=== PATIENT | male | born 1935 | race Caucasian/White ===

== ENCOUNTER → 2016-08-20 | Outpatient (CLI) | payer OTHER ==
[~2016-08-20] MED LIST: ALLO300T2 PO; ASPI81TA28 PO; GLC/500 PO; GLIP5TAB3 PO; INDA1TAB3 PO; LEVO125T72 PO; LOSA1TAB38 PO; SIMV40TA2 PO; VSK5 PO
[2016-08-21 06:59] LABS: ESTIMATED AVERAGE GLUCOSE 134 mg/dl; HA1C FLAG Normal (Normal)
== END | disposition home or self-care (01) ==
LOC: C.LAB1850 15:00
PROVIDERS: ATTEND Internal Medicine
DX: E11.9 Type 2 diabetes mellitus without complications (principal)

== ENCOUNTER → 2016-11-18 | Outpatient (CLI) | payer OTHER ==
[2016-11-18 09:38] LABS: BASO % 0.2 %; BASO ABS # 0.02 K/uL (0-0.2); COMPLETE YES; EOS % 5.9 %; HEMATOCRIT 40.3 % (42-52); IG% 0.5 %; LYMPH % 32.9 %; LYMPH ABS # 2.77 K/uL (1.2-3.4); MEAN CELL VOLUME 89.2 fL (80-100); MEAN CORPUSCULAR HEMOGLOBIN 29.2 pg (25-34); MEAN CORPUSCULAR HGB CONC 32.8 g/dl (32-36); MEAN PLATELET VOLUME 12.1 fL (7.4-10.4); MONO % 7.5 %; PLATELET COUNT 190 K/uL (130-400); RED BLOOD COUNT 4.52 M/uL (4.7-6.1); WHITE BLOOD COUNT 8.41 K/uL (4.8-10.8)
[2016-11-18 09:56] LABS: ESTIMATED AVERAGE GLUCOSE 143 mg/dl; HA1C FLAG Normal (Normal)
[2016-11-18 10:01] LABS: ALT/SGPT 27 U/L (12-78); AST/SGOT 13 U/L (15-37); BLOOD UREA NITROGEN 18 mg/dl (7-18); CALCIUM 8.8 mg/dl (8.5-10.1); CARBON DIOXIDE 31 mmol/L (21-32); CHLORIDE 103 mmol/L (98-107); GLUCOSE 121 mg/dl (70-99); POTASSIUM 4.1 mmol/L (3.5-5.1); SODIUM 138 mmol/L (136-145)
[2016-11-18 10:12] LABS: CHOLESTEROL 82 mg/dl (0-200); CHOLESTEROL/HDL RATIO 2.3; HDL CHOLESTEROL 35 mg/dl; LDL CHOLESTEROL CALCULATED 31 mg/dl; THYROID STIMULATING HORMONE 0.544 uIu/ml (0.300-4.500); TRIGLYCERIDES 79 mg/dl (0-150); VERY LOW DENSITY LIPOPROT CALC 16 mg/dl
== END | disposition home or self-care (01) ==
LOC: C.LAB1850 08:08
PROVIDERS: ATTEND Internal Medicine
DX: E11.9 Type 2 diabetes mellitus without complications (principal)

== ENCOUNTER → 2016-12-30 | Outpatient (CLI) | payer OTHER ==
[~2016-12-30] MED LIST changes: +OPTIRAY 320 IV PRN
--- NOTE | 2016-12-30 12:14 | DIAGNOSTIC IMAGING REPORT ---
MAXILLOFACIAL CT WITH CONTRAST CLINICAL HISTORY: Right cheek mass. TECHNIQUE: Helical axial images of the face were obtained following intravenous injection of 92 cc Optiray 320 IV. Sagittal and coronal reconstructions were viewed. COMPARISON STUDY: None. FINDINGS: Visualization portions of the intracranial contents are unremarkable. There is no upper cervical lymphadenopathy. There is moderate polypoid mucosal thickening of the maxillary sinuses. There are no areas of bony destruction. Note is made of a 5.4 x 3.5 x 3.1 cm fat containing mass of the right aspect of the face which overlies the right masseter muscle. This appears to be intimately associated with the underlying masseter muscle and appears to have a capsule. Areas of increased attenuation within this fatty lesion are present. This mass abuts the right parotid gland. This reflects the palpable abnormality. No additional masses within the face are identified on this examination. IMPRESSION: 5.4 x 3.5 x 3.1 cm complex fat-containing right facial mass which reflects the palpable abnormality. This mass is intimately associated with the underlying right masseter muscle and appears to have a capsule. Although predominantly fatty, areas of increased attenuation are noted within this lesion and therefore this does not reflect a typical lipoma. Differential considerations include an atypical lipoma or liposarcoma. Surgical consultation is recommended. Electronically signed by: Stephen Florian M.D. 12/30/2016 12:13 PM Dictated Date/Time: 12/30/2016 11:55 AM
== END | disposition home or self-care (01) ==
LOC: C.CTS 11:20
PROVIDERS: ATTEND Dentist Oral and Maxillofacial Surgery
DX: R22.0 Localized swelling, mass and lump, head (principal)

== ENCOUNTER → 2017-01-06 | Outpatient (CLI) | payer OTHER ==
[~2017-01-06] MED LIST changes: -OPTIRAY 320 IV PRN
== END | disposition home or self-care (01) ==
LOC: C.PATH 08:09
PROVIDERS: ATTEND Dentist Oral and Maxillofacial Surgery
DX: R22.0 Localized swelling, mass and lump, head (principal)

== ENCOUNTER → 2017-03-23 | Outpatient (CLI) | payer OTHER ==
[2017-03-23 12:43] LABS: ESTIMATED AVERAGE GLUCOSE 137 mg/dl; HA1C FLAG Normal (Normal)
--- NOTE | 2017-04-02 07:40 | CODING QUERY MEDICAL NECESSITY ---
CQSUPPORTING DIAGNOSIS NEEDED A supporting diagnosis is required for the test/procedure performed on this patient in order for us to be reimbursed by the patient's insurance. Please provide a supporting diagnosis for the following test/procedure listed below next to the test name along with your signature. *If there is no additional diagnosis for this patient that would support the following test/procedure please document that below next to the test/procedure. Test(s)/Procedure(s) that require a supporting diagnosis: DOS 03/23/17 GLYCATED HEMOGLOBIN TEST Provider Signature: Date: Thank you Makayla Rocha Health Information Management Once completed, please kindly fax back to [phone] For questions please call [phone]
== END | disposition home or self-care (01) ==
LOC: C.LAB1850 09:59
PROVIDERS: ATTEND Internal Medicine
DX: E78.00 Pure hypercholesterolemia, unspecified (principal)

== ENCOUNTER → 2017-06-29 | Outpatient (CLI) | payer OTHER ==
[2017-06-29 09:41] LABS: BASO % 0.2 %; BASO ABS # 0.02 K/uL (0-0.2); COMPLETE YES; EOS % 6.1 %; HEMATOCRIT 42.1 % (42-52); IG% 0.4 %; LYMPH % 29.9 %; LYMPH ABS # 2.86 K/uL (1.2-3.4); MEAN CELL VOLUME 90.5 fL (80-100); MEAN CORPUSCULAR HEMOGLOBIN 29.2 pg (25-34); MEAN CORPUSCULAR HGB CONC 32.3 g/dl (32-36); MEAN PLATELET VOLUME 12.9 fL (7.4-10.4); MONO % 9.6 %; NEUT % 53.8 %; PLATELET COUNT 164 K/uL (130-400); RED BLOOD COUNT 4.65 M/uL (4.7-6.1); WHITE BLOOD COUNT 9.55 K/uL (4.8-10.8)
[2017-06-29 09:59] LABS: URINE APPEARANCE CLEAR (CLEAR); URINE BILIRUBIN NEG (NEG); URINE COLOR YELLOW; URINE NITRITE NEG (NEG); URINE SPECIFIC GRAVITY 1.018 (1.000-1.030); UROBILINOGEN NEG (NEG)
[2017-06-29 10:03] LABS: MANUAL MICROSCOPIC REQUIRED? NO; REVIEW REQ? NO
[2017-06-29 10:32] LABS: ESTIMATED AVERAGE GLUCOSE 134 mg/dl; HA1C FLAG Normal (Normal)
[2017-06-29 10:35] LABS: ALT/SGPT 27 U/L (12-78); AST/SGOT 14 U/L (15-37); BLOOD UREA NITROGEN 24 mg/dl (7-18); BUN/CREATININE RATIO 21.8 (10-20); CALCIUM 9.1 mg/dl (8.5-10.1); CARBON DIOXIDE 30 mmol/L (21-32); CHLORIDE 101 mmol/L (98-107); CREATININE 1.12 mg/dl (0.60-1.40); GLUCOSE 98 mg/dl (70-99); POTASSIUM 4.2 mmol/L (3.5-5.1); SODIUM 136 mmol/L (136-145)
[2017-06-29 10:45] LABS: CHOLESTEROL 86 mg/dl (0-200); CHOLESTEROL/HDL RATIO 2.4; HDL CHOLESTEROL 36 mg/dl; LDL CHOLESTEROL CALCULATED 29 mg/dl; THYROID STIMULATING HORMONE 0.908 uIu/ml (0.300-4.500); TRIGLYCERIDES 105 mg/dl (0-150); URIC ACID 3.9 mg/dl (2.6-7.2); VERY LOW DENSITY LIPOPROT CALC 21 mg/dl
== END | disposition home or self-care (01) ==
LOC: C.LAB1850 07:40
PROVIDERS: ATTEND Internal Medicine
DX: E11.9 Type 2 diabetes mellitus without complications (principal)

== ENCOUNTER → 2017-09-28 | Outpatient (CLI) | payer OTHER ==
[2017-09-28 12:33] LABS: HEMOGLOBIN A1C 6.1 % (4.5-5.6)
== END | disposition home or self-care (01) ==
LOC: C.LAB1850 10:02
PROVIDERS: ATTEND Internal Medicine
DX: E11.9 Type 2 diabetes mellitus without complications (principal)

== ENCOUNTER 2020-06-06 21:32 | Inpatient (IN) ==
[2020-06-06 22:06] LABS: Basophils # (auto) 0.02 K/uL (0-0.2); Basophils % (auto) 0.2 %; Eosinophils # (auto) 0.51 K/uL (0-0.5); Eosinophils % (auto) 4.8 %; Hematocrit (blood only) 39.7 % (42-52); Hemoglobin 12.6 g/dL (14.0-18.0); Immature Granulocytes # (auto) 0.04 K/uL (0.00-0.02); Immature Granulocytes % (auto) 0.4 %; Lymphocytes # (auto) 2.32 K/uL (1.2-3.4); Lymphocytes % (auto) 21.7 %; Mean Corpuscular Hemoglobin 27.5 pg (25-34); Mean Corpuscular Hgb Conc 31.7 g/dL (32-36); Mean Corpuscular Volume 86.7 fL (80-100); Mean Platelet Volume 12.2 fL (7.4-10.4); Monocytes % (auto) 6.6 %; Neutrophils # (auto) 7.08 K/uL (1.4-6.5); Neutrophils % (auto) 66.3 %; Platelet Count 195 K/uL (130-400); RDW Coefficient of Variation 14.5 % (11.5-14.5); RDW Standard Deviation 45.5 fL (36.4-46.3); Red Blood Count 4.58 M/uL (4.7-6.1); White Blood Count 10.67 K/uL (4.8-10.8)
[2020-06-06 22:16] LABS: Partial Thromboplastin Ratio 1.1; Partial Thromboplastin Time 30.3 Seconds (21.0-31.0); Prothrombin Time 10.5 Seconds (9.0-12.0)
[2020-06-06 22:21] LABS: Alanine Aminotransferase 24 U/L (12-78); Albumin Level 3.8 gm/dl (3.4-5.0); Aspartate Aminotransferase 15 U/L (15-37); BUN Creatinine Ratio 20.9 (10-20); Blood Urea Nitrogen 24 mg/dl (7-18); Calcium 8.8 mg/dl (8.5-10.1); Carbon Dioxide 29 mmol/L (21-32); Chloride 104 mmol/L (98-107); Creatinine Clr Calc Pharmacy 48.1 ml/min; Est GFR (African American) 66.2; Est GFR (Non-African American) 57.1; Glucose 140 mg/dl (70-99); Lipase 84 U/L (73-393); Potassium 4.1 mmol/L (3.5-5.1); Sodium 138 mmol/L (136-145)
[2020-06-06 22:26] LABS: Alkaline Phosphatase 63 U/L (45-117); Bilirubin,Total 0.4 mg/dl (0.2-1); Globulin 3.8 gm/dl (2.5-4.0); Total Protein 7.6 gm/dl (6.4-8.2); Troponin I < 0.015 ng/ml (0-0.045)
[2020-06-06] MEDS ORDERED: ACETAMINOPHEN 1,000 MG/100 ML VIAL IV STA (23:32)
--- NOTE | 2020-06-06 23:36 | Emergency Department Note ---
History of Present Illness General Chief complaint: Chest Pain Stated complaint: CHEST PAIN Time Seen by Provider: 06/06/20 23:02 Source: patient Mode of arrival: ambulatory Limitations: no limitations History of Present Illness Provider complaint: Chest pain, abdominal pain Onset (ago): hour(s) 3 Location: chest and abdomen Radiation: back and abdomen Severity: moderate Pain Consistency: + constant Maximum Pain Intensity: 8 Current Pain Intensity: 3 Quality: + constant Relieved By: + none Associated symptoms: + denies other symptoms This is an 84-year-old male presents the emergency department after developing abdominal pain following a large meal this evening. Patient states that he ate at the [employer] where he ate more than usual, heavier and richer foods than usual, and also had a small glass of wine. Patient states that the end of the meal he noticed he started to not feel well in his upper abdomen, describes this as a discomfort. Patient states he went to the bathroom and tried to take some Tums. States after this he began to notice the sense of discomfort was coming upwards into the lower part of his chest. At the same time he also noticed some accompanying back pain. Patient denies nausea vomiting, cough or shortness of breath, fevers or chills. Patient denies any recent change in bowel movements or urine. Patient states he felt well prior to the meal. Patient denies overt history of reflux, peptic ulcer disease, or IBS. Patient states he does still have his gallbladder. Patient was most concerned about the chest discomfort with that as when this occurred he checked his blood pressure at home and found it to be markedly elevated. Patient states the chest pain and back pain then resolved on their own, now he has some mild abdominal discomfort yet although feels it is slightly lower than where it originally started. Patient is a diabetic, states he feels his blood sugars have been well controlled recently however cannot recall the numbers. No recent sick contacts, no known exposure to coronavirus. at bedside states she feels fine. Pt seen during a time of high acuity and national emergency pandemic while wearing PPE. Home Medications Home Medications Medication Instructions Recorded Confirmed Type ketoconazole 1 applic TOPICAL BID PRN 04/28/18 06/07/20 History multivitamin 1 cap PO DAILY 02/28/19 06/07/20 History metformin 500 mg tablet,extended 1,000 mg PO BID #360 tab 07/04/19 06/07/20 Rx release 24 hr indapamide 1.25 mg tablet 1.25 mg PO QAM #90 tab 10/17/19 06/07/20 Rx levothyroxine 150 mcg tablet 150 mcg PO QAM #90 tab 10/17/19 06/07/20 Rx omeprazole 20 mg capsule,delayed 20 mg PO QAM #90 cap 10/17/19 06/07/20 Rx release allopurinol 300 mg tablet 300 mg PO QAM #90 tab 11/02/19 06/07/20 Rx nitroglycerin 0.4 mg sublingual 0.4 mg SUBLINGUAL UD PRN #25 tab 11/24/19 06/07/20 Rx tablet pindolol 5 mg tablet 5 mg PO BID tab 01/26/20 06/07/20 History losartan 100 mg tablet 100 mg PO DAILY #90 tab 02/09/20 06/07/20 Rx dicyclomine 10 mg capsule 10 mg PO QAM #90 cap 02/13/20 06/07/20 Rx glipizide 5 mg tablet, extended 5 mg PO BID 90 Days #180 tab 04/05/20 06/07/20 Rx release 24 hr aspirin 81 mg PO HS 06/07/20 06/07/20 History simvastatin [Zocor] 40 mg PO HS 06/07/20 06/07/20 History Allergies Allergy/AdvReac Type Severity Reaction Status Date / Time lisinopril Allergy Severe FACE SWELLS Verified 06/07/20 00:17 Past Med/Surg History Medical History Acid reflux Angioedema CAD (coronary artery disease) Coronary artery disease, occlusive Diabetes mellitus Dysphagia Gout, joint Hearing loss Hiatal hernia High cholesterol Hypercholesterolemia Hypertension Hypertension Hypothyroidism Type 2 diabetes mellitus Vertigo Surgical History History of cardiac cath "ANGIOPLASTY" X2 - 1994, 1996 1996 - STENT X 1 History of cataract surgery History of colonoscopy History of heart artery stent X 1 - 1996 History of left knee surgery X3 History of shoulder surgery RIGHT/DISLOCATED Family History (Updated 06/07/20 @ 21:55 by Dereck Stevens DO) Other Heart disease Hypertension Social History Smoking Status: Former smoker Cigarettes Per Day: 45 YEARS AGO; Second Hand Exposure: No; Do You Dip or Chew Tobacco: No; Tobacco Cessation Education Requested by Patient: No Hx Alcohol Use: Yes Alcohol type: wine Hx Substance Use: No Preferred Language: Filipino Communication Ability: Effective 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 and A total of 10 systems reviewed and were otherwise negative Physical Exam Vital Signs Vital Signs - 24 hr 06/07/20 00:00 06/07/20 00:30 06/07/20 01:21 Temperature Temperature Source Pulse Rate 69 67 65 Pulse Rate [Apical] Pulse Rate from SpO2 Sensor 68 62 69 Pulse Rhythm [Apical] Pulse Strength [Apical] Respiratory Rate 23 20 20 Respiratory Effort / Characteristics Respiratory Depth Respiratory Pattern Blood Pressure 160/78 H 169/104 H 172/77 H Blood Pressure [Left Arm] Blood Pressure Mean 99 125 95 Blood Pressure Mean [Left Arm] Blood Pressure Position [Left Arm] Pulse Oximetry 91 93 92 Pulse Oximetry [Right Index Finger] Oxygen Delivery Method Oxygen Delivery Method [Right Index Finger] Oxygen Flow Rate Oxygen Flow Rate [Right Index Finger] Oxygen Flow Rate - Titration Pulse Oximetry Post Tiitration 06/07/20 01:30 06/07/20 02:00 06/07/20 02:30 Temperature Temperature Source Pulse Rate 67 77 69 Pulse Rate [Apical] Pulse Rate from SpO2 Sensor 67 75 69 Pulse Rhythm [Apical] Pulse Strength [Apical] Respiratory Rate 20 17 18 Respiratory Effort / Characteristics Respiratory Depth Respiratory Pattern Blood Pressure 174/76 H 173/83 H 186/80 H Blood Pressure [Left Arm] Blood Pressure Mean 112 115 110 Blood Pressure Mean [Left Arm] Blood Pressure Position [Left Arm] Pulse Oximetry 92 91 90 Pulse Oximetry [Right Index Finger] Oxygen Delivery Method Oxygen Delivery Method [Right Index Finger] Oxygen Flow Rate Oxygen Flow Rate [Right Index Finger] Oxygen Flow Rate - Titration Pulse Oximetry Post Tiitration 06/07/20 03:00 06/07/20 03:30 06/07/20 04:00 Temperature Temperature Source Pulse Rate 82 81 78 Pulse Rate [Apical] Pulse Rate from SpO2 Sensor 81 80 85 Pulse Rhythm [Apical] Pulse Strength [Apical] Respiratory Rate 23 16 18 Respiratory Effort / Characteristics Respiratory Depth Respiratory Pattern Blood Pressure 174/95 H 193/99 H 161/89 H Blood Pressure [Left Arm] Blood Pressure Mean 116 141 102 Blood Pressure Mean [Left Arm] Blood Pressure Position [Left Arm] Pulse Oximetry 95 93 92 Pulse Oximetry [Right Index Finger] Oxygen Delivery Method Room Air Room Air Room Air Oxygen Delivery Method [Right Index Finger] Oxygen Flow Rate Oxygen Flow Rate [Right Index Finger] Oxygen Flow Rate - Titration Pulse Oximetry Post Tiitration 06/07/20 05:00 06/07/20 05:18 06/07/20 05:30 Temperature Temperature Source Pulse Rate 83 72 Pulse Rate [Apical] Pulse Rate from SpO2 Sensor 78 76 Pulse Rhythm [Apical] Pulse Strength [Apical] Respiratory Rate 16 19 Respiratory Effort / Characteristics Respiratory Depth Respiratory Pattern Blood Pressure 172/91 H 174/92 H Blood Pressure [Left Arm] Blood Pressure Mean 134 112 Blood Pressure Mean [Left Arm] Blood Pressure Position [Left Arm] Pulse Oximetry 93 86 L 93 Pulse Oximetry [Right Index Finger] Oxygen Delivery Method Room Air Nasal Cannula Nasal Cannula Oxygen Delivery Method [Right Index Finger] Oxygen Flow Rate 0 2 Oxygen Flow Rate [Right Index Finger] Oxygen Flow Rate - Titration 2 Pulse Oximetry Post Tiitration 94 06/07/20 06:00 06/07/20 06:30 06/07/20 07:00 Temperature Temperature Source Pulse Rate 76 81 78 Pulse Rate [Apical] Pulse Rate from SpO2 Sensor 74 84 79 Pulse Rhythm [Apical] Pulse Strength [Apical] Respiratory Rate 16 21 20 Respiratory Effort / Characteristics Respiratory Depth Respiratory Pattern Blood Pressure 174/86 H 173/96 H 178/91 H Blood Pressure [Left Arm] Blood Pressure Mean 115 120 120 Blood Pressure Mean [Left Arm] Blood Pressure Position [Left Arm] Pulse Oximetry 94 95 91 Pulse Oximetry [Right Index Finger] Oxygen Delivery Method Nasal Cannula Room Air Room Air Oxygen Delivery Method [Right Index Finger] Oxygen Flow Rate 2 Oxygen Flow Rate [Right Index Finger] Oxygen Flow Rate - Titration Pulse Oximetry Post Tiitration 06/07/20 07:30 06/07/20 07:55 06/07/20 08:00 Temperature Temperature Source Pulse Rate 81 83 Pulse Rate [Apical] Pulse Rate from SpO2 Sensor 82 83 Pulse Rhythm [Apical] Pulse Strength [Apical] Respiratory Rate 13 24 Respiratory Effort / Characteristics Respiratory Depth Respiratory Pattern Blood Pressure 168/86 H 185/95 H Blood Pressure [Left Arm] Blood Pressure Mean 98 107 Blood Pressure Mean [Left Arm] Blood Pressure Position [Left Arm] Pulse Oximetry 90 95 Pulse Oximetry [Right Index Finger] Oxygen Delivery Method Room Air Oxygen Delivery Method [Right Index Finger] Oxygen Flow Rate Oxygen Flow Rate [Right Index Finger] Oxygen Flow Rate - Titration Pulse Oximetry Post Tiitration 06/07/20 08:30 06/07/20 09:00 06/07/20 09:30 Temperature Temperature Source Pulse Rate 74 63 73 Pulse Rate [Apical] Pulse Rate from SpO2 Sensor 72 64 73 Pulse Rhythm [Apical] Pulse Strength [Apical] Respiratory Rate 14 18 19 Respiratory Effort / Characteristics Respiratory Depth Respiratory Pattern Blood Pressure 181/98 H 161/80 H 158/79 H Blood Pressure [Left Arm] Blood Pressure Mean 122 110 97 Blood Pressure Mean [Left Arm] Blood Pressure Position [Left Arm] Pulse Oximetry 96 93 95 Pulse Oximetry [Right Index Finger] Oxygen Delivery Method Oxygen Delivery Method [Right Index Finger] Oxygen Flow Rate Oxygen Flow Rate [Right Index Finger] Oxygen Flow Rate - Titration Pulse Oximetry Post Tiitration 06/07/20 09:48 06/07/20 10:00 06/07/20 10:10 Temperature Temperature Source Pulse Rate 81 Pulse Rate [Apical] 75 Pulse Rate from SpO2 Sensor 80 Pulse Rhythm [Apical] Pulse Strength [Apical] Respiratory Rate 20 18 15 Respiratory Effort / Characteristics Non-Labored Spontaneous Respiratory Depth Normal Respiratory Pattern Blood Pressure 149/76 H Blood Pressure [Left Arm] 158/79 H Blood Pressure Mean 106 Blood Pressure Mean [Left Arm] 105 Blood Pressure Position [Left Arm] Pulse Oximetry 95 95 Pulse Oximetry [Right Index Finger] Oxygen Delivery Method Room Air Oxygen Delivery Method [Right Index Finger] Oxygen Flow Rate Oxygen Flow Rate [Right Index Finger] Oxygen Flow Rate - Titration Pulse Oximetry Post Tiitration 06/07/20 10:15 06/07/20 10:20 06/07/20 10:35 Temperature Temperature Source Pulse Rate 79 Pulse Rate [Apical] Pulse Rate from SpO2 Sensor 82 Pulse Rhythm [Apical] Pulse Strength [Apical] Respiratory Rate 18 Respiratory Effort / Characteristics Respiratory Depth Respiratory Pattern Blood Pressure Blood Pressure [Left Arm] Blood Pressure Mean Blood Pressure Mean [Left Arm] Blood Pressure Position [Left Arm] Pulse Oximetry 96 Pulse Oximetry [Right Index Finger] 95 Oxygen Delivery Method Oxygen Delivery Method [Right Index Finger] Room Air Oxygen Flow Rate Oxygen Flow Rate [Right Index Finger] Oxygen Flow Rate - Titration Pulse Oximetry Post Tiitration 06/07/20 10:36 06/07/20 10:40 06/07/20 10:50 Temperature Temperature Source Pulse Rate Pulse Rate [Apical] Pulse Rate from SpO2 Sensor 73 71 67 Pulse Rhythm [Apical] Pulse Strength [Apical] Respiratory Rate Respiratory Effort / Characteristics Respiratory Depth Respiratory Pattern Blood Pressure 182/92 H Blood Pressure [Left Arm] Blood Pressure Mean 114 Blood Pressure Mean [Left Arm] Blood Pressure Position [Left Arm] Pulse Oximetry 98 95 92 Pulse Oximetry [Right Index Finger] Oxygen Delivery Method Oxygen Delivery Method [Right Index Finger] Oxygen Flow Rate Oxygen Flow Rate [Right Index Finger] Oxygen Flow Rate - Titration Pulse Oximetry Post Tiitration 06/07/20 11:00 06/07/20 11:10 06/07/20 11:20 Temperature Temperature Source Pulse Rate Pulse Rate [Apical] Pulse Rate from SpO2 Sensor 68 68 68 Pulse Rhythm [Apical] Pulse Strength [Apical] Respiratory Rate Respiratory Effort / Characteristics Respiratory Depth Respiratory Pattern Blood Pressure 130/75 Blood Pressure [Left Arm] Blood Pressure Mean 85 Blood Pressure Mean [Left Arm] Blood Pressure Position [Left Arm] Pulse Oximetry 92 93 93 Pulse Oximetry [Right Index Finger] 96 Oxygen Delivery Method Oxygen Delivery Method [Right Index Finger] Room Air Oxygen Flow Rate Oxygen Flow Rate [Right Index Finger] 2 Oxygen Flow Rate - Titration Pulse Oximetry Post Tiitration 06/07/20 11:30 06/07/20 12:00 06/07/20 12:30 Temperature Temperature Source Pulse Rate Pulse Rate [Apical] Pulse Rate from SpO2 Sensor 64 Pulse Rhythm [Apical] Pulse Strength [Apical] Respiratory Rate Respiratory Effort / Characteristics Respiratory Depth Respiratory Pattern Blood Pressure 131/65 145/73 H 153/80 H Blood Pressure [Left Arm] Blood Pressure Mean 89 96 119 Blood Pressure Mean [Left Arm] Blood Pressure Position [Left Arm] Pulse Oximetry 92 Pulse Oximetry [Right Index Finger] 95 Oxygen Delivery Method Oxygen Delivery Method [Right Index Finger] Room Air Oxygen Flow Rate Oxygen Flow Rate [Right Index Finger] Oxygen Flow Rate - Titration Pulse Oximetry Post Tiitration 06/07/20 12:36 06/07/20 12:37 06/07/20 12:40 Temperature Temperature Source Pulse Rate 63 63 64 Pulse Rate [Apical] Pulse Rate from SpO2 Sensor 64 63 63 Pulse Rhythm [Apical] Pulse Strength [Apical] Respiratory Rate 17 15 18 Respiratory Effort / Characteristics Respiratory Depth Respiratory Pattern Blood Pressure 151/81 H Blood Pressure [Left Arm] Blood Pressure Mean 116 Blood Pressure Mean [Left Arm] Blood Pressure Position [Left Arm] Pulse Oximetry 95 94 94 Pulse Oximetry [Right Index Finger] Oxygen Delivery Method Oxygen Delivery Method [Right Index Finger] Oxygen Flow Rate Oxygen Flow Rate [Right Index Finger] Oxygen Flow Rate - Titration Pulse Oximetry Post Tiitration 06/07/20 12:50 06/07/20 13:00 06/07/20 13:10 Temperature Temperature Source Pulse Rate 62 72 70 Pulse Rate [Apical] Pulse Rate from SpO2 Sensor 64 59 L 70 Pulse Rhythm [Apical] Pulse Strength [Apical] Respiratory Rate 20 17 26 H Respiratory Effort / Characteristics Respiratory Depth Respiratory Pattern Blood Pressure 174/78 H Blood Pressure [Left Arm] Blood Pressure Mean 87 Blood Pressure Mean [Left Arm] Blood Pressure Position [Left Arm] Pulse Oximetry 96 95 97 Pulse Oximetry [Right Index Finger] Oxygen Delivery Method Oxygen Delivery Method [Right Index Finger] Oxygen Flow Rate Oxygen Flow Rate [Right Index Finger] Oxygen Flow Rate - Titration Pulse Oximetry Post Tiitration 06/07/20 13:20 06/07/20 13:30 06/07/20 13:39 Temperature Temperature Source Pulse Rate 66 65 Pulse Rate [Apical] Pulse Rate from SpO2 Sensor 64 64 Pulse Rhythm [Apical] Pulse Strength [Apical] Respiratory Rate 18 18 Respiratory Effort / Characteristics Respiratory Depth Respiratory Pattern Blood Pressure 153/75 H Blood Pressure [Left Arm] Blood Pressure Mean 93 Blood Pressure Mean [Left Arm] Blood Pressure Position [Left Arm] Pulse Oximetry 93 97 96 Pulse Oximetry [Right Index Finger] Oxygen Delivery Method Room Air Oxygen Delivery Method [Right Index Finger] Oxygen Flow Rate Oxygen Flow Rate [Right Index Finger] Oxygen Flow Rate - Titration Pulse Oximetry Post Tiitration 06/07/20 13:40 06/07/20 13:50 06/07/20 14:00 Temperature Temperature Source Pulse Rate 69 67 68 Pulse Rate [Apical] Pulse Rate from SpO2 Sensor 69 67 68 Pulse Rhythm [Apical] Pulse Strength [Apical] Respiratory Rate 21 19 19 Respiratory Effort / Characteristics Respiratory Depth Respiratory Pattern Blood Pressure 158/71 H Blood Pressure [Left Arm] Blood Pressure Mean 79 Blood Pressure Mean [Left Arm] Blood Pressure Position [Left Arm] Pulse Oximetry 95 92 96 Pulse Oximetry [Right Index Finger] Oxygen Delivery Method Oxygen Delivery Method [Right Index Finger] Oxygen Flow Rate Oxygen Flow Rate [Right Index Finger] Oxygen Flow Rate - Titration Pulse Oximetry Post Tiitration 06/07/20 14:10 06/07/20 14:20 06/07/20 14:30 Temperature Temperature Source Pulse Rate 70 75 68 Pulse Rate [Apical] Pulse Rate from SpO2 Sensor 69 75 67 Pulse Rhythm [Apical] Pulse Strength [Apical] Respiratory Rate 18 15 11 L Respiratory Effort / Characteristics Respiratory Depth Respiratory Pattern Blood Pressure Blood Pressure [Left Arm] Blood Pressure Mean Blood Pressure Mean [Left Arm] Blood Pressure Position [Left Arm] Pulse Oximetry 95 93 94 Pulse Oximetry [Right Index Finger] Oxygen Delivery Method Oxygen Delivery Method [Right Index Finger] Oxygen Flow Rate Oxygen Flow Rate [Right Index Finger] Oxygen Flow Rate - Titration Pulse Oximetry Post Tiitration 06/07/20 14:31 06/07/20 14:40 06/07/20 14:50 Temperature Temperature Source Pulse Rate 68 65 68 Pulse Rate [Apical] Pulse Rate from SpO2 Sensor 68 65 67 Pulse Rhythm [Apical] Pulse Strength [Apical] Respiratory Rate 4 L 12 9 L Respiratory Effort / Characteristics Respiratory Depth Respiratory Pattern Blood Pressure 183/92 H Blood Pressure [Left Arm] Blood Pressure Mean 123 Blood Pressure Mean [Left Arm] Blood Pressure Position [Left Arm] Pulse Oximetry 94 95 96 Pulse Oximetry [Right Index Finger] Oxygen Delivery Method Oxygen Delivery Method [Right Index Finger] Oxygen Flow Rate Oxygen Flow Rate [Right Index Finger] Oxygen Flow Rate - Titration Pulse Oximetry Post Tiitration 06/07/20 15:00 06/07/20 15:01 06/07/20 15:03 Temperature Temperature Source Pulse Rate 62 64 67 Pulse Rate [Apical] Pulse Rate from SpO2 Sensor 62 62 59 L Pulse Rhythm [Apical] Pulse Strength [Apical] Respiratory Rate 14 19 17 Respiratory Effort / Characteristics Respiratory Depth Respiratory Pattern Blood Pressure 168/120 H 182/75 H Blood Pressure [Left Arm] Blood Pressure Mean 141 98 Blood Pressure Mean [Left Arm] Blood Pressure Position [Left Arm] Pulse Oximetry 97 97 97 Pulse Oximetry [Right Index Finger] Oxygen Delivery Method Oxygen Delivery Method [Right Index Finger] Oxygen Flow Rate Oxygen Flow Rate [Right Index Finger] Oxygen Flow Rate - Titration Pulse Oximetry Post Tiitration 06/07/20 15:10 06/07/20 15:11 06/07/20 15:12 Temperature Temperature Source Pulse Rate 62 69 Pulse Rate [Apical] Pulse Rate from SpO2 Sensor 60 64 Pulse Rhythm [Apical] Pulse Strength [Apical] Respiratory Rate 17 20 Respiratory Effort / Characteristics Respiratory Depth Respiratory Pattern Blood Pressure 154/77 H Blood Pressure [Left Arm] 154/77 H Blood Pressure Mean 102 Blood Pressure Mean [Left Arm] 102 Blood Pressure Position [Left Arm] Pulse Oximetry 96 95 Pulse Oximetry [Right Index Finger] Oxygen Delivery Method Oxygen Delivery Method [Right Index Finger] Oxygen Flow Rate Oxygen Flow Rate [Right Index Finger] Oxygen Flow Rate - Titration Pulse Oximetry Post Tiitration 06/07/20 15:20 06/07/20 15:30 06/07/20 15:31 Temperature Temperature Source Pulse Rate 65 65 Pulse Rate [Apical] Pulse Rate from SpO2 Sensor 65 64 Pulse Rhythm [Apical] Pulse Strength [Apical] Respiratory Rate 17 20 Respiratory Effort / Characteristics Respiratory Depth Respiratory Pattern Blood Pressure 142/67 H Blood Pressure [Left Arm] Blood Pressure Mean 81 Blood Pressure Mean [Left Arm] Blood Pressure Position [Left Arm] Pulse Oximetry 92 92 92 Pulse Oximetry [Right Index Finger] Oxygen Delivery Method Room Air Oxygen Delivery Method [Right Index Finger] Oxygen Flow Rate Oxygen Flow Rate [Right Index Finger] Oxygen Flow Rate - Titration Pulse Oximetry Post Tiitration 06/07/20 15:40 06/07/20 15:42 06/07/20 15:46 Temperature Temperature Source Pulse Rate 66 65 Pulse Rate [Apical] 63 Pulse Rate from SpO2 Sensor 60 60 Pulse Rhythm [Apical] Regular Pulse Strength [Apical] Normal Respiratory Rate 16 17 17 Respiratory Effort / Characteristics Non-Labored Respiratory Depth Normal Respiratory Pattern Regular Blood Pressure 142/64 H Blood Pressure [Left Arm] 120/61 Blood Pressure Mean 69 Blood Pressure Mean [Left Arm] 80 Blood Pressure Position [Left Arm] Lying Pulse Oximetry 93 93 93 Pulse Oximetry [Right Index Finger] Oxygen Delivery Method Nasal Cannula Oxygen Delivery Method [Right Index Finger] Oxygen Flow Rate 2.5 Oxygen Flow Rate [Right Index Finger] Oxygen Flow Rate - Titration Pulse Oximetry Post Tiitration 06/07/20 16:00 06/07/20 16:25 06/07/20 19:00 Temperature 37.3 C 36.9 C Temperature Source Oral Oral Pulse Rate 69 Pulse Rate [Apical] 67 61 Pulse Rate from SpO2 Sensor Pulse Rhythm [Apical] Regular Pulse Strength [Apical] Normal Respiratory Rate 20 18 Respiratory Effort / Characteristics Non-Labored Spontaneous Respiratory Depth Normal Respiratory Pattern Regular Blood Pressure Blood Pressure [Left Arm] 124/65 113/68 Blood Pressure Mean Blood Pressure Mean [Left Arm] 84 83 Blood Pressure Position [Left Arm] Lying Lying Pulse Oximetry 93 96 Pulse Oximetry [Right Index Finger] Oxygen Delivery Method Nasal Cannula Room Air Nasal Cannula Oxygen Delivery Method [Right Index Finger] Oxygen Flow Rate 1 1 18 Oxygen Flow Rate [Right Index Finger] Oxygen Flow Rate - Titration Pulse Oximetry Post Tiitration GENERAL: alert, well appearing, well nourished, no distress, non-toxic EYE EXAM: normal conjunctiva, PERRL and EOM's grossly intact OROPHARYNX: no exudate, no erythema, lips, buccal mucosa, and tongue normal and mucous membranes are moist NECK: supple, no nuchal rigidity, no adenopathy, non-tender LUNGS: Clear to auscultation. Normal chest wall mechanics, no w/r/r HEART: no murmurs, S1 normal and S2 normal ABDOMEN: abdomen soft, non-tender, normo-active bowel sounds, no masses, no rebound or guarding. BACK: Back is symmetrical on inspection and there is no deformity, no midline tenderness, no CVA tenderness. SKIN: no rashes and no bruising UPPER EXTREMITIES: upper extremities are grossly normal. FROM, nml pulses b/l. LOWER EXTREMITIES: No pitting edema. FROM, nml pulses b/l. NEURO EXAM: Normal sensorium, cranial nerves II-XII grossly intact, normal speech, no gross weakness of arms, no gross weakness of legs. Gross sensation intact. Course Course 0302: Pt updated on results. States still having discomfort in his abdomen. feels he should stay until morning. They are concerned his BP was high but he did not have his nighttime pindolol. 0400: Pt had an episode of nausea and increased discomfort after getting up to use the restroom. [place] ordered and CT a/p. 0545: Pt still having discomfort. Discussed disposition. Discussed unclear etiology. 07: Case discussed with Dr. Stevens. Administered Medications Acetaminophen (Acetaminophen 325 Mg Tab) 650 mg PO Q4H PRN PRN Reason: Pain or Fever Stop: 07/07/20 08:32 Last Admin: 06/07/20 20:08 Dose: 650 mg Documented by: [id number] Aspirin (Aspirin 81 Mg Ectab) 81 mg PO HS [facility] Stop: 07/07/20 20:59 Last Admin: 06/07/20 21:18 Dose: 81 mg Documented by: [id number] Dicyclomine HCl (Dicyclomine Hcl 10 Mg Cap) 10 mg PO QAM MOUNA Stop: 07/07/20 08:59 Last Admin: 06/07/20 09:34 Dose: 10 mg Documented by: [id number] Enoxaparin Sodium (Enoxaparin Inj 40 Mg/0.4 Ml Syr) 40 mg SQ DAILY MOUNA Stop: 07/07/20 08:59 Last Admin: 06/07/20 09:36 Dose: 40 mg Documented by: [id number] Sodium Chloride (Nss) 500 mls @ 125 mls/hr IV .Q4H MOUNA Stop: 07/06/20 23:44 Last Admin: 06/07/20 21:04 Dose: 125 mls/hr Documented by: [id number] Infusion: 06/07/20 21:01 Dose: 125 mls/hr Documented by: [id number] Admin: 06/07/20 17:01 Dose: 125 mls/hr Documented by: [id number] Infusion: 06/07/20 17:01 Dose: 0 mls/hr Documented by: [id number] Infusion: 06/07/20 15:41 Dose: 0 mls/hr Documented by: [id number] Admin: 06/07/20 13:36 Dose: 125 mls/hr Documented by: [id number] Infusion: 06/07/20 12:45 Dose: 125 mls/hr Documented by: [id number] Admin: 06/07/20 08:45 Dose: 125 mls/hr Documented by: [id number] Infusion: 06/07/20 08:45 Dose: 125 mls/hr Documented by: [id number] Admin: 06/07/20 08:41 Dose: 125 mls/hr Documented by: [id number] Infusion: 06/07/20 05:04 Dose: 0 mls/hr Documented by: [id number] Admin: 06/06/20 23:46 Dose: 125 mls/hr Documented by: [id number] Heparin Sodium/Dextrose (Heparin Sodium/Dextrose) 25,000 units in 500 mls @ 26 mls/hr IV .[id number] MOUNA; Protocol Stop: 07/07/20 14:14 Last Titration: 06/07/20 22:32 Dose: 1,300 units/hr, 26 mls/hr Documented by: [id number] Cosigned by: [id number] Admin: 06/07/20 15:32 Dose: 1,400 units/hr, 28 mls/hr Documented by: [id number] Cosigned by: [id number] Indapamide (Indapamide 1.25 Mg Tab) 1.25 mg PO QAM [facility] Stop: 07/07/20 08:59 Last Admin: 06/07/20 09:34 Dose: 1.25 mg Documented by: [id number] Insulin Aspart (Insulin Aspart 100 Units/Ml 3 Ml Pen) 0 units SC ACHS [facility] Stop: 06/07/20 23:59 Last Admin: 06/07/20 21:17 Dose: Not Given Documented by: [id number] Insulin Glargine (Insulin Glargine Solostar 100 Units/Ml 3 Ml Pen) 8 units SC BID [facility] Stop: 07/07/20 20:59 Last Admin: 06/07/20 21:08 Dose: 6 units Documented by: [id number] Cosigned by: [id number] Losartan Potassium (Losartan Potassium 50 Mg Tab) 100 mg PO DAILY [facility] Stop: 07/07/20 08:59 Last Admin: 06/07/20 09:34 Dose: 100 mg Documented by: [id number] Nitroglycerin (Nitroglycerin Sl 0.4 Mg/Tab Tab) 0.4 mg SL UD PRN PRN Reason: Chest Pain Stop: 07/07/20 08:32 Last Admin: 06/07/20 15:42 Dose: 0.4 mg Documented by: [id number] Admin: 06/07/20 15:08 Dose: 0.4 mg Documented by: [id number] Ondansetron HCl (Ondansetron Inj 2 Mg/Ml 2 Ml Vial) 4 mg IV Q6H PRN PRN Reason: Nausea Stop: 07/07/20 08:32 Last Admin: 06/07/20 20:08 Dose: 4 mg Documented by: [id number] Pindolol (Pindolol 5 Mg Tablet) 1 ea PO BID [facility] Stop: 07/07/20 13:14 Last Admin: 06/07/20 21:19 Dose: 1 ea Documented by: [id number] Admin: 06/07/20 13:36 Dose: 1 ea Documented by: [id number] Simvastatin (Simvastatin 40 Mg Tab) 40 mg PO HS MOUNA Stop: 07/07/20 20:59 Last Admin: 06/07/20 21:18 Dose: 40 mg Documented by: [id number] Discontinued Medications Dicyclomine HCl (Dicyclomine Hcl 10 Mg Cap) 10 mg PO NOW ONE Stop: 06/07/20 02:58 Last Admin: 06/07/20 03:08 Dose: 10 mg Documented by: [id number] Famotidine (Famotidine 20mg/5ml Iv Push) 20 mg IV ONE STA Stop: 06/07/20 03:01 Last Admin: 06/07/20 03:08 Dose: 20 mg Documented by: [id number] Glipizide (Glipizide 5 Mg Tab) 5 mg PO NOW ONE Stop: 06/07/20 02:58 Last Admin: 06/07/20 03:22 Dose: 5 mg Documented by: [id number] Heparin Sodium/Dextrose (Heparin Iv Standard *No* Bolus) 1 ea IV Q1H MOUNA; Protocol Stop: 07/07/20 14:05 Last Admin: 06/07/20 17:03 Dose: Not Given Documented by: [id number] Admin: 06/07/20 17:03 Dose: Not Given Documented by: [id number] Acetaminophen (Ofirmev) 1,000 mg in 100 mls @ 400 mls/hr IV NOW STA Stop: 06/06/20 23:46 Last Infusion: 06/07/20 00:01 Dose: 0 mls/hr Documented by: [id number] Admin: 06/06/20 23:46 Dose: 400 mls/hr Documented by: [id number] Pantoprazole Sodium 40 mg/ (Syringe) 10 mls @ 5 mls/min IV NOW ONE Stop: 06/07/20 07:30 Last Admin: 06/07/20 08:25 Dose: 5 mls/min Documented by: [id number] Ioversol (Ioversol 100ml) 100 ml IV ONCE ONE Stop: 06/07/20 04:43 Last Admin: 06/07/20 04:42 Dose: 93 ml Documented by: [id number] Isosorbide Mononitrate (Isosorbide [place] Extended Rel 30 Mg Tabcr) 30 mg PO NOW ONE Stop: 06/07/20 14:18 Last Admin: 06/07/20 15:02 Dose: 30 mg Documented by: [id number] Ondansetron HCl (Ondansetron Inj 2 Mg/Ml 2 Ml Vial) 4 mg IV NOW STA Stop: 06/07/20 03:48 Last Admin: 06/07/20 05:05 Dose: Not Given Documented by: [id number] Ondansetron HCl (Ondansetron Inj 2 Mg/Ml 2 Ml Vial) 4 mg IV NOW STA Stop: 06/07/20 14:18 Last Admin: 06/07/20 15:01 Dose: 4 mg Documented by: [id number] Medical Decision Making Differential Diagnosis Differential diagnoses includes but is not limited to gastritis, peptic ulcer disease, GERD, gallbladder disease, pancreatitis, small bowel obstruction, acute coronary syndrome, pericarditis, ischemic bowel, irritable bowel disease, irritable bowel syndrome, appendicitis, diverticulitis, malignancy, hernia, urinary tract infection, torsion, [/ectopic (if female)], perforation, trauma, infectious. Medical Records Attestation: I reviewed the patient's medical records. Home Medications Current Medication List: was personally reviewed by me Laboratory Data Attestation: I reviewed the patient's lab results. Result diagrams: 06/07/20 12:09 06/07/20 12:09 Lab Results 06/06/20 06/06/20 06/06/20 Range/Units 21:52 21:52 21:52 WBC 10.67 (4.8-10.8) K/uL RBC 4.58 L (4.7-6.1) M/uL Hgb 12.6 L (14.0-18.0) g/dL Hct 39.7 L (42-52) % MCV 86.7 (80-100) fL MCH 27.5 (25-34) pg MCHC 31.7 L (32-36) g/dL RDW Std Deviation 45.5 (36.4-46.3) fL RDW Coeff of Linnea 14.5 (11.5-14.5) % Plt Count 195 (130-400) K/uL MPV 12.2 H (7.4-10.4) fL Immature Gran % (Auto) 0.4 % Neut % (Auto) 66.3 % Lymph % (Auto) 21.7 % [place] % (Auto) 6.6 % Eos % (Auto) 4.8 % Baso % (Auto) 0.2 % Neut # (Auto) 7.08 H (1.4-6.5) K/uL Lymph # (Auto) 2.32 (1.2-3.4) K/uL [place] # (Auto) 0.70 H (0.11-0.59) K/uL Eos # (Auto) 0.51 H (0-0.5) K/uL Baso # (Auto) 0.02 (0-0.2) K/uL Immature Gran # (Auto) 0.04 H (0.00-0.02) K/uL PT 10.5 (9.0-12.0) Seconds INR 1.0 (0.9-1.1) APTT 30.3 (21.0-31.0) Seconds PTT Ratio 1.1 Sodium 138 (136-145) mmol/L Potassium 4.1 (3.5-5.1) mmol/L Chloride 104 (98-107) mmol/L Carbon Dioxide 29 (21-32) mmol/L Anion Gap 5.0 (3-11) BUN 24 H (7-18) mg/dl Creatinine 1.16 (0.6-1.4) mg/dl Est Cr Clr Drug Dosing 48.1 ml/min Est GFR ( Amer) 66.2 Est GFR (Non-Af Amer) 57.1 BUN/Creatinine Ratio 20.9 H (10-20) Glucose 140 H (70-99) mg/dl POC Glucose (70-99) mg/dl Lactate (0.4-2.0) mmol/L Calcium 8.8 (8.5-10.1) mg/dl Total Bilirubin 0.4 (0.2-1) mg/dl AST 15 (15-37) U/L ALT 24 (12-78) U/L Alkaline Phosphatase 63 (45-117) U/L Troponin I < 0.015 (0-0.045) ng/ml Total Protein 7.6 (6.4-8.2) gm/dl Albumin 3.8 (3.4-5.0) gm/dl Globulin 3.8 (2.5-4.0) gm/dl Albumin/Globulin Ratio 1.0 (0.9-2) Lipase 84 (73-393) U/L 06/07/20 06/07/20 06/07/20 Range/Units 01:18 02:19 12:09 WBC 12.58 H (4.8-10.8) K/uL RBC 4.55 L (4.7-6.1) M/uL Hgb 12.7 L (14.0-18.0) g/dL Hct 39.8 L (42-52) % MCV 87.5 (80-100) fL MCH 27.9 (25-34) pg MCHC 31.9 L (32-36) g/dL RDW Std Deviation 46.4 H (36.4-46.3) fL RDW Coeff of Linnea 14.5 (11.5-14.5) % Plt Count 235 (130-400) K/uL MPV 12.3 H (7.4-10.4) fL Immature Gran % (Auto) 0.2 % Neut % (Auto) 81.1 % Lymph % (Auto) 12.4 % [place] % (Auto) 6.1 % Eos % (Auto) 0.1 % Baso % (Auto) 0.1 % Neut # (Auto) 10.20 H (1.4-6.5) K/uL Lymph # (Auto) 1.56 (1.2-3.4) K/uL [place] # (Auto) 0.77 H (0.11-0.59) K/uL Eos # (Auto) 0.01 (0-0.5) K/uL Baso # (Auto) 0.01 (0-0.2) K/uL Immature Gran # (Auto) 0.03 H (0.00-0.02) K/uL PT (9.0-12.0) Seconds INR (0.9-1.1) APTT (21.0-31.0) Seconds PTT Ratio Sodium (136-145) mmol/L Potassium (3.5-5.1) mmol/L Chloride (98-107) mmol/L Carbon Dioxide (21-32) mmol/L Anion Gap (3-11) BUN (7-18) mg/dl Creatinine (0.6-1.4) mg/dl Est Cr Clr Drug Dosing ml/min Est GFR ( Amer) Est GFR (Non-Af Amer) BUN/Creatinine Ratio (10-20) Glucose (70-99) mg/dl POC Glucose (70-99) mg/dl Lactate 1.5 (0.4-2.0) mmol/L Calcium (8.5-10.1) mg/dl Total Bilirubin (0.2-1) mg/dl AST (15-37) U/L ALT (12-78) U/L Alkaline Phosphatase (45-117) U/L Troponin I < 0.015 (0-0.045) ng/ml Total Protein (6.4-8.2) gm/dl Albumin (3.4-5.0) gm/dl Globulin (2.5-4.0) gm/dl Albumin/Globulin Ratio (0.9-2) Lipase (73-393) U/L 06/07/20 06/07/20 06/07/20 Range/Units 12:09 19:52 20:43 WBC (4.8-10.8) K/uL RBC (4.7-6.1) M/uL Hgb (14.0-18.0) g/dL Hct (42-52) % MCV (80-100) fL MCH (25-34) pg MCHC (32-36) g/dL RDW Std Deviation (36.4-46.3) fL RDW Coeff of Linnea (11.5-14.5) % Plt Count (130-400) K/uL MPV (7.4-10.4) fL Immature Gran % (Auto) % Neut % (Auto) % Lymph % (Auto) % [place] % (Auto) % Eos % (Auto) % Baso % (Auto) % Neut # (Auto) (1.4-6.5) K/uL Lymph # (Auto) (1.2-3.4) K/uL [place] # (Auto) (0.11-0.59) K/uL Eos # (Auto) (0-0.5) K/uL Baso # (Auto) (0-0.2) K/uL Immature Gran # (Auto) (0.00-0.02) K/uL PT (9.0-12.0) Seconds INR (0.9-1.1) APTT (21.0-31.0) Seconds PTT Ratio Sodium 135 L (136-145) mmol/L Potassium 3.8 (3.5-5.1) mmol/L Chloride 101 (98-107) mmol/L Carbon Dioxide 29 (21-32) mmol/L Anion Gap 6.0 (3-11) BUN 19 H (7-18) mg/dl Creatinine 1.13 (0.6-1.4) mg/dl Est Cr Clr Drug Dosing 49.3 ml/min Est GFR ( Amer) 68.3 Est GFR (Non-Af Amer) 58.9 BUN/Creatinine Ratio 16.8 (10-20) Glucose 175 H (70-99) mg/dl POC Glucose 163 H (70-99) mg/dl Lactate (0.4-2.0) mmol/L Calcium 9.5 (8.5-10.1) mg/dl Total Bilirubin 0.5 (0.2-1) mg/dl AST 14 L (15-37) U/L ALT 20 (12-78) U/L Alkaline Phosphatase 59 (45-117) U/L Troponin I 0.267 H* 0.398 H* (0-0.045) ng/ml Total Protein 7.3 (6.4-8.2) gm/dl Albumin 3.6 (3.4-5.0) gm/dl Globulin 3.7 (2.5-4.0) gm/dl Albumin/Globulin Ratio 1.0 (0.9-2) Lipase (73-393) U/L 06/07/20 Range/Units 21:15 WBC (4.8-10.8) K/uL RBC (4.7-6.1) M/uL Hgb (14.0-18.0) g/dL Hct (42-52) % MCV (80-100) fL MCH (25-34) pg MCHC (32-36) g/dL RDW Std Deviation (36.4-46.3) fL RDW Coeff of Linnea (11.5-14.5) % Plt Count (130-400) K/uL MPV (7.4-10.4) fL Immature Gran % (Auto) % Neut % (Auto) % Lymph % (Auto) % [place] % (Auto) % Eos % (Auto) % Baso % (Auto) % Neut # (Auto) (1.4-6.5) K/uL Lymph # (Auto) (1.2-3.4) K/uL [place] # (Auto) (0.11-0.59) K/uL Eos # (Auto) (0-0.5) K/uL Baso # (Auto) (0-0.2) K/uL Immature Gran # (Auto) (0.00-0.02) K/uL PT (9.0-12.0) Seconds INR (0.9-1.1) APTT 77.9 H* (21.0-31.0) Seconds PTT Ratio 2.8 Sodium (136-145) mmol/L Potassium (3.5-5.1) mmol/L Chloride (98-107) mmol/L Carbon Dioxide (21-32) mmol/L Anion Gap (3-11) BUN (7-18) mg/dl Creatinine (0.6-1.4) mg/dl Est Cr Clr Drug Dosing ml/min Est GFR ( Amer) Est GFR (Non-Af Amer) BUN/Creatinine Ratio (10-20) Glucose (70-99) mg/dl POC Glucose (70-99) mg/dl Lactate (0.4-2.0) mmol/L Calcium (8.5-10.1) mg/dl Total Bilirubin (0.2-1) mg/dl AST (15-37) U/L ALT (12-78) U/L Alkaline Phosphatase (45-117) U/L Troponin I (0-0.045) ng/ml Total Protein (6.4-8.2) gm/dl Albumin (3.4-5.0) gm/dl Globulin (2.5-4.0) gm/dl Albumin/Globulin Ratio (0.9-2) Lipase (73-393) U/L Imaging Data My Impression: X-ray: I interpreted the following studies. Chest: A single view study of the chest was reviewed and was negative for cardiomegaly, focal infiltrate, effusion, pulmonary edema, or wide mediastinum. Unchanged compared to prior. Radiologist's Impression: Ultrasound right upper quadrant: Hepatomegaly with coarse echotexture and multiple echogenic foci throughout the liver which may represent calcifications, which can indicate sequelae of prior granulomatous disease. The gallbladder contains sludge but no stones and there is no gallbladder wall thickening or pericholecystic fluid negative sonographic Griffith sign. Common bile duct is nondilated. No hydronephrosis of the right kidney. Radiologist: America Cramer M.D. CT abdomen and pelvis with contrast: There is a hiatal hernia with a large portion of the stomach located within the thorax, as seen on prior exam from 12/10/2015. Stomach is distended from a recent meal. No small bowel obstruction or bowel thickening is seen. No free fluid or free air. The appendix is not clearly visualized. Numerous foci of hypoattenuation scattered throughout the liver are too small to characterize. Many of these were present on the previous exam and may represent small cyst. No hydronephrosis or evidence of acute cholecystitis. Pancreas, spleen and adrenal glands are unremarkable. Stomach is distended from a recent meal. No small bowel obstruction or bowel thickening is seen. No free fluid or free air. The appendix is not clearly visualized. Numerous foci of hypoattenuation scattered throughout the liver are too small to characterize. Many of these were present on the previous exam and may represent small cyst. No hydronephrosis or evidence of acute cholecystitis. Pancreas, spleen and adrenal glands are unremarkable. Atherosclerotic calcifications of the aortoiliac arteries. Radiologist: America Cramer MD ECG Data Attestation: I personally reviewed and interpreted this ECG as follows: Indication: + abdominal pain Rate (beats per minute): 72 Rhythm: + normal sinus ECG Intervals/blocks: + First degree AV block, + Normal QRS and + Normal QT ECG Gomer: + Normal ECG ST segments: + Nonspecific ST abnormalities ECG Findings: + PVCs Blood Pressure Blood Pressure Findings: Elevated blood pressure MDM Narrative This is an elderly male presents the emergency department with concern for indigestion following a large meal this evening that is different from his usual diet. Patient stated that his chest pain resolved by the time of arrival here and he only had some lingering abdominal "discomfort". No nausea, no trouble breathing, no fevers or chills. Patient initially had labs drawn and sent, x- ray performed, we discussed imaging of his gallbladder which did reveal sludge however no evidence of cholecystitis. We did attempt a p.o. challenge which made the patient feel worse. Patient then given additional medication and sent for CT imaging. While patient's exam remained the same with slight discomfort with palpation of the central abdomen and no other evolving symptoms, patient could not tolerate p.o. Patient did have one episode where he became hypoxic into the 80s on room air and oxygen was applied. However, I was able to wean the patient down to room air with no further dips in his oxygen, is unclear if this was an error or related to mucous plugging. Patient denied any shortness of breath or URI symptoms. Chest x-ray did not reveal any acute pulmonary pathology. Troponins were negative x2. I do not suspect cardiac etiology of the patient's abdominal pain. Patient was hypertensive here, although he did not get his evening dose of blood pressure medication prior to bed. I do not suspect hypertensive urgency/emergency. CT imaging was reassuring. Given persistent symptoms and patient and family comfortable going home as he could not tolerate p.o., case was discussed with hospitalist for additional evaluation. Pt seen during a time of high acuity and national emergency pandemic while wearing PPE. Patient has a family history of CAD. Patient was first seen and observation began at 2302 and was necessary in order to determine rule out cardiac etiology, continue to medicate and monitor for improvement. Upon re-evaluation, 8 hours of observation revealed that the patient could be admitted. Discharge time at 0700. Impression & Plan Abdominal pain, Nausea Discharge Plan Visit Data Chief Complaint: Chest Pain Stated Complaint: CHEST PAIN ED Provider: Johanna Suazo Discharge Problem: Abdominal pain, Nausea Patient Disposition: Admitted As Inpatient Condition: Good Discharge Instructions Interventions: ED Discharge Assessment Last Done: 06/07/20 16:12 Discharge Problem: Abdominal pain Qualifiers: Abdominal location: unspecified location Qualified Code(s): R10.9 - Unspecified abdominal pain
[2020-06-06] MEDS: SODIUM CHLORIDE 0.9% 500 ML IV SCH (23:46)
[2020-06-07] MEDS ORDERED: glipiZIDE 5 MG TAB PO ONE (02:57)
[2020-06-07] MEDS ORDERED: DICYCLOMINE HCL 10 MG CAP PO ONE (02:57)
[2020-06-07] MEDS ORDERED: FAMOTIDINE 20MG/5ML IV PUSH IV STA (03:00)
[2020-06-07] MEDS ORDERED: ONDANSETRON INJ 2 MG/ML 2 ML VIAL IV STA ×2 (03:47→14:17)
[2020-06-07] MEDS ORDERED: IOVERSOL 100ml IV ONE (04:42)
--- NOTE | 2020-06-07 07:24 | CT Scan Report ---
CT abd pelvis IV con only CLINICAL HISTORY: abd pain, nausea COMPARISON STUDY: November 2015 TECHNIQUE: The patient was scanned in a dynamic helical fashion during intravenous administration of 93 cc of Optiray 320 A dose lowering technique was utilized adhering to the principles of ALARA. CT DOSE: 600.40 mGy.cm FINDINGS: Lower chest: There is a large hiatal hernia. There is basilar atelectasis. Liver: There are multiple subcentimeter hepatic hypodensities similar to the prior study, likely repr esenting cysts or biliary hamartomas. Gallbladder: Unremarkable. Spleen: Normal in size and attenuation. Pancreas: Unremarkable. Adrenal glands: Unremarkable. Kidneys: There is symmetric renal cortical enhancement. The kidneys are normal in size without hydron ephrosis. Bowel: There are no transition zones indicate bowel obstruction. There is colonic diverticulosis. The re is no evidence of acute diverticulitis. The appendix was not visualized with certainty, but there are no findings to indicate acute appendicitis Peritoneum: There is no intraperitoneal free air or abdominal ascites. Vasculature: The abdominal aorta is normal in course and caliber. Adenopathy: None. Pelvic viscera: There is prostatomegaly. There is bladder wall thickening. Skeletal structures: There are few nonspecific lytic foci within the iliac bones, similar to the prio r study IMPRESSION: 1. No evidence of bowel obstruction. No evidence of free air 2. Large hiatal hernia. 3. No evidence of acute appendicitis. No evidence of acute diverticulitis. ACT 112: Negative or not required by law. Electronically signed by: Solitario Soni M.D. 06/07/2020 7:22 AM
--- NOTE | 2020-06-07 07:27 | XRay Report ---
SINGLE VIEW CHEST CLINICAL HISTORY: Atypical chest pain. FINDINGS: An AP, portable, upright chest radiograph is compared to study dated 12/10/2015. The examina tion is degraded by portable technique and apical lordotic positioning. There is a large hiatal herni a. The heart is enlarged noting atherosclerotic calcification of the thoracic aorta. The pulmonary va sculature is noncongested. There is mild elevation of the right hemidiaphragm. Chronic interstitial t hickening is similar to previous. There is bibasilar scarring/atelectasis. No airspace consolidation or large pleural effusion is identified. No pneumothorax is seen. The skeletal structures are osteope chris. The bony thorax is grossly intact. Arthritic change is noted in the shoulders and thoracic spine . IMPRESSION: 1. Mild cardiac enlargement with no acute cardiopulmonary abnormality. 2. Hiatal hernia. ACT 112: Negative or not required by law. Electronically signed by: Herberth Streeter M.D. 06/07/2020 7:25 AM
[2020-06-07] MEDS ORDERED: PANTOprazole 40 MG in SYRINGE 0 ML IV ONE (07:29)
--- NOTE | 2020-06-07 07:50 | Ultrasound Report ---
ULTRASOUND RIGHT UPPER QUADRANT ABDOMEN CLINICAL HISTORY: Postprandial abdominal pain. COMPARISON STUDY: Abdominal CT dated 12/10/2015. TECHNIQUE: Real-time, grayscale, and color flow sonography of the right upper quadrant of the abdomen was performed. Images are reviewed in the transverse and longitudinal planes. FINDINGS: Liver: The liver is top normal in size and heterogeneous in echotexture. Numerous tiny cystic foci me asure up to 5 mm. There is no intrahepatic biliary ductal dilatation. The main portal vein is patent. Gallbladder: The gallbladder is normal in appearance. No gallstones are identified. There is no gallb ladder wall thickening or pericholecystic fluid. A sonographic Griffith's sign is reportedly absent. Th e common bile duct measures up to 0.4 cm in diameter. Pancreas: Not visualized due to overlying bowel gas. Right kidney: Survey images of the right kidney demonstrate mild cortical atrophy. Echotexture is nor mal. There is no hydronephrosis. Ascites: None. IMPRESSION: 1. No acute sonographic abnormality is seen in the right upper quadrant. No gallstones are identified . 2. Heterogeneous liver with numerous tiny cystic foci which likely represent cysts or biliary hamarto mas when correlated with previous abdominal CT scans. 3. Nonvisualization of the pancreas. ACT 112: Negative or not required by law. Electronically signed by: Herberth Streeter M.D. 06/07/2020 7:49 AM
[2020-06-07] MEDS ORDERED: MoRPHine SULFATE 2 MG/ML CARP IV PRN (08:33)
[2020-06-07] MEDS ORDERED: ONDANSETRON INJ 2 MG/ML 2 ML VIAL IV PRN (08:33)
[2020-06-07] MEDS: SODIUM CHLORIDE 0.9% 500 ML IV SCH ×5 (08:41→21:04)
[2020-06-07] MEDS: INDAPAMIDE 1.25 MG TAB PO SCH (09:34)
[2020-06-07] MEDS: LOSARTAN POTASSIUM 50 MG TAB PO SCH (09:34)
[2020-06-07] MEDS: DICYCLOMINE HCL 10 MG CAP PO SCH (09:34)
[2020-06-07] MEDS: ENOXAPARIN INJ 40 MG/0.4 ML SYR SQ SCH (09:36)
--- NOTE | 2020-06-07 09:43 | History & Physical Report ---
Date of Service June 07, 2020 Assessment & Plan (1) Chest pain: patient initially had epigastric pain, nausea and diarrhea last night after heavy dinner at the [employer] he then had pain radiating up to his chest, had some diaphoresis he says he never gets chest pain initial EKG without ischemic changes two troponin were negative, but third set up to 0.2 patient still with epigastric pain and nausea will treat as possible ACS, possible NSTEMI given chest pain/pressure and rise i n troponin repeat troponin at 1999 this evening start on heparin drip, aspirin, statin will give Imdur 30mg since his BP is 150's systolic, HR is too low for beta olayinka check echocardiogram consult [facility] [place], he has seen Dr. Wheatley in the past (2) Epigastric pain: (3) Diabetes mellitus: diabetic diet Novolog SS monitor for hypoglycemia (4) Hiatal hernia: unlikely cause of epigastric pain given his elevated troponin (5) Hypercholesterolemia: continue Zocor, may consider changing to a higher intensity status (6) Hypertension: continue Losartii (7) Hypothyroidism: Admission and Anticipated Discharge Date Admission Date: June 07, 2020 History of Present Illness Chief Complaint: I had chest pain Primary Care Provider: Yuri Astudillo MD 84 yo male with remote history of CAD with stent placed in 1996 who presented to the ED early this morning due to epigastric pain and chest pain. He and his were out to eat last night at the [employer]. He said they were eating food that was very rich and he normally does not eat foods that are like that. He started to feel uneasy in his stomach when they got home then had epigastric pain. He experienced some nausea as well. He then had a large loose BM but that did not help his pain. He said the pain radiated up to his chest, it was a pressure like pain. He had diaphoresis. He tried to take some Tums but that did nothing to improve pain. He was not able to rest and started to get worried about his heart so he came to the ED. By the time he was in the ED he said the pain had returned to his epigastric region. At it's worse it was a 7 out of 10. Nothing made it better or worse. EKG showed no ischemic changes. Initial two troponin in the ED were negative. BMP and CBC unremarkable. CT abdomen/pelvis showed a hiatal hernia but nothing else. RUQ US shows no gall stones or cholecystitis. Patient placed on observation, his third troponin at noon trended up to 0.2 Revisited patient and he was still having epigastric pain. Got some relief with Imdur and Nitro SL x 2. Allergies Allergy/AdvReac Type Severity Reaction Status Date / Time lisinopril Allergy Severe FACE SWELLS Verified 06/07/20 00:17 Home Medications Home Medications Medication Instructions Recorded Confirmed Type ketoconazole 1 applic TOPICAL BID PRN 04/28/18 06/07/20 History multivitamin 1 cap PO DAILY 02/28/19 06/07/20 History metformin 500 mg tablet,extended 1,000 mg PO BID #360 tab 07/04/19 06/07/20 Rx release 24 hr indapamide 1.25 mg tablet 1.25 mg PO QAM #90 tab 10/17/19 06/07/20 Rx levothyroxine 150 mcg tablet 150 mcg PO QAM #90 tab 10/17/19 06/07/20 Rx omeprazole 20 mg capsule,delayed 20 mg PO QAM #90 cap 10/17/19 06/07/20 Rx release allopurinol 300 mg tablet 300 mg PO QAM #90 tab 11/02/19 06/07/20 Rx nitroglycerin 0.4 mg sublingual 0.4 mg SUBLINGUAL UD PRN #25 tab 11/24/19 06/07/20 Rx tablet pindolol 5 mg tablet 5 mg PO BID tab 01/26/20 06/07/20 History losartan 100 mg tablet 100 mg PO DAILY #90 tab 02/09/20 06/07/20 Rx dicyclomine 10 mg capsule 10 mg PO QAM #90 cap 02/13/20 06/07/20 Rx glipizide 5 mg tablet, extended 5 mg PO BID 90 Days #180 tab 04/05/20 06/07/20 Rx release 24 hr aspirin 81 mg PO HS 06/07/20 06/07/20 History simvastatin [Zocor] 40 mg PO HS 06/07/20 06/07/20 History Past Med/Surg History Medical History Acid reflux Angioedema CAD (coronary artery disease) Coronary artery disease, occlusive Diabetes mellitus Dysphagia Gout, joint Hearing loss Hiatal hernia High cholesterol Hypercholesterolemia Hypertension Hypertension Hypothyroidism Type 2 diabetes mellitus Vertigo Surgical History History of cardiac cath "ANGIOPLASTY" X2 - 1994, 1996 1996 - STENT X 1 History of cataract surgery History of colonoscopy History of heart artery stent X 1 - 1996 History of left knee surgery X3 History of shoulder surgery RIGHT/DISLOCATED Family History (Updated 06/07/20 @ 21:55 by Dereck Stevens DO) Other Heart disease Hypertension Social History Smoking Status: Former smoker Cigarettes Per Day: 45 YEARS AGO; Second Hand Exposure: No; Hx Alcohol Use: Yes Alcohol type: wine Hx Substance Use: No Preferred Language: Romanian Communication Ability: Effective [employer] Required: No Beliefs That Will Affect Care: None marital status: Current Living Situation: Spouse Feels Safe at Home: Yes Assistive Devices: Denture - Upper, Denture - Lower and Hearing Aid - Bilateral Review of Systems Review of Systems: All systems reviewed & are unremarkable except as noted in Subjective Physical Exam Constitutional: WD/WN, vitals as above Eyes: PERRL, conjunctivae normal, anicteric sclerae ENMT: external ear and nose normal, oropharynx normal Neck: trachea midline, no thyromegaly Respiratory: normal respiratory effort, lungs clear to auscultation Cardiovascular: RRR, no murmur, no edema Gastrointestinal (Abdomen): normal bowel sounds, soft, nontender, no hepatosplenomegaly Musculoskeletal: no cyanosis or clubbing, extremities motor strength 5/5 Skin: no rashes, warm and dry Neurologic: patellar DTR's 2+ bilat, sensation intact and PERRL, EOMI, accommodation nl, no face palsy, no dysarthria Psychiatric: A+Ox3, euthymic affect Lymphatic: no cervical or axillary lymphadenopathy Results & Data Results & Data ([facility]) Vital Signs (Past 12 Hours) Vital Signs Pulse Resp BP Pulse Ox 06/07/20 08:00 83 24 185/95 H 95 06/07/20 07:30 81 13 168/86 H 90 06/07/20 07:00 78 20 178/91 H 91 06/07/20 06:30 81 21 173/96 H 95 06/07/20 06:00 76 16 174/86 H 94 06/07/20 05:30 72 19 174/92 H 93 06/07/20 05:18 86 L 06/07/20 05:00 83 16 172/91 H 93 06/07/20 04:00 78 18 161/89 H 92 06/07/20 03:30 81 16 193/99 H 93 06/07/20 03:00 82 23 174/95 H 95 06/07/20 02:30 69 18 186/80 H 90 06/07/20 02:00 77 17 173/83 H 91 06/07/20 01:30 67 20 174/76 H 92 06/07/20 01:21 65 20 172/77 H 92 06/07/20 00:30 67 20 169/104 H 93 06/07/20 00:00 69 23 160/78 H 91 06/06/20 23:30 65 18 187/87 H 92 06/06/20 23:00 66 22 173/90 H 93 06/06/20 22:47 67 17 96 06/06/20 22:45 65 17 181/83 H 98 Laboratory Results Laboratory Results - last 24 hr 06/06/20 06/06/20 06/06/20 21:52 21:52 21:52 WBC 10.67 RBC 4.58 L Hgb 12.6 L Hct 39.7 L MCV 86.7 MCH 27.5 MCHC 31.7 L RDW Std Deviation 45.5 RDW Coeff of Linnea 14.5 Plt Count 195 MPV 12.2 H Immature Gran % (Auto) 0.4 Neut % (Auto) 66.3 Lymph % (Auto) 21.7 Leon % (Auto) 6.6 Eos % (Auto) 4.8 Baso % (Auto) 0.2 Neut # (Auto) 7.08 H Lymph # (Auto) 2.32 Leon # (Auto) 0.70 H Eos # (Auto) 0.51 H Baso # (Auto) 0.02 Immature Gran # (Auto) 0.04 H PT 10.5 INR 1.0 APTT 30.3 PTT Ratio 1.1 Sodium 138 Potassium 4.1 Chloride 104 Carbon Dioxide 29 Anion Gap 5.0 BUN 24 H Creatinine 1.16 Est Cr Clr Drug Dosing 48.1 Est GFR ( Amer) 66.2 Est GFR (Non-Af Amer) 57.1 BUN/Creatinine Ratio 20.9 H Glucose 140 H POC Glucose Lactate Calcium 8.8 Total Bilirubin 0.4 AST 15 ALT 24 Alkaline Phosphatase 63 Troponin I < 0.015 Total Protein 7.6 Albumin 3.8 Globulin 3.8 Albumin/Globulin Ratio 1.0 Lipase 84 06/07/20 06/07/20 06/07/20 01:18 02:19 12:09 WBC 12.58 H RBC 4.55 L Hgb 12.7 L Hct 39.8 L MCV 87.5 MCH 27.9 MCHC 31.9 L RDW Std Deviation 46.4 H RDW Coeff of Linnea 14.5 Plt Count 235 MPV 12.3 H Immature Gran % (Auto) 0.2 Neut % (Auto) 81.1 Lymph % (Auto) 12.4 Leon % (Auto) 6.1 Eos % (Auto) 0.1 Baso % (Auto) 0.1 Neut # (Auto) 10.20 H Lymph # (Auto) 1.56 Leon # (Auto) 0.77 H Eos # (Auto) 0.01 Baso # (Auto) 0.01 Immature Gran # (Auto) 0.03 H PT INR APTT PTT Ratio Sodium Potassium Chloride Carbon Dioxide Anion Gap BUN Creatinine Est Cr Clr Drug Dosing Est GFR ( Amer) Est GFR (Non-Af Amer) BUN/Creatinine Ratio Glucose POC Glucose Lactate 1.5 Calcium Total Bilirubin AST ALT Alkaline Phosphatase Troponin I < 0.015 Total Protein Albumin Globulin Albumin/Globulin Ratio Lipase 06/07/20 06/07/20 06/07/20 12:09 19:52 20:43 WBC RBC Hgb Hct MCV MCH MCHC RDW Std Deviation RDW Coeff of Linnea Plt Count MPV Immature Gran % (Auto) Neut % (Auto) Lymph % (Auto) Leon % (Auto) Eos % (Auto) Baso % (Auto) Neut # (Auto) Lymph # (Auto) Leon # (Auto) Eos # (Auto) Baso # (Auto) Immature Gran # (Auto) PT INR APTT PTT Ratio Sodium 135 L Potassium 3.8 Chloride 101 Carbon Dioxide 29 Anion Gap 6.0 BUN 19 H Creatinine 1.13 Est Cr Clr Drug Dosing 49.3 Est GFR ( Amer) 68.3 Est GFR (Non-Af Amer) 58.9 BUN/Creatinine Ratio 16.8 Glucose 175 H POC Glucose 163 H Lactate Calcium 9.5 Total Bilirubin 0.5 AST 14 L ALT 20 Alkaline Phosphatase 59 Troponin I 0.267 H* 0.398 H* Total Protein 7.3 Albumin 3.6 Globulin 3.7 Albumin/Globulin Ratio 1.0 Lipase 06/07/20 21:15 WBC RBC Hgb Hct MCV MCH MCHC RDW Std Deviation RDW Coeff of Linnea Plt Count MPV Immature Gran % (Auto) Neut % (Auto) Lymph % (Auto) Leon % (Auto) Eos % (Auto) Baso % (Auto) Neut # (Auto) Lymph # (Auto) Leon # (Auto) Eos # (Auto) Baso # (Auto) Immature Gran # (Auto) PT INR APTT 77.9 H* PTT Ratio 2.8 Sodium Potassium Chloride Carbon Dioxide Anion Gap BUN Creatinine Est Cr Clr Drug Dosing Est GFR ( Amer) Est GFR (Non-Af Amer) BUN/Creatinine Ratio Glucose POC Glucose Lactate Calcium Total Bilirubin AST ALT Alkaline Phosphatase Troponin I Total Protein Albumin Globulin Albumin/Globulin Ratio Lipase Diagnostic Findings CT abdomen/pelvis IMPRESSION: 1. No evidence of bowel obstruction. No evidence of free air 2. Large hiatal hernia. 3. No evidence of acute appendicitis. No evidence of acute diverticulitis. RUQ US IMPRESSION: 1. No acute sonographic abnormality is seen in the right upper quadrant. No gallstones are identified. 2. Heterogeneous liver with numerous tiny cystic foci which likely represent cysts or biliary hamartomas when correlated with previous abdominal CT scans. 3. Nonvisualization of the pancreas. ECG Indication: chest pain Rhythm: normal sinus Findings: + 1st degree AV block Code Status & VTE Plan VTE Prophylaxis Plan VTE Prophylaxis will be ordered: Yes PG Care Time/CCT Total # of Minutes Spent Total Time Spent: 50 Total Time Spent with Patient: Total time spent is greater than 50% in coordination of care (as documented) at patient's floor/unit and/or counseling patient: visited with patient three times today updated his at the bedside discussed the case with Dr. Ward Coding Level of Care Code 42473 Initial Inpt Care Lvl 3 Diagnoses Chest pain R07.9 Epigastric pain R10.13 Diabetes mellitus E11.9 Hiatal hernia K44.9 Hypercholesterolemia E78.00 Hypertension I10 Hypothyroidism E03.9
--- NOTE | 2020-06-07 10:48 | Electrocardiogram Report ---
Test Reason : Blood Pressure : / mmHG Vent. Rate : 072 BPM Atrial Rate : 072 BPM P-R Int : 216 ms QRS Dur : 100 ms QT Int : 408 ms P-R-T Axes : 051 025 058 degrees QTc Int : 446 ms Sinus rhythm with 1st degree A-V block with frequent , and consecutive Premature ventricular complexe s Low voltage QRS Septal infarct , age undetermined Abnormal ECG When compared with ECG of 28-APR-2018 15:45, Nonspecific T wave abnormality no longer evident in Inferior leads Consecutive Premature ventricular complexes are now Present Confirmed by Chris Mcknight ([id number]) on 06/07/2020 10:47:40 AM Referred By: REFERRED SELF Confirmed By:Chris Mcknight
[2020-06-07 12:31] LABS: Basophils # (auto) 0.01 K/uL (0-0.2); Basophils % (auto) 0.1 %; Eosinophils # (auto) 0.01 K/uL (0-0.5); Eosinophils % (auto) 0.1 %; Hematocrit (blood only) 39.8 % (42-52); Hemoglobin 12.7 g/dL (14.0-18.0); Immature Granulocytes # (auto) 0.03 K/uL (0.00-0.02); Immature Granulocytes % (auto) 0.2 %; Lymphocytes # (auto) 1.56 K/uL (1.2-3.4); Lymphocytes % (auto) 12.4 %; Mean Corpuscular Hemoglobin 27.9 pg (25-34); Mean Corpuscular Hgb Conc 31.9 g/dL (32-36); Mean Corpuscular Volume 87.5 fL (80-100); Mean Platelet Volume 12.3 fL (7.4-10.4); Monocytes # (auto) 0.77 K/uL (0.11-0.59); Monocytes % (auto) 6.1 %; Neutrophils % (auto) 81.1 %; Platelet Count 235 K/uL (130-400); RDW Coefficient of Variation 14.5 % (11.5-14.5); RDW Standard Deviation 46.4 fL (36.4-46.3); Red Blood Count 4.55 M/uL (4.7-6.1); White Blood Count 12.58 K/uL (4.8-10.8)
[2020-06-07 12:52] LABS: Albumin Level 3.6 gm/dl (3.4-5.0); BUN Creatinine Ratio 16.8 (10-20); Calcium 9.5 mg/dl (8.5-10.1); Creatinine Clr Calc Pharmacy 49.3 ml/min; Est GFR (African American) 68.3; Est GFR (Non-African American) 58.9; Potassium 3.8 mmol/L (3.5-5.1)
[2020-06-07 13:01] LABS: Bilirubin,Total 0.5 mg/dl (0.2-1); Globulin 3.7 gm/dl (2.5-4.0); Total Protein 7.3 gm/dl (6.4-8.2); Troponin I 0.267 ng/ml (0-0.045)
[2020-06-07] MEDS ORDERED: ISOSORBIDE MONO EXTENDED REL 30 MG TABCR PO ONE (14:17)
[2020-06-07] MEDS: NITROGLYCERIN SL 0.4 MG/TAB TAB SL PRN ×2 (15:08→15:42)
[2020-06-07] MEDS: HEPARIN SODIUM/DEXTROSE 25,000 UNITS/500 ML BAG IV SCH (15:32)
[2020-06-07] MEDS ORDERED: [UNRECOGNIZED DRUG - REMARK] SCH (16:00)
--- NOTE | 2020-06-07 16:01 | XCELERA ---
[id number]
--- NOTE | 2020-06-07 16:58 | Cardiology Consultation ---
Date of Consultation June 07, 2020 Assessment & Plan (1) Chest pain: His chest discomfort is worrisome, however it is associated with GI discomfort and the character of it is more consistent with GI than cardiac. Especially the duration and it occurring after eating, but of course that does not exclude myocardial ischemia. He did have 2 cardiac enzymes last evening in the emergency room which were negative, the one done this morning was minimally abnormal and another one is pending. Having about 16 or 18 hours of chest discomfort and only having minimal troponin elevation is suggestive that this is not a primary cardiac etiology, however his echocardiogram is abnormal as well but his electrocardiogram does not show acute changes. My recommendation would be to continue to trend enzymes as you are doing, keep him n.p.o. tonight and we will need to consider whether to do stress testing tomorrow or catheterization. (2) Coronary artery disease, occlusive: He has known coronary artery disease however his last catheterization was 1994 and his last stress test was in 2011 (a nuclear study) with normal perfusion. I do not see an interim stress test or echocardiogram. He certainly could have had progression, a stress test may well be abnormal, but still he has very recently been golfing and being very active and just finding ischemia without symptoms may not justify intervention. We will proceed as outlined above, in the meantime we should plan on maintaining risk factor modification with aspirin and statin therapy. History of Present Illness Reason for Consultation: Chest and abdominal discomfort Attending Physician: Dereck Stevens, DO History of Present Illness This is an 84-year-old gentleman who has a history of hypothyroidism, hypercholesterolemia and longstanding [id number] diabetes mellitus. He also has a history of known coronary artery disease as well as a history of GERD. I believe he initially presented with wheezing while shoveling snow, by his recollection this was in 1994 although I have not seen records. He had no chest discomfort at the time. He went on to have a catheterization where he had stent placement. He tells me he also had a catheterization 1996. This was performed at [place]. I do not believe he is followed up in our office, at least with our recent records, although he did have stress tests periodically but none recently. He is very active, he has been golfing and having no difficulty with it. He was golfing as recently as several days ago with no exertional symptoms. He went out to dinner at [employer], perhaps ate more than he should have, on June 06, 2020. He felt poorly with epigastric and chest discomfort and came into the emergency room. He felt poorly all night long, he tells me that his symptoms were only relieved this afternoon after eating present for nearly 24 hours but he has got a combination of GI and cardiac medications so is hard to tell what relieved his symptoms. An echocardiogram done today did show wall motion abnormalities, he tells me he never had a heart attack in the past although I do not believe he has had an echocardiogram for some time. This time my evaluation in his hospital room he was pain-free although he had no appetite and still was not feeling quite normal. He did not have any GI or cardiac discomfort remaining. He has not been having shortness of breath with this and no lightheadedness or dizziness. Allergies Allergy/AdvReac Type Severity Reaction Status Date / Time lisinopril Allergy Severe FACE SWELLS Verified 06/07/20 00:17 Home Medications Home Medications Medication Instructions Recorded Confirmed Type ketoconazole 1 applic TOPICAL BID PRN 04/28/18 06/07/20 History multivitamin 1 cap PO DAILY 02/28/19 06/07/20 History metformin 500 mg tablet,extended 1,000 mg PO BID #360 tab 07/04/19 06/07/20 Rx release 24 hr indapamide 1.25 mg tablet 1.25 mg PO QAM #90 tab 10/17/19 06/07/20 Rx levothyroxine 150 mcg tablet 150 mcg PO QAM #90 tab 10/17/19 06/07/20 Rx omeprazole 20 mg capsule,delayed 20 mg PO QAM #90 cap 10/17/19 06/07/20 Rx release allopurinol 300 mg tablet 300 mg PO QAM #90 tab 11/02/19 06/07/20 Rx nitroglycerin 0.4 mg sublingual 0.4 mg SUBLINGUAL UD PRN #25 tab 11/24/19 06/07/20 Rx tablet pindolol 5 mg tablet 5 mg PO BID tab 01/26/20 06/07/20 History losartan 100 mg tablet 100 mg PO DAILY #90 tab 02/09/20 06/07/20 Rx dicyclomine 10 mg capsule 10 mg PO QAM #90 cap 02/13/20 06/07/20 Rx glipizide 5 mg tablet, extended 5 mg PO BID 90 Days #180 tab 04/05/20 06/07/20 Rx release 24 hr aspirin 81 mg PO HS 06/07/20 06/07/20 History simvastatin [Zocor] 40 mg PO HS 06/07/20 06/07/20 History Patient History Medical History Acid reflux Angioedema CAD (coronary artery disease) Coronary artery disease, occlusive Diabetes mellitus Dysphagia Gout, joint Hearing loss Hiatal hernia High cholesterol Hypercholesterolemia Hypertension Hypertension Hypothyroidism Type 2 diabetes mellitus Vertigo Surgical History History of cardiac cath "ANGIOPLASTY" X2 - 1994, 1996 1996 - STENT X 1 History of cataract surgery History of colonoscopy History of heart artery stent X 1 - 1996 History of left knee surgery X3 History of shoulder surgery RIGHT/DISLOCATED Social History Smoking Status: Former smoker Cigarettes Per Day: 45 YEARS AGO; Second Hand Exposure: No; Hx Alcohol Use: Yes Alcohol type: wine Hx Substance Use: No Preferred Language: Belarusian Communication Ability: Effective [employer] Required: No Beliefs That Will Affect Care: None marital status: Current Living Situation: Spouse Feels Safe at Home: Yes Assistive Devices: Denture - Upper, Denture - Lower, Glasses and Hearing Aid - Bilateral Review of Systems Review of Systems: All systems reviewed & are unremarkable except as noted in HPI & below Physical Exam Physical Exam: Constitutional: Alert, cooperative and in no distress. HEENT: Unremarkable Neck: No jugular venous distention, carotid pulses are normal and equal bilaterally without bruits. Pulmonary: Clear to auscultation bilaterally. Cardiac: Regular rhythm with no murmur, gallop or rub. Abdomen: Soft, nontender with normal bowel sounds. Extremities: No edema. Distal pulses intact. Neurologic: No focal findings. Gait is steady. Skin: No rash, ecchymoses or petechiae. Results & Data ([facility]) Vital Signs (Past 12 Hours) Vital Signs Temp Pulse Pulse Resp BP BP Pulse Ox 06/07/20 16:25 37.3 C 67 20 124/65 93 06/07/20 15:46 63 17 120/61 93 06/07/20 15:42 65 17 142/64 H 93 06/07/20 15:40 66 16 93 06/07/20 15:31 92 06/07/20 15:30 65 20 142/67 H 92 06/07/20 15:20 65 17 92 06/07/20 15:12 154/77 H 06/07/20 15:11 69 20 154/77 H 95 06/07/20 15:10 62 17 96 06/07/20 15:03 67 17 97 06/07/20 15:01 64 19 182/75 H 97 06/07/20 15:00 62 14 168/120 H 97 06/07/20 14:50 68 9 L 96 06/07/20 14:40 65 12 95 06/07/20 14:31 68 4 L 183/92 H 94 06/07/20 14:30 68 11 L 94 06/07/20 14:20 75 15 93 06/07/20 14:10 70 18 95 06/07/20 14:00 68 19 158/71 H 96 06/07/20 13:50 67 19 92 06/07/20 13:40 69 21 95 06/07/20 13:39 96 06/07/20 13:30 65 18 153/75 H 97 06/07/20 13:20 66 18 93 06/07/20 13:10 70 26 H 97 06/07/20 13:00 72 17 174/78 H 95 06/07/20 12:50 62 20 96 06/07/20 12:40 64 18 94 06/07/20 12:37 63 15 94 06/07/20 12:36 63 17 151/81 H 95 06/07/20 12:30 153/80 H 06/07/20 12:00 145/73 H 06/07/20 11:30 131/65 92 06/07/20 11:20 93 06/07/20 11:10 93 06/07/20 11:00 130/75 92 06/07/20 10:50 92 06/07/20 10:40 95 06/07/20 10:36 182/92 H 98 06/07/20 10:35 96 06/07/20 10:20 79 18 06/07/20 10:15 06/07/20 10:10 81 15 95 06/07/20 10:00 18 149/76 H 06/07/20 09:48 75 20 158/79 H 95 06/07/20 09:30 73 19 158/79 H 95 06/07/20 09:00 63 18 161/80 H 93 06/07/20 08:30 74 14 181/98 H 96 06/07/20 08:00 83 24 185/95 H 95 06/07/20 07:30 81 13 168/86 H 90 06/07/20 07:00 78 20 178/91 H 91 06/07/20 06:30 81 21 173/96 H 95 06/07/20 06:00 76 16 174/86 H 94 06/07/20 05:30 72 19 174/92 H 93 06/07/20 05:18 86 L 06/07/20 05:00 83 16 172/91 H 93 Pulse Ox 06/07/20 16:25 06/07/20 15:46 06/07/20 15:42 06/07/20 15:40 06/07/20 15:31 06/07/20 15:30 06/07/20 15:20 06/07/20 15:12 06/07/20 15:11 06/07/20 15:10 06/07/20 15:03 06/07/20 15:01 06/07/20 15:00 06/07/20 14:50 06/07/20 14:40 06/07/20 14:31 06/07/20 14:30 06/07/20 14:20 06/07/20 14:10 06/07/20 14:00 06/07/20 13:50 06/07/20 13:40 06/07/20 13:39 06/07/20 13:30 06/07/20 13:20 06/07/20 13:10 06/07/20 13:00 06/07/20 12:50 06/07/20 12:40 06/07/20 12:37 06/07/20 12:36 06/07/20 12:30 06/07/20 12:00 95 06/07/20 11:30 06/07/20 11:20 06/07/20 11:10 06/07/20 11:00 96 06/07/20 10:50 06/07/20 10:40 06/07/20 10:36 06/07/20 10:35 06/07/20 10:20 06/07/20 10:15 95 06/07/20 10:10 06/07/20 10:00 06/07/20 09:48 06/07/20 09:30 06/07/20 09:00 06/07/20 08:30 06/07/20 08:00 06/07/20 07:30 06/07/20 07:00 06/07/20 06:30 06/07/20 06:00 06/07/20 05:30 06/07/20 05:18 06/07/20 05:00 Laboratory Results Cardiac Enzymes 06/06/20 06/07/20 06/07/20 Range/Units 21:52 01:18 12:09 AST 15 14 L (15-37) U/L Troponin I < 0.015 < 0.015 0.267 H* (0-0.045) ng/ml Coagulation 06/06/20 Range/Units 21:52 PT 10.5 (9.0-12.0) Seconds APTT 30.3 (21.0-31.0) Seconds CBC 06/06/20 06/07/20 Range/Units 21:52 12:09 WBC 10.67 12.58 H (4.8-10.8) K/uL RBC 4.58 L 4.55 L (4.7-6.1) M/uL Hgb 12.6 L 12.7 L (14.0-18.0) g/dL Hct 39.7 L 39.8 L (42-52) % Plt Count 195 235 (130-400) K/uL Neut # (Auto) 7.08 H 10.20 H (1.4-6.5) K/uL Lymph # (Auto) 2.32 1.56 (1.2-3.4) K/uL Bates # (Auto) 0.70 H 0.77 H (0.11-0.59) K/uL Eos # (Auto) 0.51 H 0.01 (0-0.5) K/uL Baso # (Auto) 0.02 0.01 (0-0.2) K/uL Comprehensive Metabolic Panel 06/06/20 06/07/20 Range/Units 21:52 12:09 Sodium 138 135 L (136-145) mmol/L Potassium 4.1 3.8 (3.5-5.1) mmol/L Chloride 104 101 (98-107) mmol/L Carbon Dioxide 29 29 (21-32) mmol/L BUN 24 H 19 H (7-18) mg/dl Creatinine 1.16 1.13 (0.6-1.4) mg/dl Glucose 140 H 175 H (70-99) mg/dl Calcium 8.8 9.5 (8.5-10.1) mg/dl AST 15 14 L (15-37) U/L ALT 24 20 (12-78) U/L Alkaline Phosphatase 63 59 (45-117) U/L Total Protein 7.6 7.3 (6.4-8.2) gm/dl Albumin 3.8 3.6 (3.4-5.0) gm/dl Intake and Output 06/07/20 06/07/20 06/07/20 06:59 14:59 22:59 Intake Total 600 / 600 508.333 / 768.750 260.417 / 768.750 Balance 600 / 600 508.333 / 768.750 260.417 / 768.750 Intake: IV 600 / 600 508.333 / 768.750 260.417 / 768.750 OFIRMEV 1,000 mg In 100 ml @ 100 / 100 400 mls/hr IV NOW STA Rx#: [id number] Nss 500 ml @ 125 mls/hr IV .Q4H 500 / 500 508.333 / 768.750 260.417 / 768.750 [facility] Rx#:[id number] Other: Weight 82.9 kg 82.9 kg Weight Measurement Method Chair Scale Patient Weight 06/08/20 06:59 Weight 82.9 kg Diagnostic Findings Electrocardiogram: He has had several electrocardiograms, the most recent this afternoon at 1537. This shows sinus rhythm with first-degree AV block and a septal infarct, he has minor nonspecific ST-T abnormalities which might be a little bit different than his prior electrocardiogram but no changes of acute myocardial infarction other than perhaps the slightest ST elevation inferiorly which I do not think is enough to call as an abnormality. Echocardiogram: An echocardiogram done today shows normal overall left ventricular function with mild concentric left ventricular hypertrophy but there are regional wall motion abnormalities including apical akinesis. There are not prior studies for comparison. PG Care Time/CCT Total # of Minutes Spent Total Time Spent with Patient: Total time spent is greater than 50% in coordination of care (as documented) at patient's floor/unit and/or counseling patient: Coding Level of Care Code 89129 Initial Inpt Care Lvl 3 Diagnoses Chest pain R07.9 Coronary artery disease, occlusive I25.10
[2020-06-07] MEDS: Heparin IV Standard *NO* Bolus IV SCH (17:03)
[2020-06-07] MEDS ORDERED: CARBOHYDRATES FOR HYPOGLYCEMIA PO PRN (19:24)
[2020-06-07] MEDS ORDERED: GLUCAGON FOR INJ 1 MG VIAL SQ PRN (19:24)
[2020-06-07] MEDS ORDERED: GLUCOSE 10 TABS/TUBE PO PRN (19:24)
[2020-06-07] MEDS ORDERED: GLUCOSE 40% GEL 15 GM TUBE PO PRN (19:24)
[2020-06-07] MEDS ORDERED: DEXTROSE 50% 50 ML SYRINGE IV PRN (19:24)
[2020-06-07] MEDS: ACETAMINOPHEN 325 MG TAB PO PRN (20:08)
[2020-06-07] MEDS ORDERED: INSULIN GLARGINE SOLOSTAR 100 UNITS/ML 3 ML PEN SC SCH (21:00)
[2020-06-07] MEDS ORDERED: INSULIN ASPART 100 UNITS/ML 3 ML PEN SC SCH (21:00)
--- NOTE | 2020-06-07 21:00 | Communication Note ---
Date of Service: June 07, 2020 Troponin uptrending at .39. Patient clinically asymptomatic. VSS. NPO at midnight, pending cardiology re-eval in AM. Continue to trend troponin, follow clinically at this time.
[2020-06-07] MEDS: ASPIRIN 81 MG ECTAB PO SCH (21:18)
[2020-06-07] MEDS: SIMVASTATIN 40 MG TAB PO SCH (21:18)
[2020-06-07 21:41] LABS: Partial Thromboplastin Ratio 2.8
[2020-06-07 21:44] LABS: Partial Thromboplastin Time 77.9 Seconds (21.0-31.0)
[2020-06-07] MEDS ORDERED: CALCIUM CARBONATE 500 MG CHEWABLE TAB PO STA (23:56)
[2020-06-08] MEDS: SODIUM CHLORIDE 0.9% 500 ML IV SCH ×4 (01:48→16:53)
[2020-06-08] MEDS ORDERED: ASPIRIN 81 MG CHEW PO ONE (02:01)
[2020-06-08] MEDS: NITROGLYCERIN 2% OINTMENT 30GM TUBE EXT SCH ×2 (02:17→07:48)
--- NOTE | 2020-06-08 02:41 | Communication Note ---
Date of Service: June 08, 2020 Patient with indigestion/heartburn. On assessment patient reports epigastric pain, nonradiating to back or shoulder, but similar to the lower pain he felt when coming in. Mildly uptrending troponin leak. Pt on heparin gtt. EKG obtained, showed new anterior T wave inversions compared to prior. Pt without shortness of breath, dyspnea, diaphoresis, lightheadedness, or chest pain/pressure. BP 130's systolic. Given territorial T wave inversion and troponin pt plcaed on nitropaste for afterload reduction, given 3x 81mg aspirin chewable to make up a full dose, and serially assessed. PT made NPO, to be seen in AM by cards. Lab profile ordered, replete to Mg >2.0, K 4.0.
[2020-06-08 02:42] LABS: Basophils # (auto) 0.01 K/uL (0-0.2); Basophils % (auto) 0.1 %; Eosinophils # (auto) 0.02 K/uL (0-0.5); Eosinophils % (auto) 0.2 %; Hematocrit (blood only) 35.5 % (42-52); Hemoglobin 11.3 g/dL (14.0-18.0); Immature Granulocytes # (auto) 0.02 K/uL (0.00-0.02); Immature Granulocytes % (auto) 0.2 %; Lymphocytes # (auto) 1.74 K/uL (1.2-3.4); Lymphocytes % (auto) 14.7 %; Mean Corpuscular Hgb Conc 31.8 g/dL (32-36); Mean Corpuscular Volume 88.1 fL (80-100); Mean Platelet Volume 11.7 fL (7.4-10.4); Monocytes # (auto) 1.06 K/uL (0.11-0.59); Monocytes % (auto) 8.9 %; Neutrophils % (auto) 75.9 %; Platelet Count 195 K/uL (130-400); RDW Coefficient of Variation 14.5 % (11.5-14.5); RDW Standard Deviation 46.8 fL (36.4-46.3); Red Blood Count 4.03 M/uL (4.7-6.1); White Blood Count 11.85 K/uL (4.8-10.8)
[2020-06-08 03:02] LABS: INR 1.1 (0.9-1.1); Prothrombin Time 11.6 Seconds (9.0-12.0)
[2020-06-08 03:08] LABS: Albumin Level 3.1 gm/dl (3.4-5.0); BUN Creatinine Ratio 17.8 (10-20); Calcium 8.6 mg/dl (8.5-10.1); Creatinine Clr Calc Pharmacy 51.2 ml/min; Est GFR (African American) 71.4; Est GFR (Non-African American) 61.6; Magnesium 1.6 mg/dl (1.8-2.4); Potassium 3.6 mmol/L (3.5-5.1)
[2020-06-08] MEDS ORDERED: POTASSIUM CHLORIDE CRTAB 20 MEQ TABCR PO STA (03:09)
[2020-06-08] MEDS ORDERED: MAGNESIUM OXIDE 400 MG TAB PO ONE (03:10)
[2020-06-08 03:11] LABS: Bilirubin,Total 0.6 mg/dl (0.2-1); Globulin 3.1 gm/dl (2.5-4.0); Phosphorus 3.5 mg/dl (2.5-4.9); Total Protein 6.2 gm/dl (6.4-8.2)
[2020-06-08] MEDS: ACETAMINOPHEN 325 MG TAB PO PRN (05:50)
[2020-06-08 05:59] LABS: Partial Thromboplastin Ratio 2.8
[2020-06-08 06:02] LABS: Partial Thromboplastin Time 77.1 Seconds (21.0-31.0)
[2020-06-08] MEDS: INSULIN ASPART 100 UNITS/ML 3 ML PEN SC SCH ×4 (06:37→20:24)
[2020-06-08] MEDS: INDAPAMIDE 1.25 MG TAB PO SCH (07:48)
[2020-06-08] MEDS: LOSARTAN POTASSIUM 50 MG TAB PO SCH (07:48)
[2020-06-08] MEDS: DICYCLOMINE HCL 10 MG CAP PO SCH (07:49)
[2020-06-08] MEDS: MAGNESIUM OXIDE 400 MG TAB PO SCH ×2 (07:49→20:09)
[2020-06-08] MEDS: ENOXAPARIN INJ 40 MG/0.4 ML SYR SQ SCH ×2 (07:49→08:05)
--- NOTE | 2020-06-08 08:04 | Hospitalist Progress Note ---
Date of Service June 08, 2020 Assessment & Plan (1) NSTEMI (non-ST elevated myocardial infarction): presented with epigastric and chest pain, nausea troponin torri to 0.4 and EKG this morning with inverted T waves treated with heparin drip, Imdur, aspirin until he could get [facility] left heart cath on 06/[address] Bartlett, found severe disease in mid and distal LAD, with the 95% lesion in distal LAD the culprit lesion three drug eluting stents placed, tolerated well aspirin and Plavix, statin therapy monitor on PCU overnight, likely can go home tomorrow if he can ambulate in the halls and no chest pain echocardiogram with EF of 55% but with akinesis of the apex which was concerning (2) Chest pain: patient initially had epigastric pain, nausea and diarrhea after heavy dinner at the [employer] he then had pain radiating up to his chest, had some diaphoresis he says he never gets chest pain initial EKG without ischemic changes two troponin were negative, but third set up to 0.2 repeat EKG with flipped T waves in anterior leads see above (3) Epigastric pain: anginal equivalent with NSTEMI in the LAD (4) Diabetes mellitus: diabetic diet Novolog monitor for hypoglycemia, no episodes (5) Hiatal hernia: unlikely cause of epigastric pain given his elevated troponin (6) Hypercholesterolemia: continue Zocor, may consider changing to a higher intensity status (7) Hypertension: holding BP medications this morning due to low normal BP (8) Hypothyroidism: Synthroid Admission and Anticipated Discharge Date Admission Date: June 07, 2020 Subjective patient was feeling okay this morning, no epigastric pain but he did have some over night went to [employer] this morning, Dr. Bartlett found severe disease in LAD, placed three stents total in LAD, he tolerated well no chest pain or dyspnea afterwards, vitals stable he had some food later today, tolerated fine reviewed labs spoke with Dr. Wheatley prior to cath and Dr. Bartlett after cath in the afternoon he had a 2.3 second pause, will watch Review of Systems Review of Systems: All systems reviewed & are unremarkable except as noted in Subjective Physical Exam Constitutional: WD/WN, vitals as above Neck: trachea midline, no thyromegaly Respiratory: normal respiratory effort, lungs clear to auscultation Cardiovascular: RRR, no murmur, no edema Gastrointestinal (Abdomen): normal bowel sounds, soft, nontender, no hepatosplenomegaly Musculoskeletal: no cyanosis or clubbing, extremities motor strength 5/5 Skin: no rashes, warm and dry Neurologic: patellar DTR's 2+ bilat, sensation intact and PERRL, EOMI, accommodation nl, no face palsy, no dysarthria Psychiatric: A+Ox3, euthymic affect Lymphatic: no cervical or axillary lymphadenopathy Results & Data Results & Data ([facility]) Vital Signs (Past 12 Hours) Vital Signs Temp Pulse Pulse Resp BP BP Pulse Ox 06/08/20 07:55 36.6 C 58 L 18 94/57 L 90/48 L 90 06/08/20 03:20 37.2 C 55 L 20 108/45 L 92 06/08/20 02:46 71 06/08/20 02:20 55 L 18 106/57 L 97 06/07/20 22:24 37.2 C 55 L 20 137/62 90 Laboratory Results Laboratory Results - last 24 hr 06/07/20 06/07/20 06/07/20 12:09 12:09 19:52 WBC 12.58 H RBC 4.55 L Hgb 12.7 L Hct 39.8 L MCV 87.5 MCH 27.9 MCHC 31.9 L RDW Std Deviation 46.4 H RDW Coeff of Linnea 14.5 Plt Count 235 MPV 12.3 H Immature Gran % (Auto) 0.2 Neut % (Auto) 81.1 Lymph % (Auto) 12.4 [place] % (Auto) 6.1 Eos % (Auto) 0.1 Baso % (Auto) 0.1 Neut # (Auto) 10.20 H Lymph # (Auto) 1.56 [place] # (Auto) 0.77 H Eos # (Auto) 0.01 Baso # (Auto) 0.01 Immature Gran # (Auto) 0.03 H PT INR APTT PTT Ratio Sodium 135 L Potassium 3.8 Chloride 101 Carbon Dioxide 29 Anion Gap 6.0 BUN 19 H Creatinine 1.13 Est Cr Clr Drug Dosing 49.3 Est GFR ( Amer) 68.3 Est GFR (Non-Af Amer) 58.9 BUN/Creatinine Ratio 16.8 Glucose 175 H POC Glucose Calcium 9.5 Phosphorus Magnesium Total Bilirubin 0.5 AST 14 L ALT 20 Alkaline Phosphatase 59 Troponin I 0.267 H* 0.398 H* Total Protein 7.3 Albumin 3.6 Globulin 3.7 Albumin/Globulin Ratio 1.0 06/07/20 06/07/20 06/08/20 20:43 21:15 02:26 WBC 11.85 H RBC 4.03 L Hgb 11.3 L Hct 35.5 L MCV 88.1 MCH 28.0 MCHC 31.8 L RDW Std Deviation 46.8 H RDW Coeff of Linnea 14.5 Plt Count 195 MPV 11.7 H Immature Gran % (Auto) 0.2 Neut % (Auto) 75.9 Lymph % (Auto) 14.7 [place] % (Auto) 8.9 Eos % (Auto) 0.2 Baso % (Auto) 0.1 Neut # (Auto) 9.00 H Lymph # (Auto) 1.74 [place] # (Auto) 1.06 H Eos # (Auto) 0.02 Baso # (Auto) 0.01 Immature Gran # (Auto) 0.02 PT INR APTT 77.9 H* PTT Ratio 2.8 Sodium Potassium Chloride Carbon Dioxide Anion Gap BUN Creatinine Est Cr Clr Drug Dosing Est GFR ( Amer) Est GFR (Non-Af Amer) BUN/Creatinine Ratio Glucose POC Glucose 163 H Calcium Phosphorus Magnesium Total Bilirubin AST ALT Alkaline Phosphatase Troponin I Total Protein Albumin Globulin Albumin/Globulin Ratio 06/08/20 06/08/20 06/08/20 02:26 02:26 04:56 WBC RBC Hgb Hct MCV MCH MCHC RDW Std Deviation RDW Coeff of Linnea Plt Count MPV Immature Gran % (Auto) Neut % (Auto) Lymph % (Auto) [place] % (Auto) Eos % (Auto) Baso % (Auto) Neut # (Auto) Lymph # (Auto) [place] # (Auto) Eos # (Auto) Baso # (Auto) Immature Gran # (Auto) PT 11.6 INR 1.1 APTT PTT Ratio Sodium 138 Potassium 3.6 Chloride 103 Carbon Dioxide 31 Anion Gap 4.0 BUN 19 H Creatinine 1.09 Est Cr Clr Drug Dosing 51.2 Est GFR ( Amer) 71.4 Est GFR (Non-Af Amer) 61.6 BUN/Creatinine Ratio 17.8 Glucose 154 H POC Glucose Calcium 8.6 Phosphorus 3.5 Magnesium 1.6 L Total Bilirubin 0.6 AST 15 ALT 21 Alkaline Phosphatase 52 Troponin I 0.452 H* Total Protein 6.2 L Albumin 3.1 L Globulin 3.1 Albumin/Globulin Ratio 1.0 06/08/20 06/08/20 06/08/20 04:56 06:19 07:31 WBC RBC Hgb Hct MCV MCH MCHC RDW Std Deviation RDW Coeff of Linnea Plt Count MPV Immature Gran % (Auto) Neut % (Auto) Lymph % (Auto) [place] % (Auto) Eos % (Auto) Baso % (Auto) Neut # (Auto) Lymph # (Auto) [place] # (Auto) Eos # (Auto) Baso # (Auto) Immature Gran # (Auto) PT INR APTT 77.1 H* PTT Ratio 2.8 Sodium Potassium Chloride Carbon Dioxide Anion Gap BUN Creatinine Est Cr Clr Drug Dosing Est GFR ( Amer) Est GFR (Non-Af Amer) BUN/Creatinine Ratio Glucose POC Glucose 170 H 161 H Calcium Phosphorus Magnesium Total Bilirubin AST ALT Alkaline Phosphatase Troponin I Total Protein Albumin Globulin Albumin/Globulin Ratio Medications Administered Current Inpatient Medications Acetaminophen (Acetaminophen 325 Mg Tab) 650 mg PO Q4H PRN PRN Reason: Pain or Fever Stop: 07/07/20 08:32 Last Admin: 06/08/20 05:50 Dose: 650 mg Documented by: Aspirin (Aspirin 81 Mg Ectab) 81 mg PO HS [facility] Stop: 07/07/20 20:59 Last Admin: 06/07/20 21:18 Dose: 81 mg Documented by: Dextrose (Dextrose 50% 50 Ml Syringe) 25 - 50 ml IV UD PRN; Protocol PRN Reason: Hypoglycemia Protocol Stop: 07/07/20 19:23 Dicyclomine HCl (Dicyclomine Hcl 10 Mg Cap) 10 mg PO QAM MOU[facility] Stop: 07/07/20 08:59 Last Admin: 06/08/20 07:49 Dose: 10 mg Documented by: Enoxaparin Sodium (Enoxaparin Inj 40 Mg/0.4 Ml Syr) 40 mg SQ DAILY MOUNA Stop: 07/07/20 08:59 Last Admin: 06/07/20 09:36 Dose: 40 mg Documented by: Glucagon (Glucagon For Inj 1 Mg Vial) 1 mg SQ UD PRN; Protocol PRN Reason: Hypoglycemia Protocol Stop: 07/07/20 19:23 Glucose (Glucose 10 Tabs/Tube) 4 - 8 tabs PO UD PRN; Protocol PRN Reason: Hypoglycemia Protocol Stop: 07/07/20 19:23 Glucose (Glucose 40% Gel 15 Gm Tube) 15 - 30 gm PO UD PRN; Protocol PRN Reason: Hypoglycemia Protocol Stop: 07/07/20 19:23 Sodium Chloride (Nss) 500 mls @ 125 mls/hr IV .Q4H [facility] Stop: 07/06/20 23:44 Last Admin: 06/08/20 04:23 Dose: 125 mls/hr Documented by: Heparin Sodium/Dextrose (Heparin Sodium/Dextrose) 25,000 units in 500 mls @ 24 mls/hr IV .[id number] [facility]; Protocol Stop: 07/07/20 14:14 Last Titration: 06/08/20 06:11 Dose: 1,200 units/hr, 24 mls/hr Documented by: Famotidine 20 mg/ Syringe 5 mls @ 2.5 mls/min IV BID PRN PRN Reason: GERD Stop: 07/08/20 08:59 Last Admin: 06/08/20 05:51 Dose: 2.5 mls/min Documented by: Indapamide (Indapamide 1.25 Mg Tab) 1.25 mg PO QAM [facility] Stop: 07/07/20 08:59 Last Admin: 06/08/20 07:48 Dose: Not Given Documented by: Insulin Aspart (Insulin Aspart 100 Units/Ml 3 Ml Pen) 0 units SC Q6 [facility] Stop: 07/08/20 05:59 Last Admin: 06/08/20 06:37 Dose: 1 units Documented by: Losartan Potassium (Losartan Potassium 50 Mg Tab) 100 mg PO DAILY [facility] Stop: 07/07/20 08:59 Last Admin: 06/08/20 07:48 Dose: Not Given Documented by: Magnesium Oxide (Magnesium Oxide 400 Mg Tab) 400 mg PO BID [facility] Stop: 07/08/20 08:59 Last Admin: 06/08/20 07:49 Dose: 400 mg Documented by: Miscellaneous (Carbohydrates For Hypoglycemia ) 15 - 30 gm PO UD PRN PRN Reason: Hypoglycemia Protocol Stop: 07/07/20 19:23 Morphine Sulfate (Morphine Sulfate 2 Mg/Ml Carp) 2 mg IV Q30M PRN PRN Reason: Chest Pain Stop: 06/21/20 08:32 Nitroglycerin (Nitroglycerin Sl 0.4 Mg/Tab Tab) 0.4 mg SL UD PRN PRN Reason: Chest Pain Stop: 07/07/20 08:32 Last Admin: 06/07/20 15:42 Dose: 0.4 mg Documented by: Nitroglycerin (Nitroglycerin 2% Ointment 30gm Tube) 1 inch EXT Q6H [facility] Stop: 07/08/20 01:59 Last Admin: 06/08/20 07:48 Dose: Not Given Documented by: Ondansetron HCl (Ondansetron Inj 2 Mg/Ml 2 Ml Vial) 4 mg IV Q6H PRN PRN Reason: Nausea Stop: 07/07/20 08:32 Last Admin: 06/07/20 20:08 Dose: 4 mg Documented by: Pindolol (Pindolol 5 Mg Tablet) 1 ea PO BID [facility] Stop: 07/07/20 13:14 Last Admin: 06/08/20 07:48 Dose: Not Given Documented by: Simvastatin (Simvastatin 40 Mg Tab) 40 mg PO HS [facility] Stop: 07/07/20 20:59 Last Admin: 06/07/20 21:18 Dose: 40 mg Documented by: PG Care Time/CCT Total # of Minutes Spent Total Time Spent with Patient: Total time spent is greater than 50% in coordination of care (as documented) at patient's floor/unit and/or counseling patient: Coding Level of Care Code 39636 Subseq Hosp Care Lvl 3 Diagnoses NSTEMI (non-ST elevated myocardial infarction) I21.4 Chest pain R07.9 Epigastric pain R10.13 Diabetes mellitus E11.9 Hiatal hernia K44.9 Hypercholesterolemia E78.00 Hypertension I10 Hypothyroidism E03.9
[2020-06-08] MEDS ORDERED: FAMOTIDINE 20 MG in SYRINGE 3 ML IV PRN (09:00)
[2020-06-08] MEDS: HEPARIN SODIUM/DEXTROSE 25,000 UNITS/500 ML BAG IV SCH (09:57)
[2020-06-08] MEDS ORDERED: fentaNYL citrate 100 MCG/2 ML VIAL ONE (10:49)
[2020-06-08] MEDS ORDERED: HEPARIN (PORCINE) 1000 UNIT/ML 10 ML (CATH LAB USE ONLY) ONE ×2 (10:49→12:35)
[2020-06-08] MEDS ORDERED: niCARdipine HCL INJ 2.5 MG/ML 10 ML AMP ONE (10:49)
[2020-06-08] MEDS ORDERED: MIDAZOLAM HCL 1 MG/ML 2ML VIAL ONE ×2 (10:50→12:10)
[2020-06-08] MEDS ORDERED: NITROGLYCERIN/D5W 100MCG/ML 20ML SYR ONE (10:50)
--- NOTE | 2020-06-08 11:53 | Electrocardiogram Report ---
Test Reason : Blood Pressure : / mmHG Vent. Rate : 065 BPM Atrial Rate : 065 BPM P-R Int : 220 ms QRS Dur : 108 ms QT Int : 404 ms P-R-T Axes : 043 -21 062 degrees QTc Int : 420 ms Sinus rhythm with 1st degree A-V block with occasional Premature ventricular complexes Septal infarct (cited on or before 10-DEC-2015) Abnormal ECG When compared with ECG of 06-JUN-2020 21:40, Nonspecific T wave abnormality now evident in Anterolateral leads Confirmed by Chris Mcknight ([id number]) on 06/08/2020 11:53:16 AM Referred By: REFERRED SELF Confirmed By:Chris Mcknight
--- NOTE | 2020-06-08 12:16 | Cardiology Progress Note ---
Date of Service June 08, 2020 Assessment & Plan (1) Acute coronary syndromes: -symptoms, EKG changes, and elevated troponin consistent with acute coronary syndrome. -agree with intravenous heparin. -would proceed with urgent cardiac catheterization. -case discussed with Drs. Stevens and Dhruv. (2) CAD (coronary artery disease): -had an LAD PTCA at [facility] in 1993. -had an RCA BMS at [facility] in 1996. (3) Hypertension: -adequate control on current regimen. (4) Hypercholesterolemia: -would change simvastatin to either atorvastatin or rosuvastatin. Admission and Anticipated Discharge Date Admission Date: June 07, 2020 Subjective The patient is resting comfortably in bed without complaints of chest discomfort. We have discussed the need for cardiac catheterization. His is at the bedside. Physical Exam Physical Exam: In general this is a well-developed well-nourished white male in no acute distress. HEENT exam is negative. Neck is supple with full carotid upstrokes. There are no carotid bruits. Jugular venous pressure is flat at 90. There is no thyromegaly. Cardiovascular exam reveals a regular rhythm with a normal S1 and S2. No S3, S4, or murmurs are noted. Lungs are clear without rales, rhonchi, or wheezes. Abdomen is soft and nontender without bruit s. Extremities reveal intact radial artery and posterior tibial pulses bilaterally. There is no peripheral edema. Results & Data ([facility]) Vital Signs (Past 12 Hours) Vital Signs Temp Pulse Pulse Resp BP BP Pulse Ox 06/08/20 10:09 121/51 L 06/08/20 07:55 36.6 C 58 L 18 94/57 L 90/48 L 90 06/08/20 07:50 50 L 06/08/20 03:20 37.2 C 55 L 20 108/45 L 92 06/08/20 02:46 71 06/08/20 02:20 55 L 18 106/57 L 97 Laboratory Results Troponin I level continues to rise and is now at 0.452. Diagnostic Findings EKG this morning notes sinus rhythm and anterior T-wave abnormality. Echocardiogram noted low-normal systolic function with akinesis of the apex. panel monitor is benign. PG Care Time/CCT Total # of Minutes Spent Total Time Spent with Patient: Total time spent is greater than 50% in coordination of care (as documented) at patient's floor/unit and/or counseling patient: Coding Level of Care Code 26362 Subseq Hosp Care Lvl 3 Diagnoses Acute coronary syndromes I24.9 CAD (coronary artery disease) I25.10 Hypertension I10 Hypercholesterolemia E78.00
--- NOTE | 2020-06-08 12:17 | Electrocardiogram Report ---
Test Reason : Blood Pressure : / mmHG Vent. Rate : 053 BPM Atrial Rate : 053 BPM P-R Int : 162 ms QRS Dur : 104 ms QT Int : 472 ms P-R-T Axes : -04 031 100 degrees QTc Int : 442 ms Sinus bradycardia Low voltage QRS Septal infarct (cited on or before 10-DEC-2015) T wave abnormality, consider anterior ischemia Abnormal ECG When compared with ECG of 07-JUN-2020 15:37, (unconfirmed) Premature ventricular complexes are no longer Present Confirmed by Chris Mcknight ([id number]) on 06/08/2020 12:17:11 PM Referred By: REFERRED SELF Confirmed By:Chris Mcknight
[2020-06-08] MEDS ORDERED: CLOPIDOGREL BISULFATE 300 MG TAB ONE (13:17)
--- NOTE | 2020-06-08 13:19 | Post Anesthesia Assessment ---
Date of Service June 08, 2020 Post Sedation Assessment Vital Signs Temp Pulse Pulse Resp BP BP BP 06/08/20 10:09 121/51 L 06/08/20 07:55 97.9 F 58 L 18 94/57 L 90/48 L 06/08/20 07:50 50 L 06/08/20 03:20 99.0 F 55 L 20 108/45 L 06/08/20 02:46 71 06/08/20 02:20 55 L 18 106/57 L 06/07/20 22:24 99.0 F 55 L 20 137/62 06/07/20 19:00 98.4 F 61 18 113/68 06/07/20 16:25 99.1 F 67 20 124/65 06/07/20 16:00 69 06/07/20 15:46 63 17 120/61 06/07/20 15:42 65 17 142/64 H 06/07/20 15:40 66 16 06/07/20 15:31 06/07/20 15:30 65 20 142/67 H 06/07/20 15:20 65 17 06/07/20 15:12 154/77 H 06/07/20 15:11 69 20 154/77 H 06/07/20 15:10 62 17 06/07/20 15:03 67 17 06/07/20 15:01 64 19 182/75 H 06/07/20 15:00 62 14 168/120 H 06/07/20 14:50 68 9 L 06/07/20 14:40 65 12 06/07/20 14:31 68 4 L 183/92 H 06/07/20 14:30 68 11 L 06/07/20 14:20 75 15 06/07/20 14:10 70 18 06/07/20 14:00 68 19 158/71 H 06/07/20 13:50 67 19 06/07/20 13:40 69 21 06/07/20 13:39 06/07/20 13:30 65 18 153/75 H 06/07/20 13:20 66 18 Pulse Ox 06/08/20 10:09 06/08/20 07:55 90 06/08/20 07:50 06/08/20 03:20 92 06/08/20 02:46 06/08/20 02:20 97 06/07/20 22:24 90 06/07/20 19:00 96 06/07/20 16:25 93 06/07/20 16:00 06/07/20 15:46 93 06/07/20 15:42 93 06/07/20 15:40 93 06/07/20 15:31 92 06/07/20 15:30 92 06/07/20 15:20 92 06/07/20 15:12 06/07/20 15:11 95 06/07/20 15:10 96 06/07/20 15:03 97 06/07/20 15:01 97 06/07/20 15:00 97 06/07/20 14:50 96 06/07/20 14:40 95 06/07/20 14:31 94 06/07/20 14:30 94 06/07/20 14:20 93 06/07/20 14:10 95 06/07/20 14:00 96 06/07/20 13:50 92 06/07/20 13:40 95 06/07/20 13:39 96 06/07/20 13:30 97 06/07/20 13:20 93 Recovery Score Activity: Moves 4 extremities Respiration: Deep Breath/Cough Circulation: +/-20% PreAnes Value Consciousness: Fully Awake Oxygen Saturation: O2 needed for >90% Discharge Sedation Level of Care: Fast Track Phase II Post Sedation Plan On clinical assessment, the patient appears to have tolerated the sedation without complications. Patient is recovering as anticipated. Patient will continue to be monitored by nursing and may be discharged when sedation discharge criteria are met per below protocol. Upon Completions of procedure up to 15 minutes continue every 5 minute vital signs and the P.A.R. score; then discharge to a Phase I or Fast Track to Phase II per the following guidelines: * Discharge Patient to appropriate Phase II area if PAR is 8 or greater or return to pre- procedure baseline. The post - procedure orders will be as directed. * If PAR score is less than 8 or not return to pre-procedure baseline then patient will follow Phase I monitoring till PAR is reached for Phase II. The Phase I may be done in procedure room or may call to secure a Phase I area. * If naloxone or flumazenil are used for reversal, hold in Phase I for continued monitoring from when last reversal dose was given for a minimum of 60 minutes or longer pending the nurse and/or physician discretion of patient condition before discharge to Phase II. Please call the Sedation Physician to re-evaluate and complete post-note for discharge to Phase II area. Do NOT discharge from procedure sedation or Phase 1 until post- sedation evaluation note is complete by procedure /sedation MD Sedation Discharge Instructions to be given to the patient at discharge to home.
--- NOTE | 2020-06-08 13:24 | Post Operative Brief Note ---
Cardiology Brief Post Op Date of Surgery June 08, 2020 Pre & Post Diagnosis Coronary artery disease Procedure -- Hard Hat Diver Amol Bartlett MD Lead Supply Worker Liam Hanson Estimated Blood Loss 15 Findings See Below 1. Severe, diffuse, calcified mid LAD disease 70-80%. 95% early-distal stenosis (likely culprit). 2. Mild proximal Ramus disease 3. Small circumflex with distal moderate to severe disease. 4. RCA 100% GENERATOR WORKER. R-PLBs fill via left to right collaterals. Successful PCI of proximal to mid LAD with 2 overlapping KUSUM (2.5 x 30, 2.25 x 30 [place]). Successful PCI of distal LAD with single KUSUM (2.25 x 12 [place]). Anesthesia Type RN Sedation Disposition Disposition: PCU
[2020-06-08] MEDS ORDERED: SODIUM CHLORIDE 0.9% 1000ML 750 ML IV SCH (13:30)
[2020-06-08] MEDS: ASPIRIN 81 MG ECTAB PO SCH (20:09)
[2020-06-08] MEDS: SIMVASTATIN 40 MG TAB PO SCH (20:10)
--- NOTE | 2020-06-08 23:44 | Cardiac Catheterization ---
ACC Data: [employer] Therapist Cardiac Status Clinical evaluation leading to the procedure CAD Presenation: Non STEMI Anginal Classification: CCS IV Heart Failure: No Cardiogenic Shock within 24 Hours: No Cardiac Arrest within 24 Hours: No Imaging Studies Past 6 Months: Yes Stress Studies Past 6 Months: No Diagnostic Physicians Name: Amol Bartlett MD Status: Elective Closure Device Percutaneous Entry Location: Radial Closure Device: Radial Band Recommendations: PCI without planned CABG PCI Indication: PCI for high risk Non-ALEXEY Lesion Segment Name: proximal to mid LAD Culprit Artery: Yes Stenosis Prior to Rx (%): 75 Chronic Total Occlusion: No IVUS: No FFR: No Pre-Procedure OSWALDO Flow: 3 Previously Treated Lesion: No Lesion Complexity: High/C Lesion Length (mm): 50 Thrombus Present: No Bifurcation Lesion: No Guidewire Across Lesion: Stenosis Post-Procedure (%): 0 Post-Procedure OSWALDO Flow: 3 Devices(s) Deployed: Yes Yes Lesion #2 Segment Name: Distal LAD Culprit Artery: Yes Stenosis Prior to Rx (%): 95 Chronic Total Occlusion: No IVUS: No FFR: No Pre-Procedure OSWALDO Flow: 3 Previously Treated Lesion: No Lesion Complexity: Non-High/Non-C Lesion Length (mm): 10 Thrombus Present: No Bifurcation Lesion: No Guidewire Across Lesion: Yes Stenosis Post-Procedure (%): 0 Post-Procedure OSWALDO Flow: 3 Devices(s) Deployed: Yes Intraprocedure Events Significant Disection: No Perforation: No Cardiac Cath Procedure Full Procedure Date June 08, 2020 Pre-Procedure Diagnosis Pre-Procedure Diagnosis: Non STEMI AUC Score AUC Score: 8 Post-Procedure Diagnosis Post-Procedure Diagnosis: Severe CAD, Successful PCI and Normal Intracardiac Pressures Procedure(s) Performed Procedure(s) Performed: Coronary Angiography, Left Heart Cath, Drug Eluting Stent and Ultrasound Guided Vascular Access Tire Care Manager Amol Bartlett MD Spring Up Supervisor(s) aVlentin Wheeler Estimated Blood Loss Estimated Blood Loss: 15 Medication(s) Medication(s): Clopidogrel, Fentanyl, Heparin, Lidocaine 1%, Nicardipine, Nitroglycerin and Versed Summary of Findings Indication: Acute coronary syndrome Access: 6 Fr slender right radial artery under ultrasound guidance Catheters: [place], EBU 3.5 guide Findings: LM -large caliber, luminal regularities LAD -medium caliber vessel, heavily calcified, diffuse proximal to mid severe disease up to 80%. 95% acute earlydistal LAD stenosis just after takeoff of D3. Small D1, D2 with diffuse disease. Ramuslarge caliber, diffuse 30 to 40% proximal disease Circumflex -small caliber, OM1 with moderate diffuse disease prior to 70% stenosis before bifurcation. Small distal AV groove circumflex with diffuse disease. RCA -dominant, 100% chronic total occlusion of earlymid segment. Distal RCA stent occluded. Right PLB's fill via left to right collaterals LVEDP -14 -- PCI -- Antithrombotic therapy: Heparin, clopidogrel Procedure: Left main cannulated with EBU 3.5 guide Lead Ramp Service Man 50 wire passed across lesion into distal vessel With the aid of a GuideLiner mid and distal lesions predilated with 2.0 compliant balloon Dilated distal LAD stented with 2.25 x 12 mm Bernabe Proximal to mid LAD stented with 2 overlapping drug-eluting stents (2.5 x 30, 2.25 x 30 [place]) Stents post-dilated with 2.5 noncompliant balloon IC vasodilators administered for spasm Post procedure OSWALDO 3 flow, stent well expanded with minimal residual stenosis and no apparent cardiac complications. Arterial Closure: TR band Summary: 1. Severe multi-vessel coronary artery disease -LAD with diffuse proximal to mid 70 to 80% disease. 95% distal LAD stenosis (acute culprit). 100% earlymid RCA chronic total occlusion Small OM with 70% disease 2. Normal intracardiac filling pressure 3. Successful PCI of proximal to mid LAD with 2 overlapping drug-eluting stents (2.5 x 30, 2.25 x 30 [place]). 4. Successful PCI of distal LAD with additional drug-eluting stent (2.25 x 12 [place]). Recommendations: To PCU for continued monitoring Loaded with clopidogrel 600 mg in cath Continue dual-antiplatelet therapy for at least 6 months Continue statin, and ASCVD risk factor modification Consult cardiac Rehab Hemodynamics Rest Ao:: 116/51/74 Final Ao: 107/45/83 LV: 118/14 Recommendations Recommendations: PCI without planned CABG Specimens Specimens: None Radiation Exposure (mGy) 4277 Contrast (mls) 130 Fluids (cc crystalloids) Fluids (cc crystalloids): 100 Drains Drains: none Anesthesia moderate Procedural Complication(s) None Disposition PCU I attest to the content of the Intraoperative Record and any orders documented therein. Any exceptions are noted below. [facility] Card Cath Procedure Codes Cardiac Catheterization Procedure 1: Cardiovascular Cath Procedures: 74033 Coronaries and LHC (+/-LV) Therapeutic Services & Ancillary Proc Procedure 1: Cardiovascular Tx and Anc Procedures: 01366 Ultrasonic Guidance Vascular Access Moderate Sedation Procedure 1: Sedation/Anesthesia: 40818 Mod Sedation by the same physician;Init15 Min Child Age 5 & Up Procedure 2: Sedation/Anesthesia: 99486 Mod Sedation by the same physician; Ea [id number] Minutes Stenting Procedure 1: Cardiovascular Stent Procedures: 16474 Perc transcatheter placement of intracoronary stent(s), with ang PG Care Time/CCT Total # of Minutes Spent Total Time Spent with Patient: Total time spent is greater than 50% in coordination of care (as documented) at patient's floor/unit and/or counseling patient:
[2020-06-09] MEDS: INSULIN ASPART 100 UNITS/ML 3 ML PEN SC SCH (07:58)
[2020-06-09] MEDS: DICYCLOMINE HCL 10 MG CAP PO SCH ×2 (08:04→08:07)
[2020-06-09] MEDS: INDAPAMIDE 1.25 MG TAB PO SCH ×3 (08:04→08:07)
[2020-06-09] MEDS: LOSARTAN POTASSIUM 50 MG TAB PO SCH ×2 (08:04→08:06)
[2020-06-09] MEDS: ENOXAPARIN INJ 40 MG/0.4 ML SYR SQ SCH (08:08)
[2020-06-09] MEDS: MAGNESIUM OXIDE 400 MG TAB PO SCH (08:08)
[2020-06-09 08:25] LABS: Hemoglobin 11.3 g/dL (14.0-18.0); Mean Corpuscular Hemoglobin 27.8 pg (25-34); Mean Corpuscular Hgb Conc 32.3 g/dL (32-36); Mean Platelet Volume 11.4 fL (7.4-10.4); Platelet Count 158 K/uL (130-400); RDW Coefficient of Variation 14.4 % (11.5-14.5); RDW Standard Deviation 44.9 fL (36.4-46.3); Red Blood Count 4.07 M/uL (4.7-6.1); White Blood Count 10.61 K/uL (4.8-10.8)
[2020-06-09] MEDS ORDERED: CLOPIDOGREL BISULFATE 75 MG TAB PO SCH (09:00)
[2020-06-09 09:40] LABS: BUN Creatinine Ratio 15.1 (10-20); Calcium 8.6 mg/dl (8.5-10.1); Creatinine Clr Calc Pharmacy 55.8 ml/min; Est GFR (African American) 79.2; Est GFR (Non-African American) 68.3; Potassium 3.4 mmol/L (3.5-5.1)
--- NOTE | 2020-06-09 12:22 | Discharge Summary ---
Date of Service June 09, 2020 Admission HPI Per Admitting Provider 84 yo male with remote history of CAD with stent placed in 1996 who presented to the ED early this morning due to epigastric pain and chest pain. He and his were out to eat last night at the [employer] club. He said they were eating food that was very rich and he normally does not eat foods that are like that. He started to feel uneasy in his stomach when they got home then had epigastric pain. He experienced some nausea as well. He then had a large loose BM but that did not help his pain. He said the pain radiated up to his chest, it was a pressure like pain. He had diaphoresis. He tried to take some Tums but that did nothing to improve pain. He was not able to rest and started to get worried about his heart so he came to the ED. By the time he was in the ED he said the pain had returned to his epigastric region. At it's worse it was a 7 out of 10. Nothing made it better or worse. EKG showed no ischemic changes. Initial two troponin in the ED were negative. BMP and CBC unremarkable. CT abdomen/pelvis showed a hiatal hernia but nothing else. RUQ US shows no gall stones or cholecystitis. Patient placed on observation, his third troponin at noon trended up to 0.2 Revisited patient and he was still having epigastric pain. Got some relief with Imdur and Nitro SL x 2. Principal Diagnosis NSTEMI Discharge Exam Constitutional WD/WN, vitals as above Eyes PERRL, conjunctivae normal, anicteric sclerae ENMT external ear and nose normal, oropharynx normal Neck trachea midline, no thyromegaly Respiratory normal respiratory effort, lungs clear to auscultation Cardiovascular RRR, no murmur, no edema Gastrointestinal (Abdomen) normal bowel sounds, soft, nontender, no hepatosplenomegaly Musculoskeletal no cyanosis or clubbing, extremities motor strength 5/5 Skin no rashes, warm and dry Neurologic patellar DTR's 2+ bilat, sensation intact and PERRL, EOMI, accommodation nl, no face palsy, no dysarthria Psychiatric A+Ox3, euthymic affect Lymphatic no cervical or axillary lymphadenopathy Discharge Data Allergies Allergy/AdvReac Type Severity Reaction Status Date / Time lisinopril Allergy Severe FACE SWELLS Verified 06/07/20 00:17 Consultations 06/07/20 07:29 ED Decision to Admit Stat 06/07/20 14:17 Consult Cardiology Routine Procedures Performed Operation Date: 06/08/20 11:00 Actual Procedures p Drug Eluting Stent SGl Vessel - Chris Bartlett MD s Cath, Left with Cors and Vent - Chris Bartlett MD s Cineradiography w/Routine Exam - Chris Bartlett MD s Ultrasound Vascular Access - Chris Bartlett MD Ordered Studies 06/06/20 23:32 US gallbladder Urgent 06/07/20 03:47 CT abd pelvis IV con only Urgent 06/08/20 09:07 CL Cath Imgs for PACS use only Routine 06/08/20 11:23 CL Cath Imgs for PACS use only Stat Hospital Course (1) NSTEMI (non-ST elevated myocardial infarction): presented with epigastric and chest pain, nausea troponin torri to 0.4 and EKG on 06/08 with inverted T waves treated with heparin drip, Imdur, aspirin until he could get [facility] left heart cath on 06/[address] Bartlett, found severe disease in mid and distal LAD, with the 95% lesion in distal LAD the culprit lesion three drug eluting stents placed, tolerated well aspirin and Plavix, statin therapy monitor on PCU overnight, no acute issues today he ambulated a few hundred feet with no chest pain, no dyspnea, no light headedness discharge to home, instructed no strenuous activity for two weeks, follow up w jose alberto Astudillo this week, Dr. Wheatley in two weeks echocardiogram with EF of 55% but with akinesis of the apex no clinical evidence of heart failure (2) Chest pain: patient initially had epigastric pain, nausea and diarrhea after heavy dinner at the [employer] he then had pain radiating up to his chest, had some diaphoresis he says he never gets chest pain initial EKG without ischemic changes two troponin were negative, but third set up to 0.2 and further troponin peaked at 0.4 repeat EKG with flipped T waves in anterior leads see above (3) Epigastric pain: anginal equivalent with NSTEMI in the LAD (4) Diabetes mellitus: diabetic diet Novolog SS monitor for hypoglycemia, no episodes (5) Hiatal hernia: unlikely cause of epigastric pain given his elevated troponin changed omeprazole to pantoprazole due to interaction with Plavix (6) Hypercholesterolemia: continue Zocor given his age could change as outpatient but defer to PCP or Dr. Wheatley (7) Hypertension: BP is stable on home regimen (8) Hypothyroidism: Synthroid Total Time Total Time Spent Total Time Spent (In Minutes): 32 minutes Total Time Includes: Examination of the Patient, Discharge Planning, Medication Reconciliation and Communication With Other Providers (Dr. Bartlett) Discharge Plan Discharge Items Patient Disposition: Home - Self-Care Reason For Visit: EPIGASTRIC AND CHEST PAIN Discharge Diagnosis: NSTEMI Condition on Discharge: Good Goals: medical management of coronary disease Activity: Per Instructions section Lifting: None Bathing: No limitations Sexual Activity: Wait until after follow-up appointment Exercise/Sports: Wait until after follow-up appointment Driving/Machine Use: Resume 1 day after discharge Weightbearing: Full weightbearing Non-emergency contact: Primary Care Provider and Locomotive Inspector Call non-emergency contact if: you have any medication questions and your symptoms worsen Follow-up/Referrals: Yuri Astudillo MD [Primary Care Provider] - (one week) Matteo Wheatley MD [Physician] - (two weeks) Diet: Heart Healthy Addtl Attending Provider Instructions: Medications: - PLAVIX: 75mg daily, take this with aspirin 81mg daily for the next year, this helps keep stent open - PROTONIX: 40mg daily, this REPLACES the omeprazole that you were taking, needed to make the switch because omeprazole reduces effectiveness of Plavix - METFORMIN: hold this medication until Monday 06/11 since you got contrast with your heart cath NSTEMI, severe coronary disease left heart cath showed severe disease in LAD as well as a total occlusion in the right coronary, but the right coronary had collateral flow, this was chronic the LAD lesions were more acute with a 95% distal occlusion that was likely the culprit in causing your symptoms three drug eluting stents were placed in the LAD tolerated well, vitals stable, no chest pain recommend light activity for the next two weeks, can go on light walks please see Dr. Astudillo next week and Dr. Wheatley in two weeks Epigastric pain and nausea: most likely due to inferior wall heart attack, could have some symptoms from hiatal hernia continue on Protonix which will reduce acid production follow a light diet for the next few days, nothing heavy or greasy again, follow up with Dr. Astudillo Pending Studies at Discharge: No Stand-Alone Forms: My [facility], Smoking Cessation Medications and DC Order Prescriptions: New clopidogrel 75 mg Tablet 75 mg PO QAM 30 Days Qty: 30 RF: 3 pantoprazole [Protonix] 40 mg tablet,delayed release (DR/EC) 40 mg PO DAILY 30 Days Qty: 30 RF: 3 Continued metformin [Glucophage XR] 500 mg tablet extended release 24 hr 1,000 mg PO BID Qty: 360 RF: 3 indapamide 1.25 mg tablet 1.25 mg PO QAM Qty: 90 RF: 3 levothyroxine [Synthroid] 150 mcg tablet 150 mcg PO QAM Qty: 90 RF: 3 allopurinol [Zyloprim] 300 mg tablet 300 mg PO QAM Qty: 90 RF: 3 nitroglycerin [Nitrostat] 0.4 mg tablet, sublingual 0.4 mg Sublingual UD PRN (Reason: Chest Pain) Qty: 25 RF: 1 losartan 100 mg tablet 100 mg PO DAILY Qty: 90 RF: 3 dicyclomine 10 mg capsule 10 mg PO QAM Qty: 90 RF: 3 glipizide 5 mg tablet extended release 24hr 5 mg PO BID 90 Days Qty: 180 RF: 3 pindolol 5 mg tablet 5 mg PO BID RF: 0 ketoconazole 2 % cream 1 applic Topical BID PRN (Reason: IRRITATION) RF: 0 aspirin 81 mg Tablet,Delayed Release (Dr/Ec) 81 mg PO HS RF: 0 simvastatin [Zocor] 40 mg tablet 40 mg PO HS RF: 0 multivitamin Capsule 1 cap PO DAILY RF: 0 Discontinued omeprazole 20 mg capsule,delayed release(DR/EC) 20 mg PO QAM Qty: 90 RF: 3 Discharge Orders: Discharge Order (Routine); Ordered 06/09/20 Ordered By: Dereck Patino/Other Patient Handouts: Symptoms of a Heart Attack, Managing Post-Op Pain at Home Admission Data Admit Date/Time: 06/07/20 21:37 Attending Provider: Dereck Stevens Admit Provider: Dereck Stevens Primary Care Provider: Yuri Astudillo Other Providers: Dereck Stevens ; Matteo Wheatley Other Interventions: Discharge Summary Assessment (RN) Last Done: 06/09/20 10:08 Coding Level of Care Code D/C Day Management >30 mins Diagnoses NSTEMI (non-ST elevated myocardial infarction) I21.4 Chest pain R07.9 Epigastric pain R10.13 Diabetes mellitus E11.9 Hiatal hernia K44.9 Hypercholesterolemia E78.00 Hypertension I10 Hypothyroidism E03.9
--- NOTE | 2020-06-10 06:17 | Electrocardiogram Report ---
Test Reason : Blood Pressure : / mmHG Vent. Rate : 051 BPM Atrial Rate : 051 BPM P-R Int : 214 ms QRS Dur : 100 ms QT Int : 512 ms P-R-T Axes : 040 004 003 degrees QTc Int : 471 ms Sinus bradycardia with 1st degree A-V block T wave abnormality, consider inferior ischemia T wave abnormality, consider anterolateral ischemia Prolonged QT Abnormal ECG When compared with ECG of 08-JUN-2020 07:18, Premature ventricular complexes are no longer Present QT has shortened Confirmed by Chris Mcknight ([id number]) on 06/10/2020 6:17:35 AM Referred By: REFERRED SELF Confirmed By:Chris Mcknight
--- NOTE | 2020-06-10 06:42 | Electrocardiogram Report ---
Test Reason : Blood Pressure : / mmHG Vent. Rate : 075 BPM Atrial Rate : 061 BPM P-R Int : 200 ms QRS Dur : 112 ms QT Int : 438 ms P-R-T Axes : 038 020 029 degrees QTc Int : 489 ms Sinus rhythm with Premature ventricular complexes Incomplete left bundle block T wave abnormality, consider anterolateral ischemia Prolonged QT Abnormal ECG When compared with ECG of 08-JUN-2020 14:30, (unconfirmed) Premature ventricular complexes are now Present Confirmed by Chris Mcknight ([id number]) on 06/10/2020 6:42:28 AM Referred By: REFERRED SELF Confirmed By:Chris Mcknight
== END 2020-06-09 11:05 | disposition home or self-care (01) | DRG 247 ==
LOC: EDINP 21:32 → ED 21:32 → 2W 06-07 16:12 → 2S 06-08 13:39

== ENCOUNTER 2021-09-16 11:50 | Inpatient (IN) ==
[2021-09-16] MEDS ORDERED: TXA 10% Non-IV Routes 100 MG/ML VIAL TOP ONE ×2 (12:00→17:30)
[2021-09-16] MEDS ORDERED: ACETAMINOPHEN 1000 MG/100 ML IV IV ONE (12:13)
[2021-09-16 12:18] LABS: Basophils # (auto) 0.01 K/uL (0-0.2); Basophils % (auto) 0.1 %; Eosinophils # (auto) 0.42 K/uL (0-0.5); Eosinophils % (auto) 4.4 %; Hematocrit (blood only) 33.1 % (42-52); Hemoglobin 10.6 g/dL (14.0-18.0); Immature Granulocytes # (auto) 0.03 K/uL (0.00-0.02); Immature Granulocytes % (auto) 0.3 %; Lymphocytes # (auto) 1.87 K/uL (1.2-3.4); Lymphocytes % (auto) 19.8 %; Mean Corpuscular Hemoglobin 26.6 pg (25-34); Mean Corpuscular Volume 83.2 fL (80-100); Monocytes % (auto) 9.5 %; Neutrophils # (auto) 6.22 K/uL (1.4-6.5); Neutrophils % (auto) 65.9 %; Platelet Count 228 K/uL (130-400); RDW Coefficient of Variation 15.5 % (11.5-14.5); RDW Standard Deviation 47.3 fL (36.4-46.3); Red Blood Count 3.98 M/uL (4.7-6.1); White Blood Count 9.45 K/uL (4.8-10.8)
--- NOTE | 2021-09-16 12:25 | Emergency Department Note ---
Impression & Plan Post-operative haemorrhage ED Provider Note NAME: MAG RODRIGUEZ AGE: 85 SEX: M : 1935 ARRIVES VIA: Ambulance INFORMANT: Patient, ED PROVIDER(S): Matteo Lal DO CHIEF COMPLAINT: Bleeding HPI: The patient is an 85-year-old male who has a history of a fall where he suffered a hematoma to the left side of his forehead. He was having this drained at the plastic surgeons office. He started having bleeding which was uncontrolled and was sent to the emergency department for further evaluation. Attempts were made to stop the bleeding with cautery as well as pressure. He did have quick clot placed prior to arrival and this appears to have helped because at this time there is no active bleeding. The patient did take his medications today. He takes apixaban and he also takes Plavix. He denies having any nausea or vomiting. He denies having any lightheadedness. The patient denies having any recent fevers. He denies having any other trauma. He was seen here initially after the head injury. ROS: See above HPI for pertinent positives & negatives. A total of 10 systems reviewed and were otherwise negative. PAST MEDICAL HISTORY: See Below PAST SURGICAL HISTORY: See Below FAMILY HISTORY: See Below SOCIAL HISTORY: See Below HOME MEDICATIONS: See Below ALLERGIES: See Below VITALS: See Below PHYSICAL EXAMINATION: GENERAL: The patient is awake and alert. He is very anxious appearing. EYES: The conjunctivae are clear. The pupils are round and reactive. EARS, NOSE, MOUTH AND THROAT: The nose is without any evidence of any deformity. There is a pressure dressing on the forehead. There is a surgical site noted on the lateral left forehead. It is above the left eyebrow. Between the surgical site and the eyebrow there is a pulsatile vessel. The surgical site is packed with quick clot. No active bleeding was noted. NECK: The neck is nontender and supple. RESPIRATORY: Normal respiratory effort is noted there is no evidence of wheezing rhonchi or rales CARDIOVASCULAR: Regular rate and rhythm noted there no murmurs rubs or gallops normal S1 normal S2. GASTROINTESTINAL: The abdomen is soft. Abdomen is nontender. MUSCULOSKELETAL/EXTREMITIES: There is no evidence of gross deformity full range of motion is noted in the hips and shoulders. SKIN: Trace pedal edema was noted bilaterally. NEUROLOGIC: Patient is awake alert and oriented x3 MEDICAL DECISION MAKING: The patient is an 85-year-old male who presented to the emergency department from plastic surgery for an evaluation of bleeding. The patient has history of venous thromboembolic disease. He does take oral anticoagulation. He last took his oral anticoagulation this morning. He also takes Plavix. The patient presented to the emergency department by ambulance after significant bleeding. He had a laceration sustained to his forehead and a surgical procedure. The patient had very severe bleeding. This area was packed with quick clot prior to arrival. This appeared to have tamponaded the bleeding. He was further treated with TXA and pressure dressing in the emergency department. I discussed patient's laboratory results with him. The patient was evaluated in the emergency department by his primary plastic surgeon. He did have a significant amount of blood loss on scene. For this reason I discussed this case with the on-call [facility] hospitalist. They have agreed to observe the patient given his recent blood loss and further work-up. Triage Nursing notes reviewed. Prior medical records reviewed Vital Signs: reviewed and remarkable for elevated blood pressure and bradycardia. Differential diagnosis: Differential diagnosis in this patient could include foreign body, infection, anticoagulation, thrombocytopenia, bleeding vessel which could include arterial versus venous and other differential diagnoses were considered. ER treatment provided: See below Diagnostics interpreted by me: ECG: EKG was obtained in the emergency department. My interpretation is sinus bradycardia 55 bpm. There were no PVCs noted. Left bundle branch block pattern was noted. This was compared to a tracing from June 09, 2020. No sig nificant changes were noted. Cardiac Monitoring: An order was placed for continuous cardiac monitoring. The monitor shows a rate of 57 bpm with sinus bradycardia. Laboratory studies: As stated above and show below. Imaging studies: See below Consultation(s): I discussed this case with Dr. Dale. I discussed this case with Dr. Bedoya [facility] Past Med/Surg History Medical History Coronary artery disease, occlusive DVT (deep venous thrombosis) Gout, joint Hearing loss Hypercholesterolemia Hypertension Hypothyroidism NSTEMI (non-ST elevated myocardial infarction) 06/07/2020--had heart cath @ [facility] with 3 KUSUM placed--follows with Dr. Wheatley Type 2 diabetes mellitus Surgical History History of cardiac cath 06/08/2020 @ [facility] with 3 KUSUM stents placed "ANGIOPLASTY" X2 - 1994, 1996 1996 - STENT X 1 History of cataract surgery bilt History of colonoscopy History of heart artery stent X 1 - 1996 History of left knee surgery X3 History of shoulder surgery RIGHT/DISLOCATED Stented coronary artery 06/08/2020 x3 KUSUM placed @ [facility]---PCI of proximal to mid LAD with 2 overlapping drug-eluting stents PCI of distal LAD with additional drug-eluting stent Family History Mother Heart disease Hypertension Myocardial infarction Father Heart disease Hypertension Myocardial infarction Other No family history of adverse response to anesthesia Denies family history of Ovarian cancer Prostate cancer Breast cancer Colorectal cancer Social History Smoking Status: Never smoker packs per day: 1; Cigarettes Per Day: 45 YEARS AGO; Second Hand Exposure: Yes; Hx Alcohol Use: Yes Alcohol type: wine Alcohol Intake Frequency: Monthly or Less Hx Substance Use: No Preferred Language: Serbian Communication Ability: Effective Visual Impairment: No Limitations Hearing Ability: Use of Hearing Aid Clinical Laboratory Scientist Required: No Beliefs That Will Affect Care: None marital status: Current Living Situation: Spouse 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 Feels Safe at Home: Yes Childhood Exposure to Second-Hand Smoke: Yes Dental Care, Regularly: Yes Physical Activity Frequency: Does not Exercise Seatbelt Use: always Sunscreen Use: No Assistive Devices: Denture - Upper, Denture - Lower, Glasses and Hearing Aid - Bilateral Allergies Allergies Allergy/AdvReac Type Severity Reaction Status Date / Time lisinopril Allergy Severe FACE SWELLS Verified 09/16/21 14:46 Home Meds Home Medications Medication Instructions Recorded Confirmed omeprazole 20 mg capsule,delayed 20 mg PO HS cap 07/15/21 09/16/21 release allopurinol 300 mg tablet 300 mg PO DAILY 08/23/21 09/16/21 metformin 500 mg tablet,extended 1,000 mg PO BIDM 09/16/21 09/16/21 release 24 hr multivitamin 1 tab PO QAM 09/16/21 09/16/21 Previous Rx's Medication Instructions Recorded pindolol 5 mg tablet 5 mg PO BID #180 tab 08/06/20 meclizine 25 mg tablet 25 mg PO QID PRN #30 tab 10/02/20 ketoconazole 2 % topical cream 1 applic TOPICAL BID PRN #60 g 10/09/20 dicyclomine 10 mg capsule 10 mg PO QAM #90 cap 11/23/20 losartan 100 mg tablet 100 mg PO QAM #90 tab 11/23/20 nitroglycerin 0.4 mg sublingual 0.4 mg SUBLINGUAL UD PRN #25 tab 02/01/21 tablet (Nitrostat) glipizide 5 mg tablet, extended 5 mg PO BID 90 Days #180 tab 03/25/21 release 24 hr clopidogrel 75 mg tablet 75 mg PO QAM 90 Days #90 tab 05/21/21 apixaban 2.5 mg tablet (Eliquis) 2.5 mg PO BID #60 tab 05/31/21 simvastatin 40 mg tablet (Zocor) 40 mg PO HS #90 tab 05/31/21 indapamide 1.25 mg tablet 1.25 mg PO DAILY #90 tab 08/05/21 levothyroxine 150 mcg tablet 150 mcg PO DAILY #90 tab 09/03/21 Results & Data (ED) Vital Signs Vital Signs - 24 hr 09/16/21 11:51 09/16/21 12:06 Pulse Rate 56 L 57 L Pulse Rate [Apical] 57 L Pulse Rhythm Regular Respiratory Rate 17 19 Respiratory Depth Normal Blood Pressure 166/83 H Blood Pressure [Right Arm] 166/82 H Blood Pressure Mean 110 Blood Pressure Mean [Right Arm] 110 Pulse Oximetry 96 97 Oxygen Delivery Method Room Air Room Air Sepsis Recent Fever Within 48 Hours No Sepsis New/Unexplained Change in Mental Status N/A Sepsis Action Taken by Nursing No Action Required Home Medications Current Medication List: was personally reviewed by me Laboratory Data Attestation: I reviewed the patient's lab results. Result diagrams: 09/16/21 11:52 09/16/21 11:52 Lab Results 09/16/21 09/16/21 09/16/21 Range/Units 11:52 11:52 11:52 WBC 9.45 (4.8-10.8) K/uL RBC 3.98 L (4.7-6.1) M/uL Hgb 10.6 L (14.0-18.0) g/dL Hct 33.1 L (42-52) % MCV 83.2 (80-100) fL MCH 26.6 (25-34) pg MCHC 32.0 (32-36) g/dL RDW Std Deviation 47.3 H (36.4-46.3) fL RDW Coeff of Linnea 15.5 H (11.5-14.5) % Plt Count 228 (130-400) K/uL MPV 12.0 H (7.4-10.4) fL Immature Gran % (Auto) 0.3 % Neut % (Auto) 65.9 % Lymph % (Auto) 19.8 % Hudspeth % (Auto) 9.5 % Eos % (Auto) 4.4 % Baso % (Auto) 0.1 % Neut # (Auto) 6.22 (1.4-6.5) K/uL Lymph # (Auto) 1.87 (1.2-3.4) K/uL Hudspeth # (Auto) 0.90 H (0.11-0.59) K/uL Eos # (Auto) 0.42 (0-0.5) K/uL Baso # (Auto) 0.01 (0-0.2) K/uL Immature Gran # (Auto) 0.03 H (0.00-0.02) K/uL PT 10.9 (9.0-12.0) Seconds INR 1.1 (0.9-1.1) APTT 32.8 H (21.0-31.0) Seconds PTT Ratio 1.2 Sodium 131 L (136-145) mmol/L Potassium 4.4 (3.5-5.1) mmol/L Chloride 97 L (98-107) mmol/L Carbon Dioxide 29 (21-32) mmol/L Anion Gap 5 (3-11) BUN 22 (6-23) mg/dl Creatinine 0.89 (0.6-1.4) mg/dl Est Cr Clr Drug Dosing 61.5 ml/min Est GFR ( Amer) 89.7 ml/min Est GFR (Non-Af Amer) 77.4 ml/min BUN/Creatinine Ratio 24.7 H (10-20) Glucose 131 H (70-99(Fasting)) mg/dl Calcium 9.1 (8.5-10.1) mg/dl Total Bilirubin 0.5 (0.2-1.0) mg/dl AST 13 (13-39) U/L ALT 13 (7-52) U/L Alkaline Phosphatase 41 (34-104) U/L Total Protein 6.2 (6.0-8.3) gm/dl Albumin 3.8 (3.4-5.0) gm/dl Globulin 2.4 L (2.5-4.0) gm/dl Albumin/Globulin Ratio 1.6 (0.9-2) Administered Medications Discontinued Medications Acetaminophen (Acetaminophen 1000 Mg/100 Ml Iv) Confirm Administered Dose 1,000 mg IV .STK-MED ONE Stop: 09/16/21 12:14 Last Admin: 09/16/21 12:18 Dose: 1,000 mg Documented by: [id number] Morphine Sulfate (Morphine Sulfate 2 Mg/Ml Carp) Confirm Administered Dose 2 mg .ROUTE .STK-MED ONE Stop: 09/16/21 17:28 Last Admin: 09/16/21 17:28 Dose: 2 mg Documented by: [id number] Tranexamic Acid (Txa 10% Non-Iv Routes 100 Mg/Ml Vial) 500 mg TOP ONE ONE Stop: 09/16/21 12:01 Last Admin: 09/16/21 12:06 Dose: 500 mg Documented by: [id number] Tranexamic Acid (Txa 10% Non-Iv Routes 100 Mg/Ml Vial) 500 mg TOP ONE ONE Stop: 09/16/21 17:31 Last Admin: 09/16/21 17:28 Dose: 500 mg Documented by: [id number] Discharge Plan Visit Data Chief Complaint: Bleeding ED Provider: Matteo Lal Discharge Problem: Post-operative haemorrhage Patient Disposition: Being Evaluated by Hospitalist Forms Stand Alone Forms: [facility] Prescriptions Prescriptions: No Action pindolol 5 mg tablet 5 mg PO BID Qty: 180 RF: 3 ketoconazole 2 % cream 1 applic Topical BID PRN (Reason: IRRITATION) Qty: 60 RF: 3 nitroglycerin [Nitrostat] 0.4 mg tablet, sublingual 0.4 mg Sublingual UD PRN (Reason: Chest Pain) Qty: 25 RF: 1 glipizide 5 mg tablet extended release 24hr 5 mg PO BID 90 Days Qty: 180 RF: 3 clopidogrel 75 mg tablet 75 mg PO QAM 90 Days Qty: 90 RF: 3 indapamide 1.25 mg tablet 1.25 mg PO DAILY Qty: 90 RF: 3 Eliquis 2.5 mg tablet 2.5 mg PO BID Qty: 60 RF: 2 simvastatin [Zocor] 40 mg tablet 40 mg PO HS Qty: 90 RF: 3 omeprazole 20 mg capsule,delayed release(DR/EC) 20 mg PO HS RF: 0 dicyclomine 10 mg capsule 10 mg PO QAM Qty: 90 RF: 3 losartan 100 mg tablet 100 mg PO QAM Qty: 90 RF: 3 meclizine 25 mg tablet 25 mg PO QID PRN (Reason: dizziness) Qty: 30 RF: 5 levothyroxine 150 mcg tablet 150 mcg PO DAILY Qty: 90 RF: 3 allopurinol 300 mg tablet 300 mg PO DAILY RF: 0 multivitamin Tablet 1 tab PO QAM RF: 0 metformin 500 mg tablet extended release 24 hr 1,000 mg PO BIDM RF: 0 Referrals Referrals: ProMatteo MD [Primary Care Provider] -
[2021-09-16 12:29] LABS: INR 1.1 (0.9-1.1); Partial Thromboplastin Ratio 1.2; Partial Thromboplastin Time 32.8 Seconds (21.0-31.0); Prothrombin Time 10.9 Seconds (9.0-12.0)
[2021-09-16 12:49] LABS: Albumin Globulin Ratio 1.6 (0.9-2); Albumin Level 3.8 gm/dl (3.4-5.0); BUN Creatinine Ratio 24.7 (10-20); Bilirubin,Total 0.5 mg/dl (0.2-1.0); Calcium 9.1 mg/dl (8.5-10.1); Creatinine Clr Calc Pharmacy 61.5 ml/min; Est GFR (African American) 89.7 ml/min; Est GFR (Non-African American) 77.4 ml/min; Globulin 2.4 gm/dl (2.5-4.0); Potassium 4.4 mmol/L (3.5-5.1); Total Protein 6.2 gm/dl (6.0-8.3)
[2021-09-16] MEDS ORDERED: LIDOCAINE 1%/EPINEPHRINE 1:100,000 50 ML VIAL INFIL ONE (15:14)
[2021-09-16] MEDS ORDERED: XYLOCAINE 1%/SOD BICARB 20 ML VIAL INFIL ONE (15:14)
--- NOTE | 2021-09-16 16:50 | Electrocardiogram Report ---
Test Reason : Blood Pressure : / mmHG Vent. Rate : 055 BPM Atrial Rate : 055 BPM P-R Int : 218 ms QRS Dur : 110 ms QT Int : 446 ms P-R-T Axes : 083 041 050 degrees QTc Int : 426 ms Sinus bradycardia with 1st degree A-V block Anteroseptal infarct , age undetermined Abnormal ECG When compared with ECG of 09-JUN-2020 08:02, Premature ventricular complexes are no longer Present Anteroseptal infarct is now Present T wave inversion no longer evident in Inferior leads T wave inversion no longer evident in Anterolateral leads QT has shortened Confirmed by Amol Ward ([id number]) on 09/16/2021 4:50:00 PM Referred By: REFERRED SELF Confirmed By:Chandler Ward
[2021-09-16] MEDS ORDERED: MoRPHine SULFATE 2 MG/ML CARP ONE (17:27)
[2021-09-16] MEDS ORDERED: GELATIN SPONGE 12-7MM ONE ×2 (17:33→17:40)
[2021-09-16] MEDS ORDERED: METOPROLOL TARTRATE 1 MG/ML VIAL IV ONE (17:37)
[2021-09-16] MEDS ORDERED: METOPROLOL TARTRATE 1 MG/ML VIAL IV STA (17:38)
--- NOTE | 2021-09-16 18:00 | History & Physical Report ---
Date of Service September 16, 2021 Assessment & Plan (1) Traumatic hematoma of forehead: Plan: Active bleeding, unable to be controlled with bedside interventions. Plan to take the patient to the OR for wider exploration. Risk reviewed with patient and consent signed. Risks include, but not limited too, bleeding, infection, scar, delayed wound healing. Patient to receive Kcentra. Plan: Bleeding was stopped at time of presentation to OR. Packing was removed and bleeding resumed. Vessel unable to be visualized, could not be controlled with cautery, gelfoam, quickclot. I personally saw and examined this patient and agree with the assessment and plan. Plan is for OR tonight for further exploration. History of Present Illness Primary Care Provider: MD Sanford Gonzales is being seen today in the ED for follow-up of bleeding that occurred during evacuation of a hematoma in the office earlier today. Bleeding was controlled while in ED when wound was packed with quick clot. Upon removal of packing, pulsatile bleeding occurred. Bleeding was uncontrolled bedside with cautery, TXA, gel foam. His vitals remain stable, BP elevated to 175/82. He is anticoagulated with Plavix and Eliquis. Allergies Allergy/AdvReac Type Severity Reaction Status Date / Time lisinopril Allergy Severe FACE SWELLS Verified 09/16/21 14:46 Home Medications Medication Instructions Recorded Confirmed Type pindolol 5 mg tablet 5 mg PO BID #180 tab 08/06/20 09/16/21 Rx meclizine 25 mg tablet 25 mg PO QID PRN #30 tab 10/02/20 09/16/21 Rx ketoconazole 2 % topical cream 1 applic TOPICAL BID PRN #60 g 10/09/20 09/16/21 Rx dicyclomine 10 mg capsule 10 mg PO QAM #90 cap 11/23/20 09/16/21 Rx losartan 100 mg tablet 100 mg PO QAM #90 tab 11/23/20 09/16/21 Rx nitroglycerin 0.4 mg sublingual 0.4 mg SUBLINGUAL UD PRN #25 tab 02/01/21 09/16/21 Rx tablet (Nitrostat) glipizide 5 mg tablet, extended 5 mg PO BID 90 Days #180 tab 03/25/21 09/16/21 Rx release 24 hr clopidogrel 75 mg tablet 75 mg PO QAM 90 Days #90 tab 05/21/21 09/16/21 Rx apixaban 2.5 mg tablet (Eliquis) 2.5 mg PO BID #60 tab 05/31/21 09/16/21 Rx simvastatin 40 mg tablet (Zocor) 40 mg PO HS #90 tab 05/31/21 09/16/21 Rx omeprazole 20 mg capsule,delayed 20 mg PO HS cap 07/15/21 09/16/21 History release indapamide 1.25 mg tablet 1.25 mg PO DAILY #90 tab 08/05/21 09/16/21 Rx allopurinol 300 mg tablet 300 mg PO DAILY 08/23/21 09/16/21 History levothyroxine 150 mcg tablet 150 mcg PO DAILY #90 tab 09/03/21 09/16/21 Rx metformin 500 mg tablet,extended 1,000 mg PO BIDM 09/16/21 09/16/21 History release 24 hr multivitamin 1 tab PO QAM 09/16/21 09/16/21 History Past Med/Surg History Medical History Coronary artery disease, occlusive DVT (deep venous thrombosis) Gout, joint Hearing loss Hypercholesterolemia Hypertension Hypothyroidism NSTEMI (non-ST elevated myocardial infarction) 06/07/2020--had heart cath @ [facility] with 3 KUSUM placed--follows with Dr. Wheatley Type 2 diabetes mellitus Surgical History History of cardiac cath 06/08/2020 @ [facility] with 3 KUSUM stents placed "ANGIOPLASTY" X2 - 1994, 1996 1996 - STENT X 1 History of cataract surgery bilt History of colonoscopy History of heart artery stent X 1 - 1996 History of left knee surgery X3 History of shoulder surgery RIGHT/DISLOCATED Stented coronary artery 06/08/2020 x3 KUSUM placed @ [facility]---PCI of proximal to mid LAD with 2 overlapping drug-eluting stents PCI of distal LAD with additional drug-eluting stent Family History Mother Heart disease Hypertension Myocardial infarction Father Heart disease Hypertension Myocardial infarction Other No family history of adverse response to anesthesia Denies family history of Ovarian cancer Prostate cancer Breast cancer Colorectal cancer Social History Smoking Status: Never smoker packs per day: 1; Cigarettes Per Day: 45 YEARS AGO; Second Hand Exposure: Yes; Hx Alcohol Use: Yes Alcohol type: wine Alcohol Intake Frequency: Monthly or Less Hx Substance Use: No Preferred Language: Haitian Communication Ability: Effective Visual Impairment: No Limitations Hearing Ability: Use of Hearing Aid Document Control Coordinator Required: No Beliefs That Will Affect Care: None marital status: Current Living Situation: Spouse 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 Feels Safe at Home: Yes Childhood Exposure to Second-Hand Smoke: Yes Dental Care, Regularly: Yes Physical Activity Frequency: Does not Exercise Seatbelt Use: always Sunscreen Use: No Assistive Devices: Denture - Upper, Denture - Lower, Glasses and Hearing Aid - Bilateral Review of Systems no fever and no chills as per Subjective / HPI; no cough and no dyspnea Physical Exam Physical Exam: open wound left forehead with active pulsatile bleeding, friable and macerated muscle Constitutional: well developed and well nourished; no acute distress Respiratory: normal respiratory effort; no respiratory distress and no labored breathing Cardiovascular: RRR, no murmur, no edema Gastrointestinal (Abdomen): normal bowel sounds, soft, nontender, no hepatosplenomegaly Results & Data ([facility]) Vital Signs (Past 12 Hours) Vital Signs Pulse Pulse Resp BP BP Pulse Ox 09/16/21 12:06 57 L 57 L 19 166/82 H 97 09/16/21 11:51 56 L 17 166/83 H 96 Coding Level of Care Code None Diagnoses Traumatic hematoma of forehead S00.83XA
[2021-09-16] MEDS ORDERED: fentaNYL citrate 100 MCG/2 ML VIAL ONE (18:05)
[2021-09-16] MEDS ORDERED: KCENTRA (500unit vial) 2000 units IVP IV SCH (18:15)
--- NOTE | 2021-09-16 18:15 | History & Physical Report ---
Date of Service September 16, 2021 Assessment & Plan (1) Post-operative haemorrhage: Plan: Secondary to persistent bleeding from previous laceration from a fall that he sustained on 08/23 Also in the setting of taking apixaban and clopidogrel Remains hemodynamically stable, hemoglobin 10.6 on arrival then dropped to 10.2 -Admit to medical floor telemetry -Taken urgently to the OR with plastic surgery on the evening of 09/16 for washout and she tied off an arterial vessel in the frontalis muscle -Pressure dressing applied-only to be removed by surgery -Follow CBC -Postoperative care as per surgery -Continue IV Ancef for prophylaxis -Hold home Plavix and apixaban (2) Acute blood loss anemia: Plan: As above, baseline hemoglobin 11-12, now dropped to 10.2 with bleeding Follow CBC again in the morning (3) Hyponatremia: Plan: Sodium mildly low here at 131 in the setting of blood loss anemia, also on indapamide Okay to continue indapamide Follow BMP in the morning (4) Hypertension: Plan: Blood pressures are elevated here Okay to continue home indapamide, losartan, and substitute propranolol for pindolol (5) Hypercholesterolemia: Plan: Continue home statin (6) Type 2 diabetes mellitus: Plan: Most recent hemoglobin A1c well controlled at 6.4% Hold home Metformin, glipizide Accu-Cheks before meals and at bedtime, NovoLog supplemental insulin ADA diet (7) DVT (deep venous thrombosis): Plan: With a history of lower extremity and upper extremity DVT while on apixaban in 2020 Seen by hematology-unknown cause why he all of a sudden is hypercoagulable, no evidence of underlying cancer as per hematology notes Was treated with 6 months of full dose apixaban, now remains on apixaban 2.5 mg p.o. twice daily for prophylaxis -Holding Eliquis for acute hemorrhage as above -Consider IVC filter given extensive bleeding issues (8) CAD (coronary artery disease): Plan: With a history of multiple drug-eluting stents in the LAD in 2019 No ongoing chest pain at this time Was on dual antiplatelet therapy with aspirin and Plavix until he began having issues with this forehead wound and the aspirin was discontinued at recommendation of his PCP in conjunction with his bean sorter approximately 1 week ago -We will now hold Plavix temporarily, but this will need to be restarted in the near future given multiple drug-eluting stents in place -Continue statin, beta-olayinka, losartan (9) Gout: Plan: No acute issues Continue allopurinol for prophylaxis (10) Chronic diarrhea: Plan: Continue Bentyl daily (11) GERD (gastroesophageal reflux disease): Plan: Continue pantoprazole daily (12) Hypothyroidism: Plan: Continue levothyroxine TSH normal in 04/2021 Plan: DVT prophylaxis-holding apixaban for now, ordered SCDs Disposition-admit to medical floor with telemetry Full code History of Present Illness Chief Complaint: Bleeding from forehead wound Primary Care Provider: Matteo Reeder MD This patient is an 85-year-old male with history of CAD status post multiple KUSUM, DM 2, 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 He initially slipped and fell on some ice and hit his head on 08/23/2021. He had sutures placed at that time for laceration in the left supraorbital region. He returned the following day to the ER for recurrent bleeding and had another suture placed at that time. He was then seen by his PCP and had the sutures removed on 09/03/2021. He was seen again on 09/12 by his PCP and referred to plastic surgery for a persistent symptomatic hematoma of the forehead. Meanwhile, his dual antiplatelet therapy was reduced down to Plavix alone after being seen by his PCP, as he is also already on apixaban for recurrent DVT/VTE prophylaxis. His last dose of Eliquis and Plavix were this morning. When he saw the plastic surgery PA in the clinic today, the hematoma was attempted to be evacuated and he had acute pulsatile bleeding that was deemed to be arterial in nature from his forehead. Paramedics were called and he was transported to the ER. I discussed his case with the plastic surgeon in the ER as well as with Dr. Aviles regarding administration of Kcentra just prior to patient being taken to the OR for washout and tying off of the bleeding vessel in his forehead. He will be admitted to the hospitalist service due to his complex comorbidities for acute blood loss anemia and acute hemorrhage from the laceration on his forehead. Allergies Allergy/AdvReac Type Severity Reaction Status Date / Time lisinopril Allergy Severe FACE SWELLS Verified 09/16/21 14:46 Home Medications Medication Instructions Recorded Confirmed Type pindolol 5 mg tablet 5 mg PO BID #180 tab 08/06/20 09/16/21 Rx meclizine 25 mg tablet 25 mg PO QID PRN #30 tab 10/02/20 09/16/21 Rx ketoconazole 2 % topical cream 1 applic TOPICAL BID PRN #60 g 10/09/20 09/16/21 Rx dicyclomine 10 mg capsule 10 mg PO QAM #90 cap 11/23/20 09/16/21 Rx losartan 100 mg tablet 100 mg PO QAM #90 tab 11/23/20 09/16/21 Rx nitroglycerin 0.4 mg sublingual 0.4 mg SUBLINGUAL UD PRN #25 tab 02/01/21 09/16/21 Rx tablet (Nitrostat) glipizide 5 mg tablet, extended 5 mg PO BID 90 Days #180 tab 03/25/21 09/16/21 Rx release 24 hr clopidogrel 75 mg tablet 75 mg PO QAM 90 Days #90 tab 05/21/21 09/16/21 Rx apixaban 2.5 mg tablet (Eliquis) 2.5 mg PO BID #60 tab 05/31/21 09/16/21 Rx simvastatin 40 mg tablet (Zocor) 40 mg PO HS #90 tab 05/31/21 09/16/21 Rx omeprazole 20 mg capsule,delayed 20 mg PO HS cap 07/15/21 09/16/21 History release indapamide 1.25 mg tablet 1.25 mg PO DAILY #90 tab 08/05/21 09/16/21 Rx allopurinol 300 mg tablet 300 mg PO DAILY 08/23/21 09/16/21 History levothyroxine 150 mcg tablet 150 mcg PO DAILY #90 tab 09/03/21 09/16/21 Rx metformin 500 mg tablet,extended 1,000 mg PO BIDM 09/16/21 09/16/21 History release 24 hr multivitamin 1 tab PO QAM 09/16/21 09/16/21 History Past Med/Surg History Medical History BPPV (benign paroxysmal positional vertigo) Chronic diarrhea Coronary artery disease, occlusive DVT (deep venous thrombosis) GERD (gastroesophageal reflux disease) Gout Gout, joint Hearing loss Hypercholesterolemia Hypertension Hypothyroidism NSTEMI (non-ST elevated myocardial infarction) 06/07/2020--had heart cath @ [facility] with 3 KUSUM placed--follows with Dr. Wheatley Type 2 diabetes mellitus Surgical History History of cardiac cath 06/08/2020 @ [facility] with 3 KUSUM stents placed "ANGIOPLASTY" X2 - 1994, 1996 1996 - STENT X 1 History of cataract surgery bilt History of colonoscopy History of heart artery stent X 1 - 1996 History of left knee surgery X3 History of shoulder surgery RIGHT/DISLOCATED Stented coronary artery 06/08/2020 x3 KUSUM placed @ [facility]---PCI of proximal to mid LAD with 2 overlapping drug-eluting stents PCI of distal LAD with additional drug-eluting stent Family History Mother Heart disease Hypertension Myocardial infarction Father Heart disease Hypertension Myocardial infarction Other No family history of adverse response to anesthesia Denies family history of Ovarian cancer Prostate cancer Breast cancer Colorectal cancer Social History Smoking Status: Never smoker packs per day: 1; Cigarettes Per Day: 45 YEARS AGO; Second Hand Exposure: Yes; Hx Alcohol Use: Yes Alcohol type: wine Alcohol Intake Frequency: Monthly or Less Hx Substance Use: No Preferred Language: [place] Communication Ability: Effective Visual Impairment: No Limitations Hearing Ability: Use of Hearing Aid Print Shop Stenographer Required: No Beliefs That Will Affect Care: None marital status: Current Living Situation: Spouse 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 Other Information That Helps Us Care for You: No Feels Safe at Home: Yes Safety Concerns: Feels Safe At This Time Childhood Exposure to Second-Hand Smoke: Yes Dental Care, Regularly: Yes Physical Activity Frequency: Does not Exercise Seatbelt Use: always Sunscreen Use: No Assistive Devices: Denture - Upper, Denture - Lower, Glasses and Hearing Aid - Bilateral Review of Systems Review of Systems: All systems reviewed & are unremarkable except as noted in HPI & below Physical Exam Constitutional: WD/WN, vitals as above Eyes: + anicteric sclerae ENMT: external ear and nose normal, oropharynx normal Forehead with pressure dressing in place with bright red blood soaking through it Neck: trachea midline, no thyromegaly Respiratory: normal respiratory effort; no labored breathing and no cough Musculoskeletal: Extremities: extremities normal to inspection; no cyanosis and no clubbing Skin: no rashes, warm and dry Neurologic: moves all extremities and awake; no focal motor deficits Psychiatric: A+Ox3, euthymic affect Lymphatic: no lymphedema Results & Data Results & Data ([facility]) Vital Signs (Past 12 Hours) Vital Signs Pulse Pulse Resp BP BP Pulse Ox 09/16/21 18:04 175/84 H 09/16/21 12:06 57 L 57 L 19 166/82 H 97 09/16/21 11:51 56 L 17 166/83 H 96 Laboratory Results 09/16/21 09/16/21 09/16/21 Range/Units Unknown 20:36 11:52 WBC 9.76 (4.8-10.8) K/uL RBC 3.83 L (4.7-6.1) M/uL Hgb 10.2 L (14.0-18.0) g/dL Hct 32.1 L (42-52) % MCV 83.8 (80-100) fL MCH 26.6 (25-34) pg MCHC 31.8 L (32-36) g/dL RDW Std Deviation 47.7 H (36.4-46.3) fL RDW Coeff of Linnea 15.5 H (11.5-14.5) % Plt Count 211 (130-400) K/uL MPV 11.2 H (7.4-10.4) fL Immature Gran % (Auto) % Neut % (Auto) % Lymph % (Auto) % Union % (Auto) % Eos % (Auto) % Baso % (Auto) % Neut # (Auto) (1.4-6.5) K/uL Lymph # (Auto) (1.2-3.4) K/uL Union # (Auto) (0.11-0.59) K/uL Eos # (Auto) (0-0.5) K/uL Baso # (Auto) (0-0.2) K/uL Immature Gran # (Auto) (0.00-0.02) K/uL PT (9.0-12.0) Seconds INR (0.9-1.1) APTT (21.0-31.0) Seconds PTT Ratio Sodium (136-145) mmol/L Potassium (3.5-5.1) mmol/L Chloride (98-107) mmol/L Carbon Dioxide (21-32) mmol/L Anion Gap (3-11) BUN (6-23) mg/dl Creatinine (0.6-1.4) mg/dl Est Cr Clr Drug Dosing ml/min Est GFR ( Amer) ml/min Est GFR (Non-Af Amer) ml/min BUN/Creatinine Ratio (10-20) Glucose (70-99(Fasting)) mg/dl Calcium (8.5-10.1) mg/dl Total Bilirubin (0.2-1.0) mg/dl AST (13-39) U/L ALT (7-52) U/L Alkaline Phosphatase (34-104) U/L Total Protein (6.0-8.3) gm/dl Albumin (3.4-5.0) gm/dl Globulin (2.5-4.0) gm/dl Albumin/Globulin Ratio (0.9-2) SARS-CoV-2, RNA, NAAT NEGATIVE (NEGATIVE) Blood Type O Positive Antibody Screen NEGATIVE 09/16/21 09/16/21 09/16/21 Range/Units 11:52 11:52 11:52 WBC 9.45 (4.8-10.8) K/uL RBC 3.98 L (4.7-6.1) M/uL Hgb 10.6 L (14.0-18.0) g/dL Hct 33.1 L (42-52) % MCV 83.2 (80-100) fL MCH 26.6 (25-34) pg MCHC 32.0 (32-36) g/dL RDW Std Deviation 47.3 H (36.4-46.3) fL RDW Coeff of Linnea 15.5 H (11.5-14.5) % Plt Count 228 (130-400) K/uL MPV 12.0 H (7.4-10.4) fL Immature Gran % (Auto) 0.3 % Neut % (Auto) 65.9 % Lymph % (Auto) 19.8 % Union % (Auto) 9.5 % Eos % (Auto) 4.4 % Baso % (Auto) 0.1 % Neut # (Auto) 6.22 (1.4-6.5) K/uL Lymph # (Auto) 1.87 (1.2-3.4) K/uL Union # (Auto) 0.90 H (0.11-0.59) K/uL Eos # (Auto) 0.42 (0-0.5) K/uL Baso # (Auto) 0.01 (0-0.2) K/uL Immature Gran # (Auto) 0.03 H (0.00-0.02) K/uL PT 10.9 (9.0-12.0) Seconds INR 1.1 (0.9-1.1) APTT 32.8 H (21.0-31.0) Seconds PTT Ratio 1.2 Sodium 131 L (136-145) mmol/L Potassium 4.4 (3.5-5.1) mmol/L Chloride 97 L (98-107) mmol/L Carbon Dioxide 29 (21-32) mmol/L Anion Gap 5 (3-11) BUN 22 (6-23) mg/dl Creatinine 0.89 (0.6-1.4) mg/dl Est Cr Clr Drug Dosing 61.5 ml/min Est GFR ( Amer) 89.7 ml/min Est GFR (Non-Af Amer) 77.4 ml/min BUN/Creatinine Ratio 24.7 H (10-20) Glucose 131 H (70-99(Fasting)) mg/dl Calcium 9.1 (8.5-10.1) mg/dl Total Bilirubin 0.5 (0.2-1.0) mg/dl AST 13 (13-39) U/L ALT 13 (7-52) U/L Alkaline Phosphatase 41 (34-104) U/L Total Protein 6.2 (6.0-8.3) gm/dl Albumin 3.8 (3.4-5.0) gm/dl Globulin 2.4 L (2.5-4.0) gm/dl Albumin/Globulin Ratio 1.6 (0.9-2) SARS-CoV-2, RNA, NAAT (NEGATIVE) Blood Type Antibody Screen Code Status & VTE Plan Code Status Full code VTE Prophylaxis Plan VTE Prophylaxis will be ordered: Yes PG Care Time/CCT Total # of Minutes Spent Total Time Spent with Patient: Total time spent is greater than 50% in coordination of care (as documented) at patient's floor/unit and/or counseling patient: Coding Level of Care Code 10571 Initial Inpt Care Lvl 3 Diagnoses Post-operative haemorrhage L76.21 Procedure type: dermatologic Surgical complication system/body Area: skin Hypothyroidism E03.9 Hypertension I10 Hypercholesterolemia E78.00 Type 2 diabetes mellitus E11.9 DVT (deep venous thrombosis) I82.409 CAD (coronary artery disease) I25.10 Gout M10.9 Chronic diarrhea K52.9 GERD (gastroesophageal reflux disease) K21.9 Acute blood loss anemia D62 Hyponatremia E87.1 (1) Post-operative haemorrhage Procedure type: dermatologic Surgical complication system/body Area: skin Qualified Code(s): L76.21 - Postprocedural hemorrhage of skin and subcutaneous tissue following a dermatologic procedure
[2021-09-16] MEDS ORDERED: PROPOFOL IV EMULSION 10 MG/ML 20 ML VIAL IV ONE ×2 (18:29→19:18)
[2021-09-16] MEDS ORDERED: ceFAZolin 330 MG/ML 1 GM VIAL ONE (18:29)
[2021-09-16] MEDS ORDERED: ROCURONIUM BROMIDE 10 MG/ML 5 ML VIAL IV ONE (18:29)
[2021-09-16] MEDS ORDERED: SUCCINYLCHOLINE CHLORIDE 20 MG/ML 10 ML VIAL IV ONE (18:29)
[2021-09-16] MEDS ORDERED: LIDOCAINE 2% 2 ML VIAL/AMP(20MG/ML) INFIL ONE (18:29)
--- NOTE | 2021-09-16 18:34 | Anesthesiology Consultation ---
Date of Service September 16, 2021 Assessment & Plan Chart Review Chart Review: Acceptable Risk for Surgery Consults Requested none ASA [id number] Proposed Anesthesia Anesthesia Type: General Risk / Benefits Reviewed With: PT / POA / Parent / Guardian, Accepts Plan and Informed Consent Obtained Additional Notes emergency surgery, preop done post induction. History Surgery Operation Date: 09/16/21 17:00 Proposed Procedures p Evacuation Hematoma(Not Applicable) - Sanford Melgar MD, FACS Height/Weight Height: 5 ft 10 in Weight: 86 kg Allergies Allergy/AdvReac Type Severity Reaction Status Date / Time lisinopril Allergy Severe FACE SWELLS Verified 09/16/21 14:46 Medications Home Medications Medication Instructions Recorded Confirmed Last Taken pindolol 5 mg tablet 5 mg PO BID #180 tab 08/06/20 09/16/21 09/16/21 meclizine 25 mg tablet 25 mg PO QID PRN #30 tab 10/02/20 09/16/21 Unknown ketoconazole 2 % topical cream 1 applic TOPICAL BID PRN #60 g 10/09/20 09/16/21 Unknown dicyclomine 10 mg capsule 10 mg PO QAM #90 cap 11/23/20 09/16/21 09/16/21 losartan 100 mg tablet 100 mg PO QAM #90 tab 11/23/20 09/16/21 09/16/21 nitroglycerin 0.4 mg sublingual 0.4 mg SUBLINGUAL UD PRN #25 tab 02/01/21 09/16/21 Unknown tablet (Nitrostat) glipizide 5 mg tablet, extended 5 mg PO BID 90 Days #180 tab 03/25/21 09/16/21 09/16/21 release 24 hr clopidogrel 75 mg tablet 75 mg PO QAM 90 Days #90 tab 05/21/21 09/16/21 09/16/21 apixaban 2.5 mg tablet (Eliquis) 2.5 mg PO BID #60 tab 05/31/21 09/16/21 09/16/21 simvastatin 40 mg tablet (Zocor) 40 mg PO HS #90 tab 05/31/21 09/16/21 09/15/21 omeprazole 20 mg capsule,delayed 20 mg PO HS cap 07/15/21 09/16/21 09/15/21 release indapamide 1.25 mg tablet 1.25 mg PO DAILY #90 tab 08/05/21 09/16/21 09/16/21 allopurinol 300 mg tablet 300 mg PO DAILY 08/23/21 09/16/21 09/16/21 levothyroxine 150 mcg tablet 150 mcg PO DAILY #90 tab 09/03/21 09/16/21 09/16/21 metformin 500 mg tablet,extended 1,000 mg PO BIDM 09/16/21 09/16/21 09/16/21 release 24 hr multivitamin 1 tab PO QAM 09/16/21 09/16/21 09/16/21 NPO Date Last Intake of Fluids: 09/16/21 Time Last Intake of Fluids: 08:30 Date Last Intake of Solids: 09/16/21 Time Last Intake of Solids: 08:30 Past Medical History Medical History Coronary artery disease, occlusive DVT (deep venous thrombosis) Gout, joint Hearing loss Hypercholesterolemia Hypertension Hypothyroidism NSTEMI (non-ST elevated myocardial infarction) 06/07/2020--had heart cath @ [facility] with 3 KUSUM placed--follows with Dr. Wheatley Type 2 diabetes mellitus Exercise / Class Metabolic Activity II 4-5 Yardwork/Stairs/Walk up hill Past Family History Family History Mother Heart disease Hypertension Myocardial infarction Father Heart disease Hypertension Myocardial infarction Other No family history of adverse response to anesthesia Denies family history of Ovarian cancer Prostate cancer Breast cancer Colorectal cancer Past Surgical History Surgical History History of cardiac cath 06/08/2020 @ [facility] with 3 KUSUM stents placed "ANGIOPLASTY" X2 - 1994, 1996 1997 - STENT X 1 History of cataract surgery bilt History of colonoscopy History of heart artery stent X 1 - 1996 History of left knee surgery X3 History of shoulder surgery RIGHT/DISLOCATED Stented coronary artery 06/08/2020 x3 KUSUM placed @ [facility]---PCI of proximal to mid LAD with 2 overlapping drug-eluting stents PCI of distal LAD with additional drug-eluting stent Past Anesthesia History No Hx of Anesthesia Complications and No Family Hx of Anesthesia Complications History of PONV No Hx of PONV and No Hx of Motion Sickness Social History Smoking Status: Never smoker tobacco type: cigarettes Smoking cigarettes per day: 45 YEARS AGO Hx Alcohol Use: Yes Alcohol type: wine alcohol intake frequency: other Hx Substance Use: No substance use type: does not use Physical Exam Vital Signs Last Vital Signs Pulse 67 09/16/21 18:05 Resp 14 09/16/21 18:05 BP 167/89 H 09/16/21 18:05 Pulse Ox 95 09/16/21 16:00 ENMT Mouth: + dentures; no TMJ abnormality Thyromental Distance: > or= 3.5 Finger Breadths Mallampati Class: II Neck normal visual inspection and trachea midline; neck extension not limited Respiratory normal respiratory effort Auscultation: lungs clear to auscultation bilaterally Cardiovascular Rate/Rhythm: regular rate and regular rhythm Heart Sounds: no murmur Musculoskeletal Spine: normal cervical ROM Extremities: full ROM of extremities Neurologic moves all extremities Psychiatric Orientation: alert and oriented x 3 Testing Laboratory Results 09/16/21 11:52 09/16/21 11:52 PT 10.9 Seconds (9.0-12.0) 09/16/21 11:52 INR 1.1 (0.9-1.1) 09/16/21 11:52 APTT 32.8 Seconds (21.0-31.0) H 09/16/21 11:52
[2021-09-16] MEDS ORDERED: fentaNYL citrate 100 MCG/2 ML VIAL IV PRN (18:37)
[2021-09-16] MEDS ORDERED: ePHEDrine sulfate 50 MG/ML AMP IV PRN (18:37)
[2021-09-16] MEDS ORDERED: MEPERIDINE HCL 25 MG/ML CARP/VIAL IV PRN (18:37)
[2021-09-16] MEDS ORDERED: MoRPHine SULFATE 10 MG/ML CARP/VIAL IV PRN (18:37)
[2021-09-16] MEDS ORDERED: ATROPINE SULFATE 0.1 MG/ML 10ML SYR IV PRN (18:37)
[2021-09-16] MEDS ORDERED: ONDANSETRON INJ 2 MG/ML 2 ML VIAL IV PRN ×2 (18:37→20:26)
[2021-09-16] MEDS ORDERED: ONDANSETRON INJ 2 MG/ML 2 ML VIAL ONE (19:14)
[2021-09-16] MEDS ORDERED: ePHEDrine sulfate 50 MG/ML AMP ONE (19:14)
[2021-09-16] MEDS ORDERED: DEXAMETHASONE SOD INJ 4 MG/ML VIAL ONE (19:14)
[2021-09-16] MEDS ORDERED: PHENYLEPHRINE HCL 10 MG/ML VIAL ONE (19:14)
--- NOTE | 2021-09-16 19:30 | Post Operative Brief Note ---
PG Immediate Post Op with CF Date of Surgery September 16, 2021 Pre & Post Diagnosis Operation Date: 09/16/21 17:00 Pre-Op Diagnosis: Traumatic hematoma of forehead Post-Op Diagnosis: Traumatic hematoma of forehead I identified the patient and participated in the time-out.: Yes Procedure Operation Date: 09/16/21 17:00 Actual Procedures p Evacuation of Hematoma, Controlled Bleeding of Left Forehead(Not Applicable) - Vilma Dale MD Surgeon Vilma Dale MD Church Musician Sanford Melgar MD, Chantelle Espinoza PA-C Estimated Blood Loss 15 Findings Consistent with Post-Op Diagnosis acute arterial bleeding left forehead within frontalis muscle Specimens Specimen Description: None per surgeon Anesthesia Type General Complications none Disposition Disposition: Recovery Room
[2021-09-16] MEDS: LABETALOL HCL IV 5 MG/ML 20ML IV PRN ×2 (19:40→19:45)
[2021-09-16] MEDS ORDERED: oxyCODONE/ACETAMINOPHEN 5mg/325mg TAB PO PRN ×4 (19:41→20:26)
[2021-09-16] MEDS ORDERED: ACETAMINOPHEN 325 MG TAB PO PRN ×2 (19:41→20:26)
[2021-09-16] MEDS ORDERED: MoRPHine SULFATE 4 MG/ML 1 ML CARP\\VIAL IV PRN ×2 (19:41→20:26)
--- NOTE | 2021-09-16 20:03 | Anesthesiology Progress Note ---
Date of Service September 16, 2021 Anesthesia Post Procedure Vital Signs Vital Signs: Temp Pulse Pulse Resp BP BP Pulse Ox 09/16/21 19:55 36.6 C 73 16 159/83 H 95 09/16/21 19:45 76 16 159/86 H 96 09/16/21 19:35 36.4 C L 69 16 161/90 H 97 09/16/21 18:05 67 14 167/89 H 09/16/21 18:04 175/84 H 09/16/21 18:00 68 15 09/16/21 17:30 70 12 09/16/21 17:00 70 20 09/16/21 16:30 71 18 09/16/21 16:00 72 17 95 09/16/21 15:30 60 17 95 09/16/21 15:00 63 14 95 09/16/21 14:30 57 L 18 95 09/16/21 14:18 57 L 19 175/84 H 96 09/16/21 14:00 56 L 17 94 09/16/21 13:30 67 18 94 09/16/21 13:00 57 L 19 94 09/16/21 12:44 55 L 17 94 09/16/21 12:06 57 L 57 L 19 166/82 H 97 09/16/21 12:00 55 L 12 97 09/16/21 11:53 55 L 16 96 09/16/21 11:51 56 L 17 166/83 H 96 Pain Intensity Left Head: Pain Intensity: 8 Transfer of Care Handoff Completed per policy Notes Mental Status: alert / awake / arousable and participated in evaluation Patient Amnestic to Procedure: Yes Nausea / Vomiting: adequately controlled Pain: adequately controlled Airway Patency, RR, SpO2: stable & adequate BP & HR: stable & adequate Hydration State: stable & adequate Anesthetic Complications: no major complications apparent and Pt Satisfied with anesthetic care
--- NOTE | 2021-09-16 20:11 | Operative Report ---
PG Post Operative Report Pre & Post Diagnosis Operation Date: 09/16/21 17:00 Pre-Op Diagnosis: Traumatic hematoma of forehead Post-Op Diagnosis: Traumatic hematoma of forehead I identified the patient and participated in the time-out.: Yes Procedure Operation Date: 09/16/21 17:00 Actual Procedures p Evacuation of Hematoma, Controlled Bleeding of Left Forehead(Not Applicable) - Vilma Dale MD Surgeon Vilma Dale MD Pulling Unit Floorhand Sanford Melgar MD, Chantelle Espinoza PA-C Estimated Blood Loss 15 Findings Consistent with Post-Op Diagnosis active arterial bleeding left forehead Specimens none Anesthesia Type General Complications none Disposition Disposition: Recovery Room Indications Uncontrolled bleeding left forehead, hematoma, on Eliquis and Plavix Description of Procedure Risk, benefits, alternatives of procedure explained the patient and his agreed and signed consent. He was brought to the operating room on an emergent basis, placed under general anesthesia without incident. Surgical site was prepped and draped sterilely. Timeout procedure was performed. Gelfoam had been placed in the wound in the emergency department and this was removed. The wound began to bleed again but was controlled with manual pressure.Due to poor visualization of the bleeding vessel, I did extend the incision medially and laterally, ellipsing a small amount of skin to improve the final appearance of the scar and provide better visibility. Pressure was held above the brow to compress the bleeding vessel. I then created a skin flap using electrocautery to dissect between the frontalis muscle and subcutaneous tissue inferiorly towards the brow to provide better visualization. Frontalis muscle fibers were stained and infiltrated with hematoma and oozing. The wound was irrigated with saline and I was able to visualize a lacerated bleeding vessel deep to frontalis muscle (likely superficial temporal artery), within the wound bed. The vessel was clamped using a hemostat and tied using 4-0 [id number] Vicryl suture to ligate vessel. Residual hematoma was evacuated and the wound was then irrigated. I then reapproximated frontalis muscle using 4-0 Vicryl interrupted sutures. Wound edges were freshened using a 15 blade scalpel and the skin was reapproximated using 5-0 Prolene interrupted cutaneous suture. Total wound closure length was 4 cm. Prior to placing the dressing leaving the operating room, the patient was lightened up from anesthesia and observed for any reexpansion of hematoma prior to placing dressings. Wound was dressed using Xeroform, pressure dressing, Kerlix and an Junior wrap. Procedure was tolerated well. Patient was awakened and transferred to room in satisfactory condition. I attest to the content of the Intraoperative Record and any orders documented therein. Any exceptions are noted below.
[2021-09-16] MEDS ORDERED: NITROGLYCERIN SL 0.4 MG/TAB TAB SL PRN (20:26)
[2021-09-16] MEDS ORDERED: ceFAZolin 2000MG 2,000 MG/15 ML SYR IV SCH (20:26)
[2021-09-16] MEDS ORDERED: MoRPHine SULFATE 2 MG/ML CARP IV PRN (20:26)
[2021-09-16] MEDS ORDERED: MECLIZINE HCL 25 MG TAB PO PRN (20:39)
[2021-09-16 20:46] LABS: Hematocrit (blood only) 32.1 % (42-52); Hemoglobin 10.2 g/dL (14.0-18.0); Mean Corpuscular Hemoglobin 26.6 pg (25-34); Mean Corpuscular Hgb Conc 31.8 g/dL (32-36); Mean Corpuscular Volume 83.8 fL (80-100); Mean Platelet Volume 11.2 fL (7.4-10.4); Platelet Count 211 K/uL (130-400); RDW Coefficient of Variation 15.5 % (11.5-14.5); RDW Standard Deviation 47.7 fL (36.4-46.3); Red Blood Count 3.83 M/uL (4.7-6.1); White Blood Count 9.76 K/uL (4.8-10.8)
[2021-09-16] MEDS ORDERED: PINDOLOL 5 MG PO SCH (21:00)
[2021-09-16] MEDS ORDERED: glipiZIDE ER 2.5 MG TABCR PO SCH (21:00)
[2021-09-16] MEDS: MoRPHine SULFATE 2 MG/ML CARP IV PRN (21:10)
[2021-09-16] MEDS: SIMVASTATIN 40 MG TAB PO SCH (21:50)
[2021-09-16] MEDS: PANTOprazole 40 MG TAB PO SCH (21:50)
[2021-09-16] MEDS: PROPRANOLOL HCL 10 MG TAB PO SCH (21:50)
[2021-09-17] MEDS: MoRPHine SULFATE 2 MG/ML CARP IV PRN (00:07)
[2021-09-17] MEDS ORDERED: COUGH DROP (SUGAR FREE) LOZ 24 LOZ/1 BOX BUCCAL PRN (01:19)
[2021-09-17] MEDS: ceFAZolin 2000MG 2,000 MG/15 ML SYR IV SCH ×2 (01:45→10:00)
[2021-09-17] MEDS: LEVOTHYROXINE SODIUM 150 MCG TABLET PO SCH (06:05)
[2021-09-17 08:13] LABS: Basophils # (auto) 0.01 K/uL (0-0.2); Basophils % (auto) 0.1 %; Eosinophils # (auto) 0.03 K/uL (0-0.5); Eosinophils % (auto) 0.3 %; Hematocrit (blood only) 32.1 % (42-52); Hemoglobin 10.3 g/dL (14.0-18.0); Immature Granulocytes # (auto) 0.03 K/uL (0.00-0.02); Immature Granulocytes % (auto) 0.3 %; Lymphocytes # (auto) 1.49 K/uL (1.2-3.4); Mean Corpuscular Hemoglobin 26.6 pg (25-34); Mean Corpuscular Hgb Conc 32.1 g/dL (32-36); Mean Corpuscular Volume 82.9 fL (80-100); Mean Platelet Volume 11.2 fL (7.4-10.4); Monocytes % (auto) 9.1 %; Neutrophils # (auto) 6.42 K/uL (1.4-6.5); Neutrophils % (auto) 73.2 %; Platelet Count 230 K/uL (130-400); RDW Coefficient of Variation 15.5 % (11.5-14.5); RDW Standard Deviation 47.1 fL (36.4-46.3); Red Blood Count 3.87 M/uL (4.7-6.1); White Blood Count 8.78 K/uL (4.8-10.8)
[2021-09-17 08:34] LABS: BUN Creatinine Ratio 23.4 (10-20); Calcium 8.6 mg/dl (8.5-10.1); Creatinine Clr Calc Pharmacy 58.2 ml/min; Est GFR (African American) 84.7 ml/min; Est GFR (Non-African American) 73.1 ml/min; Magnesium 1.3 mg/dl (1.7-2.4); Potassium 4.4 mmol/L (3.5-5.1)
[2021-09-17] MEDS: LOSARTAN POTASSIUM 50 MG TAB PO SCH (08:42)
[2021-09-17] MEDS: DICYCLOMINE HCL 10 MG CAP PO SCH (08:42)
[2021-09-17] MEDS: MULTIVITAMIN TAB PO SCH (08:42)
[2021-09-17] MEDS: INDAPAMIDE 1.25 MG TAB PO SCH (08:42)
[2021-09-17] MEDS: allopurinoL 300 MG TAB PO SCH (08:42)
[2021-09-17] MEDS: PROPRANOLOL HCL 10 MG TAB PO SCH ×2 (08:43→20:28)
[2021-09-17] MEDS ORDERED: CLOPIDOGREL BISULFATE 75 MG TAB PO SCH (09:00)
--- NOTE | 2021-09-17 09:15 | Surgery Progress Note ---
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 This possibility was discussed with the patient. Discussed this would be of importance because there is a possibility of recurrence. If this would occur, imaging would be required prior to any intervention, with possible resection of segment of proximal aspect of the artery. He is stable for discharge from my perspective. He should follow-up with his primary care physician regarding any adjustments to his blood thinners and blood pressure medications. He should follow-up in my office on Thursday. Dressings may remain intact until that time. He will receive further wound care instructions on Thursday. Admission and Anticipated Discharge Date Admission Date: September 16, 2021 Subjective POD#1 s/p ligation of bleeding vessel left forehead. Pain controlled with no further bleeding. Dressing was removed by nursing overnight. Denies headache, vision issues. I spoke with the patient further about prior trauma and presenting symptoms. He described a painful mass of the left forehead, not increasing in size but did not decrease at all in the month following initial injury. Initial laceration was actually closer to left orbit and above the brow, not at the site of the hematoma, but he did note a scab or abrasion over the top of the mass. Physical Exam Physical Exam: Optifoam dressing is in place. No drainage noted on the dressing, no further bleeding apparent. There does appear to be some mild weakness of the left brow, swelling of the left upper eyelid with some mild ptosis. Results & Data ([facility]) Vital Signs (Past 12 Hours) Vital Signs Temp Pulse Pulse Resp BP Pulse Ox 09/17/21 08:03 98.4 F 68 18 105/55 L 93 09/17/21 07:57 68 09/17/21 03:07 98.2 F 72 18 100/63 92 09/17/21 00:58 98.4 F 75 18 159/89 H 90 09/16/21 23:13 98.4 F 72 18 163/76 H 91 09/16/21 22:18 67 PG Care Time/CCT Total # of Minutes Spent Total Time Spent with Patient: Total time spent is greater than 50% in coordination of care (as documented) at patient's floor/unit and/or counseling patient: Coding Level of Care Code None Diagnoses Traumatic hematoma of forehead S00.83XA
[2021-09-17] MEDS: ACETAMINOPHEN 325 MG TAB PO PRN ×2 (12:02→20:40)
[2021-09-17] MEDS ORDERED: PHENAZOPYRIDINE HCL 200 MG TAB PO PRN (14:54)
[2021-09-17] MEDS ORDERED: PHENAZOPYRIDINE HCL 200 MG TAB PO STA (14:54)
[2021-09-17] MEDS ORDERED: MAGNESIUM SULFATE / D5W 1 GM/100 ML BAG IV ONE (15:45)
[2021-09-17] MEDS: SIMVASTATIN 40 MG TAB PO SCH (20:28)
[2021-09-17] MEDS: PANTOprazole 40 MG TAB PO SCH (20:29)
--- NOTE | 2021-09-17 20:43 | Hospitalist Progress Note ---
Date of Service September 17, 2021 Assessment & Plan (1) Post-operative haemorrhage: Plan: Secondary to persistent bleeding from previous laceration from a fall that he sustained on 08/23 Also in the setting of taking apixaban and clopidogrel Remains hemodynamically stable, hemoglobin 10.6 on arrival then dropped to 10.2 -Admit to medical floor telemetry -Taken urgently to the OR with plastic surgery on the evening of 09/16 for washout and she tied off an arterial vessel in the frontalis muscle -Pressure dressing applied-only to be removed by surgery -Follow CBC -Postoperative care as per surgery -Continue IV Ancef for prophylaxis -Hold home Plavix and apixaban On 09/17 Patient tolerated procedure. Area is no longer bleeding. will monitor overnight. Patient is having penil pain, ordered pyridium. (2) Acute blood loss anemia: Plan: As above, baseline hemoglobin 11-12, now dropped to 10.2 with bleeding hemoglobin is stable (3) Hyponatremia: Plan: Sodium mildly low here at 131 in the setting of blood loss anemia, also on indapamide Okay to continue indapamide stable Hypomagnesemia Replaced (4) Hypertension: Plan: Blood pressures are elevated here Okay to continue home indapamide, losartan, and substitute propranolol for pindolol (5) Hypercholesterolemia: Plan: Continue home statin (6) Type 2 diabetes mellitus: Plan: Most recent hemoglobin A1c well controlled at 6.4% Hold home Metformin, glipizide Accu-Cheks before meals and at bedtime, NovoLog supplemental insulin ADA diet (7) DVT (deep venous thrombosis): Plan: With a history of lower extremity and upper extremity DVT while on apixaban in 2020 Seen by hematology-unknown cause why he all of a sudden is hypercoagulable, no evidence of underlying cancer as per hematology notes Was treated with 6 months of full dose apixaban, now remains on apixaban 2.5 mg p.o. 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 approximately 1 week ago -We will now hold Plavix temporarily, but this will need to be restarted in the near future given multiple drug-eluting stents in place -Continue statin, beta-olayinka, losartan (9) Gout: Plan: No acute issues Continue allopurinol for prophylaxis (10) Chronic diarrhea: Plan: Continue Bentyl daily (11) GERD (gastroesophageal reflux disease): Plan: Continue pantoprazole daily (12) Hypothyroidism: Plan: Continue levothyroxine TSH normal in 04/2021 Plan: DVT prophylaxis-holding apixaban for now, ordered SCDs Disposition-admit to medical floor with telemetry Full code Admission and Anticipated Discharge Date Admission Date: September 16, 2021 Subjective Patient reports feeling relatively well. He is worried about bleeding and is complaining of his throat being sore. He is also having penile pain. Review of Systems Review of Systems: All systems reviewed & are unremarkable except as noted in HPI & below Physical Exam Constitutional: WD/WN, vitals as above Eyes: + anicteric sclerae ENMT: external ear and nose normal, oropharynx normal Neck: trachea midline, no thyromegaly Respiratory: normal respiratory effort; no labored breathing and no cough Musculoskeletal: Extremities: extremities normal to inspection; no cyanosis and no clubbing Skin: no rashes, warm and dry Neurologic: moves all extremities and awake; no focal motor deficits Psychiatric: A+Ox3, euthymic affect Lymphatic: no lymphedema Results & Data Results & Data ([facility]) Vital Signs (Past 12 Hours) Vital Signs Temp Pulse Pulse Resp BP Pulse Ox 09/17/21 19:11 36.8 C 66 16 110/57 L 93 09/17/21 16:14 67 09/17/21 15:22 36.7 C 83 20 110/61 91 PG Care Time/CCT Total # of Minutes Spent Total Time Spent with Patient: Total time spent is greater than 50% in coordination of care (as documented) at patient's floor/unit and/or counseling patient: Coding Level of Care Code 11771 Subseq Hosp Care Lvl 2 Diagnoses Post-operative haemorrhage L76.21 Procedure type: dermatologic Surgical complication system/body Area: skin Acute blood loss anemia D62 Hyponatremia E87.1 Hypertension I10 Hypercholesterolemia E78.00 Type 2 diabetes mellitus E11.9 DVT (deep venous thrombosis) I82.409 CAD (coronary artery disease) I25.10 Gout M10.9 Chronic diarrhea K52.9 GERD (gastroesophageal reflux disease) K21.9 Hypothyroidism E03.9 (1) Post-operative haemorrhage Procedure type: dermatologic Surgical complication system/body Area: skin Qualified Code(s): L76.21 - Postprocedural hemorrhage of skin and subcutaneous tissue following a dermatologic procedure
[2021-09-17] MEDS: MAGNESIUM OXIDE 400 MG TAB PO SCH (22:21)
[2021-09-18] MEDS: LEVOTHYROXINE SODIUM 150 MCG TABLET PO SCH (06:15)
[2021-09-18] MEDS: ACETAMINOPHEN 325 MG TAB PO PRN (06:18)
[2021-09-18 07:20] LABS: Hematocrit (blood only) 31.8 % (42-52); Hemoglobin 10.3 g/dL (14.0-18.0); Mean Corpuscular Hemoglobin 26.6 pg (25-34); Mean Corpuscular Hgb Conc 32.4 g/dL (32-36); Mean Corpuscular Volume 82.2 fL (80-100); Mean Platelet Volume 10.9 fL (7.4-10.4); Platelet Count 235 K/uL (130-400); RDW Coefficient of Variation 15.6 % (11.5-14.5); RDW Standard Deviation 47.1 fL (36.4-46.3); Red Blood Count 3.87 M/uL (4.7-6.1); White Blood Count 9.46 K/uL (4.8-10.8)
[2021-09-18 07:34] VITALS: BP 116/68; TEMP 97.9; O2SAT 92
[2021-09-18 07:42] LABS: BUN Creatinine Ratio 23.8 (10-20); Creatinine Clr Calc Pharmacy 54.2 ml/min; Est GFR (African American) 77.7 ml/min; Magnesium 1.7 mg/dl (1.7-2.4); Potassium 3.6 mmol/L (3.5-5.1)
[2021-09-18] MEDS ORDERED: CLOPIDOGREL BISULFATE 75 MG TAB PO STA (08:04)
--- NOTE | 2021-09-18 08:05 | Discharge Summary ---
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 He initially slipped and fell on some ice and hit his head on 08/23/2021. He had sutures placed at that time for laceration in the left supraorbital region. He returned the following day to the ER for recurrent bleeding and had another suture placed at that time. He was then seen by his PCP and had the sutures removed on 09/03/2021. He was seen again on 09/12 by his PCP and referred to plastic surgery for a persistent symptomatic hematoma of the forehead. Meanwhile, his dual antiplatelet therapy was reduced down to Plavix alone after being seen by his PCP, as he is also already on apixaban for recurrent DVT/VTE prophylaxis. His last dose of Eliquis and Plavix were this morning. When he saw the plastic mitali jabari VILLAGOMEZ in the clinic today, the hematoma was attempted to be evacuated and he had acute pulsatile bleeding that was deemed to be arterial in nature from his forehead. Paramedics were called and he was transported to the ER. I discussed his case with the plastic surgeon in the ER as well as with Dr. Aviles regarding administration of Kcentra just prior to patient being taken to the OR for washout and tying off of the bleeding vessel in his forehead. He will be admitted to the hospitalist service due to his complex comorbidities for acute blood loss anemia and acute hemorrhage from the laceration on his forehead. Principal Diagnosis Post operative hemorrhage Discharge Exam Constitutional WD/WN, vitals as above Eyes + anicteric sclerae ENMT external ear and nose normal, oropharynx normal Neck trachea midline, no thyromegaly Respiratory normal respiratory effort; no labored breathing and no cough Musculoskeletal Extremities: extremities normal to inspection; no cyanosis and no clubbing Skin no rashes, warm and dry Neurologic moves all extremities and awake; no focal motor deficits Psychiatric A+Ox3, euthymic affect Lymphatic no lymphedema Discharge Data Allergies Allergy/AdvReac Type Severity Reaction Status Date / Time lisinopril Allergy Severe FACE SWELLS Verified 09/16/21 14:46 Consultations 09/16/21 17:36 ED Decision to Admit Stat 09/16/21 18:14 Consult Plastic Surgery Stat Procedures Performed Operation Date: 09/16/21 17:00 Actual Procedures p Evacuation of Hematoma, Controlled Bleeding of Left Forehead(Not Applicable) - Vilma Dale MD Hospital Course (1) Post-operative haemorrhage: Secondary to persistent bleeding from previous laceration from a fall that he sustained on 08/23 Also in the setting of taking apixaban and clopidogrel Remains hemodynamically stable, hemoglobin 10.6 on arrival then dropped to 10.2 -Admit to medical floor telemetry -Taken urgently to the OR with plastic surgery on the evening of 09/16 for washout and she tied off an arterial vessel in the frontalis muscle -Pressure dressing applied-only to be removed by surgery -Follow CBC -Postoperative care as per surgery -Continue IV Ancef for prophylaxis -Hold home Plavix and apixaban On 09/17 Patient tolerated procedure. Area is no longer bleeding. will monitor overnight. Patient is having penil pain, ordered pyridium. On 09/18 Patient is feeling better. Patient has no new complaints. (2) Acute blood loss anemia: As above, baseline hemoglobin 11-12, now dropped to 10.2 with bleeding hemoglobin is stable (3) Hyponatremia: Sodium mildly low here at 131 in the setting of blood loss anemia, also on indapamide Okay to continue indapamide stable Hypomagnesemia Replaced (4) Hypertension: Blood pressures are elevated here Okay to continue home indapamide, losartan, and substitute propranolol for pindolol (5) Hypercholesterolemia: Continue home statin (6) Type 2 diabetes mellitus: Most recent hemoglobin A1c well controlled at 6.4% Hold home Metformin, glipizide Accu-Cheks before meals and at bedtime, NovoLog supplemental insulin ADA diet (7) DVT (deep venous thrombosis): With a history of lower extremity and upper extremity DVT while on apixaban in 2020 Seen by hematology-unknown cause why he all of a sudden is hypercoagulable, no evidence of underlying cancer as per hematology notes Was treated with 6 months of full dose apixaban, now remains on apixaban 2.5 mg p.o. 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 approximately 1 week ago -We will now hold Plavix temporarily, but this will need to be restarted in the near future given multiple drug-eluting stents in place -Continue statin, beta-olayinka, losartan (9) Gout: No acute issues Continue allopurinol for prophylaxis (10) Chronic diarrhea: Continue Bentyl daily (11) GERD (gastroesophageal reflux disease): Continue pantoprazole daily (12) Hypothyroidism: Continue levothyroxine TSH normal in 04/2021 DVT prophylaxis-holding apixaban for now, ordered SCDs Disposition-admit to medical floor with telemetry Full code Total Time Total Time Spent Total Time Spent (In Minutes): 32 Discharge Plan Discharge Items Patient Disposition: Home - Self-Care Reason For Visit: ACUTE HEMORRHAGE Discharge Diagnosis: bleeding Activity: Resume your previous activity Non-emergency contact: Primary Care Provider Call non-emergency contact if: you have any medication questions Follow-up/Referrals: ProMatteo MD [Primary Care Provider] - 10/04/21 10:30 am Diet: Regular Addtl Attending Provider Instructions: You have been hospitalized for an acute medical problem. During your stay at [facility], we have made an effort to correct the problem that brought you to the hospital while keeping you as comfortable as possible. Medications were used to bring your condition under control and your discharge instructions will include directions for any medications you should take after leaving the hospital. Please make sure you see your Primary Care Provider as part of your follow up plan. 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 This possibility was discussed with you by Dr. Dale. Discussed this would be of importance because there is a possibility of recurrence. If this would occur, imaging would be required prior to any intervention, with possible resection of segment of proximal aspect of the artery. Thankfully you are stable for discharge. Please follow-up with your primary care physician regarding any adjustments to his blood thinners and blood pressure medications. You should follow-up with Dr. Dale's clinic on Thursday. Dressings may remain intact until that time. You will receive further wound care instructions on Thursday. Also recommend followup with rechecking magnesium in one week. Followup with your PCP in 1 week. Restart plavix, hold the eliquis. You took your plavix before you were discharged so your next dose will be tomorrow 09/19/21 I will order 2 more tablets of Pyridium for penile pain. You may take it up to tomorrow afternoon. Your magnesium is normal, however, will recommend to take magnesium supplements for 1 week. Will defer followup testing to Dr. Reeder. Pending Studies at Discharge: No Stand-Alone Forms: My [facility], Smoking Cessation Medications and DC Order Prescriptions: New phenazopyridine [Pyridium] 200 mg Tablet 200 mg PO TID PRN (Reason: penile pain) Qty: 2 RF: 0 magnesium oxide 400 mg (241.3 mg magnesium) tablet 400 mg PO DAILY Qty: 7 RF: 0 Continued pindolol 5 mg tablet 5 mg PO BID Qty: 180 RF: 3 ketoconazole 2 % cream 1 applic Topical BID PRN (Reason: IRRITATION) Qty: 60 RF: 3 nitroglycerin [Nitrostat] 0.4 mg tablet, sublingual 0.4 mg Sublingual UD PRN (Reason: Chest Pain) Qty: 25 RF: 1 glipizide 5 mg tablet extended release 24hr 5 mg PO BID 90 Days Qty: 180 RF: 3 clopidogrel 75 mg tablet 75 mg PO QAM 90 Days Qty: 90 RF: 3 indapamide 1.25 mg tablet 1.25 mg PO DAILY Qty: 90 RF: 3 simvastatin [Zocor] 40 mg tablet 40 mg PO HS Qty: 90 RF: 3 omeprazole 20 mg capsule,delayed release(DR/EC) 20 mg PO HS RF: 0 dicyclomine 10 mg capsule 10 mg PO QAM Qty: 90 RF: 3 losartan 100 mg tablet 100 mg PO QAM Qty: 90 RF: 3 meclizine 25 mg tablet 25 mg PO QID PRN (Reason: dizziness) Qty: 30 RF: 5 levothyroxine 150 mcg tablet 150 mcg PO DAILY Qty: 90 RF: 3 allopurinol 300 mg tablet 300 mg PO DAILY RF: 0 multivitamin Tablet 1 tab PO QAM RF: 0 metformin 500 mg tablet extended release 24 hr 1,000 mg PO BIDM RF: 0 Discontinued Eliquis 2.5 mg tablet 2.5 mg PO BID Qty: 60 RF: 2 Discharge Orders: Discharge Order (Routine); Ordered 09/18/21 Ordered By: Dwayne Andre Admission Data Admit Date/Time: 09/16/21 18:19 Attending Provider: Dwayne Andre Admit Provider: Brittaney Bedoya Primary Care Provider: Matteo Reeder Other Providers: Sanford Melgar ; Brittaney Bedoya ; Vilma Dale Other Interventions: Discharge Summary Assessment (RN) Last Done: 09/18/21 08:23 Coding Level of Care Code D/C DAY MANAGEMENT >30 MINS Diagnoses Post-operative haemorrhage L76.21 Procedure type: dermatologic Surgical complication system/body Area: skin Acute blood loss anemia D62 Hyponatremia E87.1 Hypertension I10 Hypercholesterolemia E78.00 Type 2 diabetes mellitus E11.9 DVT (deep venous thrombosis) I82.409 CAD (coronary artery disease) I25.10 Gout M10.9 Chronic diarrhea K52.9 GERD (gastroesophageal reflux disease) K21.9 Hypothyroidism E03.9
[2021-09-18 08:25] VITALS: PULSE 74
[2021-09-18] MEDS: LOSARTAN POTASSIUM 50 MG TAB PO SCH (08:34)
[2021-09-18] MEDS: MAGNESIUM OXIDE 400 MG TAB PO SCH (08:34)
[2021-09-18] MEDS: PROPRANOLOL HCL 10 MG TAB PO SCH (08:34)
[2021-09-18] MEDS: allopurinoL 300 MG TAB PO SCH (08:34)
[2021-09-18] MEDS: INDAPAMIDE 1.25 MG TAB PO SCH (08:35)
[2021-09-18] MEDS: MULTIVITAMIN TAB PO SCH (08:35)
[2021-09-18] MEDS: DICYCLOMINE HCL 10 MG CAP PO SCH (08:35)
--- NOTE | 2021-09-18 14:05 | Surgery Progress Note ---
Date of Service September 18, 2021 Assessment & Plan (1) Traumatic hematoma of forehead: Plan: Remains stable. Plan is for discharge home today with office followup on to remove dressing. Admission and Anticipated Discharge Date Admission Date: September 16, 2021 Subjective Patient seen at bedside around 7:30 am. Feeling well, pain controlled. Physical Exam Physical Exam: Optifoam dressing is in place. No drainage noted on the dressing, no further bleeding apparent. There does appear to be some mild weakness of the left brow, swelling of the left upper eyelid with some mild ptosis. Results & Data ([facility]) Vital Signs (Past 12 Hours) Vital Signs Temp Pulse Pulse Pulse Resp BP BP 09/18/21 08:23 97.9 F 74 59 L 18 152/65 H 116/68 09/18/21 07:33 97.9 F 59 L 18 116/68 09/18/21 07:15 60 09/18/21 03:00 98.1 F 57 L 20 152/65 H Pulse Ox 09/18/21 08:23 92 09/18/21 07:33 92 09/18/21 07:15 09/18/21 03:00 91 PG Care Time/CCT Total # of Minutes Spent Total Time Spent with Patient: Total time spent is greater than 50% in coordination of care (as documented) at patient's floor/unit and/or counseling patient: Coding Level of Care Code None Diagnoses Traumatic hematoma of forehead S00.83XA
== END 2021-09-18 09:21 | disposition home or self-care (01) | DRG 908 ==
LOC: ED 11:50 → ASU 18:18 → 2N 18:19 → SUATTDRO 18:19
DX: I72.8 Aneurysm of other specified arteries; K21.9 Gastro-esophageal reflux disease without esophagitis; M10.9 Gout, unspecified; D62 Acute posthemorrhagic anemia; E03.9 Hypothyroidism, unspecified; Y83.8 Other surgical procedures as the cause of abnormal reaction of the patient, or of later complication, without mention of misadventure at the time of the procedure; Z79.890 Hormone replacement therapy; E11.9 Type 2 diabetes mellitus without complications; L76.21 Postprocedural hemorrhage of skin and subcutaneous tissue following a dermatologic procedure; Z79.84 Long term (current) use of oral hypoglycemic drugs; Z88.8 Allergy status to other drugs, medicaments and biological substances; I25.2 Old myocardial infarction; R19.7 Diarrhea, unspecified; Z86.718 Personal history of other venous thrombosis and embolism; L76.31 Postprocedural hematoma of skin and subcutaneous tissue following a dermatologic procedure; E83.42 Hypomagnesemia; Z79.01 Long term (current) use of anticoagulants; E78.00 Pure hypercholesterolemia, unspecified; I25.10 Atherosclerotic heart disease of native coronary artery without angina pectoris; Z79.02 Long term (current) use of antithrombotics/antiplatelets; Z95.5 Presence of coronary angioplasty implant and graft; I10 Essential (primary) hypertension; E87.1 Hypo-osmolality and hyponatremia